=== PATIENT | female | born 1955 | race Caucasian/White ===

== ENCOUNTER 2021-02-18 09:57 | Emergency (ER) | payer MEDICARE ==
[2021-02-18 10:13] VITALS: TEMP 99
[2021-02-18] MEDS ORDERED: KETOROLAC 15 MG/ML 1 ML VIAL IVP STA (10:21)
--- NOTE | 2021-02-18 10:35 | ED ---
Weakness HPI - General Chief complaint: Weakness Stated complaint: Weakness Time Seen by Provider: 02/18/21 10:06 Source: patient, EMS Mode of arrival: EMS Limitations: no limitations - History of Present Illness Initial comments: Patient is a 65-year-old female with history of 50 [place], chronic bronchitis, presenting in the emergency department via EMS with multiple points today. She is mainly complaining of an increase in her fibromyalgia pain as well as increase in her shortness of breath. She states she has become really weak over the past few weeks. She's been unable to get up from her chair and toilet without help. Patient states she was supposed to have a follow-up with her doctors today but felt too weak to get out of the house so she called EMS instead. She denies any fevers or chills, she has been having some mild nausea, intermittent diarrhea. Nothing has been consistent. She denies any abdominal pain. She denies any dysuria. No chest pain, she feels like the shortness of breath is mostly with exertion but it takes a long time to recover when she sits down and rests. She denies any falls or trauma. She denies any dizziness or lightheadedness, no blurry vision. Patient denies any recent new medications. She has no further complaints at this time. Upon arrival to the ER, her vital signs are stable. - Related Data Home Medications Medication Instructions Recorded Confirmed Amitriptyline HCl [Elavil] 50 mg PO BID 02/18/21 02/18/21 Baclofen [Lioresal] 20 mg PO TID 02/18/21 02/18/21 Diclofenac Sodium [Voltaren] 75 mg PO BID 02/18/21 02/18/21 FLUoxetine HCL [PROzac] 20 mg PO DAILY 02/18/21 02/18/21 Furosemide [Lasix] 40 mg PO BID 02/18/21 02/18/21 Montelukast [Singulair] 10 mg PO DAILY 02/18/21 02/18/21 Omeprazole 40 mg PO DAILY 02/18/21 02/18/21 Pregabalin [Lyrica] 150 mg PO TID 02/18/21 02/18/21 hydrOXYzine pamoate [Vistaril] 25 mg PO TID 02/18/21 02/18/21 lisinopriL 30 mg PO DAILY 02/18/21 02/18/21 predniSONE 10 mg PO DAILY 02/18/21 02/18/21 Previous Rx's Medication Instructions Recorded Azithromycin [Zithromax Z-pack (6 0 mg PO DIRECTED #6 tab 02/18/21 tabs)] predniSONE [Deltasone] 20 mg PO DAILY 5 Days #5 tab 02/18/21 Allergies Allergy/AdvReac Type Severity Reaction Status Date / Time Penicillins Allergy Rash/Hives Verified 02/18/21 11:48 sulfamethoxazole Allergy Rash/Hives Verified 02/18/21 11:48 [From Bactrim] trimethoprim [From Bactrim] Allergy Rash/Hives Verified 02/18/21 11:48 Review of Systems ROS Statement: Those systems with pertinent positive or pertinent negative responses have been documented in the HPI. ROS Other: All systems not noted in ROS Statement are negative. Past Medical History Past Medical History: Fibromyalgia, Hypertension Additional Past Medical History / Comment(s): chronic bronchitis, muscle spasms History of Any Multi-Drug Resistant Organisms: None Reported Past Surgical History: Hysterectomy, Orthopedic Surgery Past Psychological History: Anxiety, Depression Smoking Status: Never smoker Past Alcohol Use History: None Reported Past Drug Use History: None Reported General Exam - General Exam Comments Initial Comments: GENERAL: Patient is well-developed and well-nourished. Patient is nontoxic and in no acute distress. HEAD: Atraumatic, normocephalic. EYES: Pupils equal round and reactive to light, extraocular movements intact, sclera anicteric, conjunctiva are normal. Eyelids were unremarkable. ENT: TMs normal, nares patent, oropharynx clear without exudates. Moist mucous memb ranes. NECK: Normal range of motion, supple without lymphadenopathy or JVD. LUNGS: Unlabored respirations. Breath sounds clear to auscultation bilaterally and equal. No wheezes rales or rhonchi. HEART: Regular rate and rhythm without murmurs, rubs or gallops. ABDOMEN: Soft, nontender, normoactive bowel sounds. No guarding, no rebound. No masses appreciated. : Deferred MUSCULOSKELETAL: Normal extremities with adequate strength and normal range of motion, no pitting or edema. No clubbing or cyanosis. NEUROLOGICAL: Patient is alert and oriented x 3. Motor and sensory are also intact. Cranial nerves II through XII grossly intact. Symmetrical smile. Normal speech, normal gait. PSYCH: Normal mood, normal affect. SKIN: Warm, Dry, normal turgor, no rashes or lesions noted. Limitations: no limitations Course Vital Signs 02/18/21 02/18/21 10:07 12:11 Temperature 99 F Pulse Rate 95 86 Respiratory 22 18 Rate Blood Pressure 132/73 139/73 O2 Sat by Pulse 96 100 Oximetry EKG Findings - EKG Comments: EKG Findings:: Normal sinus rhythm, normal ECG, no signs of acute process at this time. Ventricular rate 92, TX interval 170, QT 380. Medical Decision Making - Medical Decision Making Patient is a 65-year-old female with history of fibromyalgia, chronic bronchitis presenting with generalized weakness, increase in her chronic pain as well as increasing shortness of breath. Her vitals are stable, her exam reveals no acute process at this time. EKG shows normal sinus rhythm. Labs are unremarkable today including normal troponin, BNP. Urine shows no evidence of infection, cold it is negative. Chest x-ray shows limitation secondary to low lung volumes, there could be some early developing infiltrate in the right mid lung. I discussed these findings with the patient. Recommended continuing to follow-up with her special to this. Patient's cough and increase in shortness of breath, I will treat her with some steroids antibiotic for the next few days. She is agreeable to this plan of care and she is stable for discharge. Return parameters were discussed with her and she verbalized understanding. Case discussed with Dr. Perera. - Lab Data Result diagrams: 02/18/21 10:48 02/18/21 10:48 Lab Results 02/18/21 02/18/21 02/18/21 Range/Units 10:48 10:48 10:48 WBC 7.4 (3.8-10.6) k/uL RBC 4.14 (3.80-5.40) m/uL Hgb 12.2 (11.4-16.0) gm/dL Hct 38.9 (34.0-46.0) % MCV 94.0 (80.0-100.0) fL MCH 29.4 (25.0-35.0) pg MCHC 31.2 (31.0-37.0) g/dL RDW 13.4 (11.5-15.5) % Plt Count 277 (150-450) k/uL MPV 7.4 Neutrophils % 56 % Lymphocytes % 25 % Monocytes % 7 % Eosinophils % 11 % Basophils % 1 % Neutrophils # 4.2 (1.3-7.7) k/uL Lymphocytes # 1.8 (1.0-4.8) k/uL Monocytes # 0.5 (0-1.0) k/uL Eosinophils # 0.8 H (0-0.7) k/uL Basophils # 0.1 (0-0.2) k/uL PT 10.7 (9.0-12.0) sec INR 1.0 (<1.2) APTT 22.0 (22.0-30.0) sec Sodium 139 (137-145) mmol/L Potassium 4.4 (3.5-5.1) mmol/L Chloride 107 (98-107) mmol/L Carbon Dioxide 24 (22-30) mmol/L Anion Gap 8 mmol/L BUN 20 H (7-17) mg/dL Creatinine 0.56 (0.52-1.04) mg/dL Est GFR (CKD-EPI)AfAm >90 (>60 ml/min/1.73 sqM) Est GFR (CKD-EPI)NonAf >90 (>60 ml/min/1.73 sqM) Glucose 105 H (74-99) mg/dL Plasma Lactic Acid [place] (0.7-2.0) mmol/L Calcium 9.6 (8.4-10.2) mg/dL Magnesium 1.7 (1.6-2.3) mg/dL Total Bilirubin 0.5 (0.2-1.3) mg/dL AST 33 (14-36) U/L ALT 20 (4-34) U/L Alkaline Phosphatase 66 (38-126) U/L Troponin I (0.000-0.034) ng/mL NT-Pro-B Natriuret Pep pg/mL Total Protein 6.9 (6.3-8.2) g/dL Albumin 3.9 (3.5-5.0) g/dL Urine Color Urine Appearance (Clear) Urine pH (5.0-8.0) Ur Specific [place] (1.001-1.035) Urine Protein (Negative) Urine Glucose (UA) (Negative) Urine Ketones (Negative) Urine Blood (Negative) Urine Nitrite (Negative) Urine Bilirubin (Negative) Urine Urobilinogen (<2.0) mg/dL Ur Leukocyte Esterase (Negative) Coronavirus (PCR) (Not Detectd) 02/18/21 02/18/21 02/18/21 Range/Units 10:48 10:48 10:48 WBC (3.8-10.6) k/uL RBC (3.80-5.40) m/uL Hgb (11.4-16.0) gm/dL Hct (34.0-46.0) % MCV (80.0-100.0) fL MCH (25.0-35.0) pg MCHC (31.0-37.0) g/dL RDW (11.5-15.5) % Plt Count (150-450) k/uL MPV Neutrophils % % Lymphocytes % % Monocytes % % Eosinophils % % Basophils % % Neutrophils # (1.3-7.7) k/uL Lymphocytes # (1.0-4.8) k/uL Monocytes # (0-1.0) k/uL Eosinophils # (0-0.7) k/uL Basophils # (0-0.2) k/uL PT (9.0-12.0) sec INR (<1.2) APTT (22.0-30.0) sec Sodium (137-145) mmol/L Potassium (3.5-5.1) mmol/L Chloride (98-107) mmol/L Carbon Dioxide (22-30) mmol/L Anion Gap mmol/L BUN (7-17) mg/dL Creatinine (0.52-1.04) mg/dL Est GFR (CKD-EPI)AfAm (>60 ml/min/1.73 sqM) Est GFR (CKD-EPI)NonAf (>60 ml/min/1.73 sqM) Glucose (74-99) mg/dL Plasma Lactic Acid [place] 1.4 (0.7-2.0) mmol/L Calcium (8.4-10.2) mg/dL Magnesium (1.6-2.3) mg/dL Total Bilirubin (0.2-1.3) mg/dL AST (14-36) U/L ALT (4-34) U/L Alkaline Phosphatase (38-126) U/L Troponin I <0.012 (0.000-0.034) ng/mL NT-Pro-B Natriuret Pep 64 pg/mL Total Protein (6.3-8.2) g/dL Albumin (3.5-5.0) g/dL Urine Color Urine Appearance (Clear) Urine pH (5.0-8.0) Ur Specific [place] (1.001-1.035) Urine Protein (Negative) Urine Glucose (UA) (Negative) Urine Ketones (Negative) Urine Blood (Negative) Urine Nitrite (Negative) Urine Bilirubin (Negative) Urine Urobilinogen (<2.0) mg/dL Ur Leukocyte Esterase (Negative) Coronavirus (PCR) (Not Detectd) 02/18/21 02/18/21 Range/Units 10:48 12:52 WBC (3.8-10.6) k/uL RBC (3.80-5.40) m/uL Hgb (11.4-16.0) gm/dL Hct (34.0-46.0) % MCV (80.0-100.0) fL MCH (25.0-35.0) pg MCHC (31.0-37.0) g/dL RDW (11.5-15.5) % Plt Count (150-450) k/uL MPV Neutrophils % % Lymphocytes % % Monocytes % % Eosinophils % % Basophils % % Neutrophils # (1.3-7.7) k/uL Lymphocytes # (1.0-4.8) k/uL Monocytes # (0-1.0) k/uL Eosinophils # (0-0.7) k/uL Basophils # (0-0.2) k/uL PT (9.0-12.0) sec INR (<1.2) APTT (22.0-30.0) sec Sodium (137-145) mmol/L Potassium (3.5-5.1) mmol/L Chloride (98-107) mmol/L Carbon Dioxide (22-30) mmol/L Anion Gap mmol/L BUN (7-17) mg/dL Creatinine (0.52-1.04) mg/dL Est GFR (CKD-EPI)AfAm (>60 ml/min/1.73 sqM) Est GFR (CKD-EPI)NonAf (>60 ml/min/1.73 sqM) Glucose (74-99) mg/dL Plasma Lactic Acid [place] (0.7-2.0) mmol/L Calcium (8.4-10.2) mg/dL Magnesium (1.6-2.3) mg/dL Total Bilirubin (0.2-1.3) mg/dL AST (14-36) U/L ALT (4-34) U/L Alkaline Phosphatase (38-126) U/L Troponin I (0.000-0.034) ng/mL NT-Pro-B Natriuret Pep pg/mL Total Protein (6.3-8.2) g/dL Albumin (3.5-5.0) g/dL Urine Color Yellow Urine Appearance Clear (Clear) Urine pH 5.5 (5.0-8.0) Ur Specific [place] 1.022 (1.001-1.035) Urine Protein Trace H (Negative) Urine Glucose (UA) Negative (Negative) Urine Ketones Negative (Negative) Urine Blood Negative (Negative) Urine Nitrite Negative (Negative) Urine Bilirubin Negative (Negative) Urine Urobilinogen <2.0 (<2.0) mg/dL Ur Leukocyte Esterase Negative (Negative) Coronavirus (PCR) Not Detected (Not Detectd) Disposition Clinical Impression: Weakness, Cough, Chronic bronchitis Disposition: HOME SELF-CARE Condition: Stable Instructions (If sedation given, give patient instructions): Viral Syndrome (ED) Additional Instructions: Please return to the Emergency Department if symptoms worsen or any other concerns. Take medications as prescribed. Follow-up with your family doctor. Prescriptions: predniSONE [Deltasone] 20 mg PO DAILY 5 Days #5 tab Azithromycin [Zithromax Z-pack (6 tabs)] 0 mg PO DIRECTED #6 tab Is patient prescribed a controlled substance at d/c from ED?: No Referrals: Juan Carlos Garcia MD [Primary Care Provider] - 1-2 days Time of Disposition: 13:39
[2021-02-18 11:14] LABS: Basophils # (A) 0.1 k/uL (0-0.2); Basophils % (A) 1 %; Eosinophils # (A) 0.8 k/uL (0-0.7); Eosinophils % (A) 11 %; HCT 38.9 % (34.0-46.0); HGB 12.2 gm/dL (11.4-16.0); Lymphocytes # (A) 1.8 k/uL (1.0-4.8); Lymphocytes % (A) 25 %; MCH 29.4 pg (25.0-35.0); MCHC 31.2 g/dL (31.0-37.0); Mean Platelet Volume 7.4; Monocytes # (A) 0.5 k/uL (0-1.0); Monocytes % (A) 7 %; Neutrophils # (A) 4.2 k/uL (1.3-7.7); Neutrophils % (A) 56 %; Platelet Count 277 k/uL (150-450); RBC 4.14 m/uL (3.80-5.40); RDW 13.4 % (11.5-15.5); WBC 7.4 k/uL (3.8-10.6)
--- NOTE | 2021-02-18 11:18 | XR ---
EXAMINATION TYPE: XR chest 2V DATE OF EXAM: 02/18/2021 COMPARISON: 02/18/2021 HISTORY: 65-year-old female weakness, chest pain, shortness of breath TECHNIQUE: AP and lateral views FINDINGS: Heart normal size. Aorta and pulmonary vasculature within normal limits. Diffuse hazy densities on la rge patient body habitus limits the evaluation. Suspect some underlying strandy areas of atelectasis. Early developing focal opacity at the periphery of the right midlung is difficult to exclude. Low ivette ng volumes. IMPRESSION: Exam limitations due to low lung volumes and large patient body habitus. There could be some atelecta sis or early developing infiltrate at the periphery of the right mid lung.
[2021-02-18 11:28] LABS: ALT 20 U/L (4-34); AST 33 U/L (14-36); African American GFR (CKD) >90 (>60 ml/min/1.73 sqM); Albumin 3.9 g/dL (3.5-5.0); Alkaline Phosphatase 66 U/L (38-126); Anion Gap 8 mmol/L; Blood Urea Nitrogen 20 mg/dL (7-17); Calcium 9.6 mg/dL (8.4-10.2); Carbon Dioxide 24 mmol/L (22-30); Chloride 107 mmol/L (98-107); Glucose 105 mg/dL (74-99); Magnesium 1.7 mg/dL (1.6-2.3); Non-African American GFR(CKD) >90 (>60 ml/min/1.73 sqM); Potassium 4.4 mmol/L (3.5-5.1); Sodium 139 mmol/L (137-145); Total Bilirubin 0.5 mg/dL (0.2-1.3); Total Protein 6.9 g/dL (6.3-8.2)
[2021-02-18 11:34] LABS: Prothrombin Time 10.7 sec (9.0-12.0)
[2021-02-18 12:14] VITALS: BP 139/73; PULSE 86; RESP 18
[2021-02-18 13:30] LABS: Appearance,Urine Clear (Clear); Bilirubin,Urine Negative (Negative); Blood,Urine Negative (Negative); Color,Urine Yellow; Glucose,Urine (UA) Negative (Negative); Ketones,Urine Negative (Negative); Leukocyte Esterase,Urine Negative (Negative); Nitrite,Urine Negative (Negative); PH, Urine 5.5 (5.0-8.0); Protein,Urine Trace (Negative); Specific Gravity,Urine 1.022 (1.001-1.035); Urobilinogen,Urine <2.0 mg/dL (<2.0)
== END 2021-02-18 13:51 | disposition home or self-care (01) ==
LOC: EC 09:57
DX: J40 Bronchitis, not specified as acute or chronic (principal); R53.1 Weakness; M79.7 Fibromyalgia; I10 Essential (primary) hypertension; F41.9 Anxiety disorder, unspecified; F32.9 Major depressive disorder, single episode, unspecified; Z88.0 Allergy status to penicillin; Z88.1 Allergy status to other antibiotic agents; Z88.2 Allergy status to sulfonamides; Z90.710 Acquired absence of both cervix and uterus; Z20.822 Contact with and (suspected) exposure to COVID-19
CPT/HCPCS: 36415; 71046; 80053; 81003; 83605; 83735; 83880; 84484; 85025; 85610; 85730; 87635; 93005; 96374; 99285

== ENCOUNTER → 2021-02-25 | Outpatient (CLI) | payer MEDICARE ==
[2021-02-26 06:56] LABS: T4, Free (Free Thyroxine) 1.2 ng/dL (0.80-1.80)
[2021-02-26 11:52] LABS: Basophils # (A) 0.1 k/uL (0-0.2); Basophils % (A) 1 %; Eosinophils # (A) 0.4 k/uL (0-0.7); Eosinophils % (A) 3 %; HCT 41.3 % (34.0-46.0); HGB 12.8 gm/dL (11.4-16.0); Hypochromasia Slight; Lymphocytes # (A) 2.5 k/uL (1.0-4.8); Lymphocytes % (A) 21 %; MCH 29.7 pg (25.0-35.0); MCHC 31.1 g/dL (31.0-37.0); MCV 95.6 fL (80.0-100.0); Mean Platelet Volume 9.9; Monocytes # (A) 0.6 k/uL (0-1.0); Monocytes % (A) 5 %; Neutrophils # (A) 8.5 k/uL (1.3-7.7); Neutrophils % (A) 69 %; Platelet Count 317 k/uL (150-450); RBC 4.32 m/uL (3.80-5.40); RDW 13.8 % (11.5-15.5); WBC 12.2 k/uL (3.8-10.6)
[2021-02-26 14:45] LABS: Erythrocyte Sedimentation Rate 25 mm/hr (0-20)
[2021-02-26 23:01] LABS: African American GFR (CKD) 110.9 (60.0-200.0); Albumin 4.9 g/dL (3.80-4.90); Albumin/Globulin Ratio 1.88 (1.60-3.17); Anion Gap 13.8 mmol/L (4.00-12.00); BUN/Creat Ratio 28.33 Ratio (12.00-20.00); Carbon Dioxide 24.2 mmol/L (21.6-31.8); Globulin 2.6 g/dL (1.6-3.3); Non-African American GFR(CKD) 95.7 (60.0-200.0); Potassium 4.2 mmol/L (3.5-5.5); Total Bilirubin 0.4 mg/dL (0.3-1.2); Total Protein 7.5 g/dL (6.2-8.2)
[2021-02-26 23:02] LABS: C Reactive Protein 0.8 mg/dL (0.0-0.8)
== END | disposition home or self-care (01) ==
LOC: LABWHC1 15:54
PROVIDERS: ATTEND Psychiatry & Neurology Neurology
DX: Z51.81 Encounter for therapeutic drug level monitoring (principal); E53.9 Vitamin B deficiency, unspecified; E55.9 Vitamin D deficiency, unspecified; I49.9 Cardiac arrhythmia, unspecified; R00.0 Tachycardia, unspecified; R94.31 Abnormal electrocardiogram [ECG] [EKG]
CPT/HCPCS: 36415; 80053; 82306; 82550; 82607; 83540; 84207; 84439; 84443; 84466; 84481; 85025; 85652; 86038; 86140; 93005

== ENCOUNTER → 2021-03-18 | Outpatient (CLI) | payer MEDICARE ==
--- NOTE | 2021-03-19 08:17 | CT ---
EXAMINATION TYPE: CT chest wo con DATE OF EXAM: 03/18/2021 COMPARISON: Chest x-ray 02/25/2021 HISTORY: Interstitial lung disease CT DLP: 1015.30 mGycm. Automated Exposure Control for Dose Reduction was Utilized. TECHNIQUE: CT scan of the thorax is performed without IV contrast. FINDINGS: LUNGS: The lungs show some air bronchograms, consolidation along the right hemidiaphragm which is adelina vated, findings likely represent scarring or atelectasis, difficult to exclude pneumonia. There is no pleural effusion or pneumothorax seen. The tracheobronchial tree is patent. MEDIASTINUM: Lack of IV contrast is noted to limit evaluation for mediastinal and especially hilar ad enopathy. There are no definitive greater than 1 cm hilar or mediastinal lymph nodes. No cardiomega ly or pericardial effusion is seen. The heart is not enlarged. There are prominent epicardial fat pad s. OTHER: Liver shows low attenuation likely due to hepatic steatosis, liver is enlarged. IMPRESSION: Findings at the right lung base as described. Hepatomegaly, hepatic steatosis. Lack of co ntrast could compromise sensitivity of the exam.
== END | disposition home or self-care (01) ==
LOC: RADCTMAIN 17:34
PROVIDERS: ATTEND Internal Medicine
DX: K76.0 Fatty (change of) liver, not elsewhere classified (principal); R16.0 Hepatomegaly, not elsewhere classified
CPT/HCPCS: 71250

== ENCOUNTER 2022-03-27 11:22 | Emergency (ER) | payer MEDICARE ==
[2022-03-27 11:35] VITALS: BP 122/73; PULSE 76; RESP 16; TEMP 97.8
[2022-03-27] MEDS ORDERED: SODIUM CHLORIDE 0.9% 500 ML 500 ML IV STA (12:16)
[2022-03-27 12:27] LABS: Basophils # (A) 0.1 k/uL (0-0.2); Basophils % (A) 1 %; Eosinophils # (A) 0.2 k/uL (0-0.7); Eosinophils % (A) 2 %; HCT 45.1 % (34.0-46.0); HGB 14.2 gm/dL (11.4-16.0); Hypochromasia Moderate; Lymphocytes # (A) 1.3 k/uL (1.0-4.8); Lymphocytes % (A) 10 %; MCH 29.3 pg (25.0-35.0); MCHC 31.6 g/dL (31.0-37.0); MCV 92.7 fL (80.0-100.0); Mean Platelet Volume 8.5; Monocytes # (A) 0.5 k/uL (0-1.0); Monocytes % (A) 4 %; Neutrophils # (A) 11.3 k/uL (1.3-7.7); Neutrophils % (A) 83 %; Platelet Count 226 k/uL (150-450); RBC 4.86 m/uL (3.80-5.40); RDW 14.2 % (11.5-15.5); WBC 13.7 k/uL (3.8-10.6)
[2022-03-27 12:40] LABS: Partial Thromboplastin Time 22.5 sec (22.0-30.0); Prothrombin Time 10.7 sec (9.0-12.0)
[2022-03-27 12:54] LABS: Albumin 4.2 g/dL (3.5-5.0); Calcium 9.3 mg/dL (8.4-10.2); Total Bilirubin 0.6 mg/dL (0.2-1.3); Total Protein 7.4 g/dL (6.3-8.2)
[2022-03-27 13:34] LABS: Appearance,Urine Clear (Clear); Bacteria,Urine Rare /hpf; Bilirubin,Urine Negative (Negative); Blood,Urine Negative (Negative); Color,Urine Yellow; Glucose,Urine (UA) Negative (Negative); Ketones,Urine Negative (Negative); Leukocyte Esterase,Urine Large (Negative); Nitrite,Urine Positive (Negative); PH, Urine 5.5 (5.0-8.0); Protein,Urine Trace (Negative); RBC,Urine 4 /hpf (0-5); Specific Gravity,Urine 1.013 (1.001-1.035); Urobilinogen,Urine <2.0 mg/dL (<2.0); WBC,Urine 32 /hpf (0-5)
--- NOTE | 2022-03-27 14:00 | XR ---
EXAMINATION TYPE: XR chest 1V DATE OF EXAM: 03/27/2022 1:50 PM COMPARISON: Chest radiographs from 02/18/2021. TECHNIQUE: XR chest 1V Frontal view of the chest. CLINICAL INDICATION:Female, 66 years old with history of fall, pain; FINDINGS: Diffuse haziness related to large body habitus which limits evaluation. Lungs/Pleura: Low lung volumes are present. There is no evidence of pleural effusion, focal consolida tion, or pneumothorax. Pulmonary vascularity: Unremarkable. Heart/mediastinum: Cardiomediastinal silhouette is unremarkable. Musculoskeletal: No acute osseous pathology. IMPRESSION: Low lung volumes with large body habitus limits evaluation. No evidence of acute cardiopulmonary proc ess.
--- NOTE | 2022-03-27 14:02 | XR ---
EXAMINATION TYPE: XR Hip LT and AP Pelvis DATE OF EXAM: 03/27/2022 1:50 PM INDICATION: Patient age:Female; 66 years old; Reason for study: fall, pain; PHH. COMPARISON: None. TECHNIQUE: The left hip was examined in the frontal and lateral projections and a AP pelvis. FINDINGS: Limited examination due to patient's body habitus. No evidence of any acute osseous patholo gy, joint dislocation, or soft tissue swelling. IMPRESSION: No acute osseous pathology.
--- NOTE | 2022-03-27 14:41 | ED ---
Weakness HPI - General Chief complaint: Weakness Stated complaint: increased weakness Time Seen by Provider: 03/27/22 11:28 Source: patient, EMS, RN notes reviewed Mode of arrival: EMS Limitations: physical limitation - History of Present Illness Initial comments: This a 66-year-old female presents emergency department via EMS with family for evaluation of weakness, fall. Patient lives at home with family who is currently bedbound only transfers with multiple people to a commode. Patient has not walked in several years. Patient states that she's had several falls during transferring with people in which she had a call EMS for lift assist. Patient does complain of mild hip discomfort after a fall. Patient denies any head injury no loss conscious. Patient states she has issues with inner incontinence and which she states that she's been having more frequent accidents. - Related Data Home Medications Medication Instructions Recorded Confirmed Amitriptyline HCl [Elavil] 50 - 100 mg PO HS 02/18/21 03/27/22 Baclofen [Lioresal] 20 mg PO TID 02/18/21 03/27/22 Diclofenac Sodium [Voltaren] 75 mg PO BID 02/18/21 03/27/22 Furosemide [Lasix] 40 mg PO BID PRN 02/18/21 03/27/22 Montelukast [Singulair] 10 mg PO DAILY 02/18/21 03/27/22 Omeprazole 40 mg PO DAILY 02/18/21 03/27/22 Pregabalin [Lyrica] 150 mg PO TID 02/18/21 03/27/22 lisinopriL 30 mg PO DAILY 02/18/21 03/27/22 predniSONE 10 mg PO DAILY PRN 02/18/21 03/27/22 Cyclobenzaprine [Flexeril] 10 mg PO TID PRN 03/27/22 03/27/22 FLUoxetine HCL 40 mg PO DAILY 03/27/22 03/27/22 FLUoxetine HCL 40 mg PO DAILY 03/27/22 03/27/22 Naproxen [EC-Naprosyn] 500 mg PO BID PRN 03/27/22 03/27/22 hydrOXYzine HCL [Atarax] 25 mg PO TID PRN 03/27/22 03/27/22 Allergies Allergy/AdvReac Type Severity Reaction Status Date / Time Penicillins Allergy Rash/Hives Verified 03/27/22 12:35 sulfamethoxazole Allergy Rash/Hives Verified 03/27/22 12:35 [From Bactrim] trimethoprim [From Bactrim] Allergy Rash/Hives Verified 03/27/22 12:35 Review of Systems ROS Statement: Those systems with pertinent positive or pertinent negative responses have been documented in the HPI. ROS Other: All systems not noted in ROS Statement are negative. Past Medical History Past Medical History: Fibromyalgia, Hypertension Additional Past Medical History / Comment(s): chronic bronchitis, muscle spasms History of Any Multi-Drug Resistant Organisms: None Reported Past Surgical History: Hysterectomy, Orthopedic Surgery Past Psychological History: Anxiety, Depression Smoking Status: Never smoker Past Alcohol Use History: None Reported Past Drug Use History: None Reported General Exam Limitations: no limitations, physical limitation General appearance: alert, in no apparent distress Head exam: Present: atraumatic, normocephalic, normal inspection Eye exam: Present: normal appearance, PERRL, EOMI. Absent: scleral icterus, conjunctival injection, periorbital swelling Respiratory exam: Present: normal lung sounds bilaterally. Absent: respiratory distress, wheezes, rales, rhonchi, stridor Cardiovascular Exam: Present: regular rate, normal rhythm, normal heart sounds. Absent: systolic murmur, diastolic murmur, rubs, gallop, clicks GI/Abdominal exam: Present: soft, normal bowel sounds. Absent: distended, tenderness, guarding, rebound, rigid Neurological exam: Present: alert, oriented X3 Course Vital Signs 03/27/22 11:26 Temperature 97.8 F Pulse Rate 76 Respiratory 16 Rate Blood Pressure 122/73 O2 Sat by Pulse 93 L Oximetry Medical Decision Making - Medical Decision Making 66-year-old female presented for generalized weakness. Patient has evidence of urinary tract infection. Patient is currently bedbound unable to ambulate and has been this way for several years. He shouldn't has multiple people including home health care nursing to perform her daily activities. Patient unable to perform ADLs by herself. Patient we discharged with Tomasz lift, Le catheter with continuation of home health care nursing. - Lab Data Result diagrams: 03/27/22 12:00 03/27/22 12:00 Lab Results 03/27/22 03/27/22 03/27/22 Range/Units 12:00 12:00 12:00 WBC 13.7 H (3.8-10.6) k/uL RBC 4.86 (3.80-5.40) m/uL Hgb 14.2 (11.4-16.0) gm/dL Hct 45.1 (34.0-46.0) % MCV 92.7 (80.0-100.0) fL MCH 29.3 (25.0-35.0) pg MCHC 31.6 (31.0-37.0) g/dL RDW 14.2 (11.5-15.5) % Plt Count 226 (150-450) k/uL MPV 8.5 Neutrophils % 83 % Lymphocytes % 10 % Monocytes % 4 % Eosinophils % 2 % Basophils % 1 % Neutrophils # 11.3 H (1.3-7.7) k/uL Lymphocytes # 1.3 (1.0-4.8) k/uL Monocytes # 0.5 (0-1.0) k/uL Eosinophils # 0.2 (0-0.7) k/uL Basophils # 0.1 (0-0.2) k/uL Hypochromasia Moderate PT 10.7 (9.0-12.0) sec INR 1.0 (<1.2) APTT 22.5 (22.0-30.0) sec Sodium 143 (137-145) mmol/L Potassium 5.0 (3.5-5.1) mmol/L Chloride 104 (98-107) mmol/L Carbon Dioxide 26 (22-30) mmol/L Anion Gap 13 mmol/L BUN 55 H (7-17) mg/dL Creatinine 1.53 H (0.52-1.04) mg/dL Est GFR (CKD-EPI)AfAm 41 (>60 ml/min/1.73 sqM) Est GFR (CKD-EPI)NonAf 35 (>60 ml/min/1.73 sqM) Glucose 88 (74-99) mg/dL Plasma Lactic Acid Pelon (0.7-2.0) mmol/L Calcium 9.3 (8.4-10.2) mg/dL Magnesium 2.0 (1.6-2.3) mg/dL Total Bilirubin 0.6 (0.2-1.3) mg/dL AST 37 H (14-36) U/L ALT 32 (4-34) U/L Alkaline Phosphatase 96 (38-126) U/L Troponin I (0.000-0.034) ng/mL Total Protein 7.4 (6.3-8.2) g/dL Albumin 4.2 (3.5-5.0) g/dL Urine Color Urine Appearance (Clear) Urine pH (5.0-8.0) Ur Specific [place] (1.001-1.035) Urine Protein (Negative) Urine Glucose (UA) (Negative) Urine Ketones (Negative) Urine Blood (Negative) Urine Nitrite (Negative) Urine Bilirubin (Negative) Urine Urobilinogen (<2.0) mg/dL Ur Leukocyte Esterase (Negative) Urine RBC (0-5) /hpf Urine WBC (0-5) /hpf Urine Bacteria (None) /hpf 03/27/22 03/27/22 03/27/22 Range/Units 12:00 12:00 13:09 WBC (3.8-10.6) k/uL RBC (3.80-5.40) m/uL Hgb (11.4-16.0) gm/dL Hct (34.0-46.0) % MCV (80.0-100.0) fL MCH (25.0-35.0) pg MCHC (31.0-37.0) g/dL RDW (11.5-15.5) % Plt Count (150-450) k/uL MPV Neutrophils % % Lymphocytes % % Monocytes % % Eosinophils % % Basophils % % Neutrophils # (1.3-7.7) k/uL Lymphocytes # (1.0-4.8) k/uL Monocytes # (0-1.0) k/uL Eosinophils # (0-0.7) k/uL Basophils # (0-0.2) k/uL Hypochromasia PT (9.0-12.0) sec INR (<1.2) APTT (22.0-30.0) sec Sodium (137-145) mmol/L Potassium (3.5-5.1) mmol/L Chloride (98-107) mmol/L Carbon Dioxide (22-30) mmol/L Anion Gap mmol/L BUN (7-17) mg/dL Creatinine (0.52-1.04) mg/dL Est GFR (CKD-EPI)AfAm (>60 ml/min/1.73 sqM) Est GFR (CKD-EPI)NonAf (>60 ml/min/1.73 sqM) Glucose (74-99) mg/dL Plasma Lactic Acid Pelon 1.3 (0.7-2.0) mmol/L Calcium (8.4-10.2) mg/dL Magnesium (1.6-2.3) mg/dL Total Bilirubin (0.2-1.3) mg/dL AST (14-36) U/L ALT (4-34) U/L Alkaline Phosphatase (38-126) U/L Troponin I <0.012 (0.000-0.034) ng/mL Total Protein (6.3-8.2) g/dL Albumin (3.5-5.0) g/dL Urine Color Yellow Urine Appearance Clear (Clear) Urine pH 5.5 (5.0-8.0) Ur Specific [place] 1.013 (1.001-1.035) Urine Protein Trace H (Negative) Urine Glucose (UA) Negative (Negative) Urine Ketones Negative (Negative) Urine Blood Negative (Negative) Urine Nitrite Positive H (Negative) Urine Bilirubin Negative (Negative) Urine Urobilinogen <2.0 (<2.0) mg/dL Ur Leukocyte Esterase Large H (Negative) Urine RBC 4 (0-5) /hpf Urine WBC 32 H (0-5) /hpf Urine Bacteria Rare H (None) /hpf Disposition Clinical Impression: UTI (urinary tract infection), Weakness, Unable to ambulate Disposition: HOME SELF-CARE Condition: Stable Instructions (If sedation given, give patient instructions): Urinary Tract Infection in Women (DC) Additional Instructions: Please return to the Emergency Department if symptoms worsen or any other concerns. Is patient prescribed a controlled substance at d/c from ED?: No Referrals: Juan Carlos Garcia MD [Primary Care Provider] - 1-2 days Time of Disposition: 14:40
== END 2022-03-27 16:11 | disposition home or self-care (01) ==
LOC: EC 11:22
DX: N39.0 Urinary tract infection, site not specified (principal); F32.A Depression, unspecified; F41.9 Anxiety disorder, unspecified; Z79.899 Other long term (current) drug therapy; Z79.811 Long term (current) use of aromatase inhibitors; Z88.0 Allergy status to penicillin; Z88.2 Allergy status to sulfonamides
CPT/HCPCS: 36415; 71045; 73502; 80053; 81001; 83605; 83735; 84484; 85025; 85610; 85730; 87086; 93005; 96360; 99285

== ENCOUNTER 2022-04-02 11:09 | Inpatient (IN) | payer MEDICARE ==
[2022-04-02] MEDS ORDERED: IPRATROPIUM-ALBUTEROL 3 ML NEB INHALATION STA (11:16)
[2022-04-02 11:38] LABS: Basophils # (A) 0.1 k/uL (0-0.2); Basophils % (A) 1 %; Eosinophils # (A) 0.8 k/uL (0-0.7); Eosinophils % (A) 4 %; HCT 41.3 % (34.0-46.0); HGB 13.2 gm/dL (11.4-16.0); Hypochromasia Slight; Lymphocytes % (A) 10 %; MCH 29.1 pg (25.0-35.0); MCV 90.9 fL (80.0-100.0); Mean Platelet Volume 9.8; Monocytes # (A) 0.9 k/uL (0-1.0); Monocytes % (A) 4 %; Neutrophils # (A) 15.9 k/uL (1.3-7.7); Neutrophils % (A) 80 %; Platelet Count 190 k/uL (150-450); RBC 4.54 m/uL (3.80-5.40); RDW 14.7 % (11.5-15.5); WBC 19.8 k/uL (3.8-10.6)
--- NOTE | 2022-04-02 11:41 | XR ---
EXAMINATION TYPE: XR chest 1V portable DATE OF EXAM: 04/02/2022 HISTORY: Shortness of breath. COMPARISON: 03/27/22 TECHNIQUE: Single view of the chest is submitted. FINDINGS: Demonstrated are scattered senescent parenchymal change. Patchy density right infrahilar region may reflect developing infiltrate. Continued elevation right h emidiaphragm. The heart is stable. Hilar and mediastinal structures are within normal limits. Degenerative changes are seen of the dorsal spine. IMPRESSION: 1. Patchy density right infrahilar region may reflect developing infiltrate. Continued elevation rig ht hemidiaphragm.
[2022-04-02] MEDS ORDERED: VANCOMYCIN IV PER PHARMACY 1 EACH MISC MISCELLANE PRN (11:43)
[2022-04-02] MEDS ORDERED: SODIUM CHLORIDE 0.9% 1,000 ML IV STA ×2 (11:44→13:26)
[2022-04-02] MEDS ORDERED: SODIUM CHLORIDE 0.9% 500 ML 500 ML IV STA (11:45)
[2022-04-02 11:46] LABS: ALT 48 U/L (4-34); AST 121 U/L (14-36); African American GFR (CKD) 24 (>60 ml/min/1.73 sqM); Albumin 4.1 g/dL (3.5-5.0); Alcohol <10 mg/dL; Alkaline Phosphatase 92 U/L (38-126); Anion Gap 17 mmol/L; Blood Urea Nitrogen 85 mg/dL (7-17); Carbon Dioxide 24 mmol/L (22-30); Chloride 98 mmol/L (98-107); Glucose 99 mg/dL (74-99); Non-African American GFR(CKD) 21 (>60 ml/min/1.73 sqM); Sodium 139 mmol/L (137-145); Total Protein 7.4 g/dL (6.3-8.2)
[2022-04-02] MEDS ORDERED: VANCOMYCIN 2,500 MG in SODIUM CHLORIDE 0.9% 500 ML 500 ML IVPB STA (11:47)
[2022-04-02 11:48] LABS: Prothrombin Time 10.5 sec (9.0-12.0)
[2022-04-02 11:52] LABS: Partial Thromboplastin Time 17.9 sec (22.0-30.0)
[2022-04-02] MEDS ORDERED: CEFEPIME 2 GM in SODIUM CHLORIDE 0.9% 100 ML IVPB SCH (12:00)
[2022-04-02 12:01] LABS: Potassium 6.1 mmol/L (3.5-5.1)
[2022-04-02 12:07] LABS: ABG Base Excess 0.8 mmol/L; ABG HCO3 27 mmol/L (21-25); ABG PCO2 52 mmHg (35-45); ABG PH 7.33 (7.35-7.45); ABG PO2 91 mmHg (83-108); ABG TCO2 28 mmol/L (19-24); Allen Test Performed? Yes
[2022-04-02] MEDS: NOREPINEPHRINE 4 MG in SODIUM CHLORIDE 0.9% 250 ML IV SCH (12:34)
--- NOTE | 2022-04-02 12:34 | ED ---
General Adult HPI - General Chief complaint: Shortness of Breath Stated complaint: BETHANY Time Seen by Provider: 04/02/22 11:23 Source: patient, EMS, RN notes reviewed, old records reviewed Mode of arrival: EMS Limitations: no limitations - History of Present Illness Initial comments: Patient is a 66-year-old female who presents to the emergency Department with altered mental status, respiratory distress, low blood pressure. Patient was diagnosed with a UTI a few days ago and set up with home nursing care, as well as 1 lifts. She decided not to take any of her antibiotics at home because they made her have diarrhea. She became in more respiratory distress this morning. She has had decreased by mouth intake per family. She is unable to provide much history. Denies any pain. Presented with EMS. Unknown past medical history. Possible history of CHF. Possible history of COPD. Has been bedbound for multiple weeks to months. It is obese. Chronic weakness. Presents over concern for respiratory distress and infection. - Related Data Home Medications Medication Instructions Recorded Confirmed Amitriptyline HCl [Elavil] 50 - 100 mg PO HS 02/18/21 04/02/22 Baclofen [Lioresal] 20 mg PO TID 02/18/21 04/02/22 Diclofenac Sodium [Voltaren] 75 mg PO BID 02/18/21 04/02/22 Furosemide [Lasix] 40 mg PO BID PRN 02/18/21 04/02/22 Montelukast [Singulair] 10 mg PO DAILY 02/18/21 04/02/22 Omeprazole 40 mg PO DAILY 02/18/21 04/02/22 Pregabalin [Lyrica] 150 mg PO TID 02/18/21 04/02/22 lisinopriL 30 mg PO DAILY 02/18/21 04/02/22 predniSONE 10 mg PO DAILY PRN 02/18/21 04/02/22 Cyclobenzaprine [Flexeril] 10 mg PO TID PRN 03/27/22 04/02/22 FLUoxetine HCL 40 mg PO DAILY 03/27/22 04/02/22 Naproxen [EC-Naprosyn] 500 mg PO BID PRN 03/27/22 04/02/22 hydrOXYzine HCL [Atarax] 25 mg PO TID PRN 03/27/22 04/02/22 Previous Rx's Medication Instructions Recorded Cephalexin [Keflex] 500 mg PO Q8HR #21 cap 03/27/22 Allergies Allergy/AdvReac Type Severity Reaction Status Date / Time Penicillins Allergy Rash/Hives Verified 04/02/22 15:12 sulfamethoxazole Allergy Rash/Hives Verified 04/02/22 15:12 [From Bactrim] trimethoprim [From Bactrim] Allergy Rash/Hives Verified 04/02/22 15:12 Review of Systems ROS Statement: Those systems with pertinent positive or pertinent negative responses have been documented in the HPI. ROS Other: All systems not noted in ROS Statement are negative. Past Medical History Past Medical History: Fibromyalgia, Hypertension Additional Past Medical History / Comment(s): chronic bronchitis, muscle spasms, UTI History of Any Multi-Drug Resistant Organisms: None Reported Past Surgical History: Hysterectomy, Orthopedic Surgery Past Psychological History: Anxiety, Depression Smoking Status: Never smoker Past Alcohol Use History: None Reported Past Drug Use History: None Reported General Exam - General Exam Comments Initial Comments: General: Increased work of breathing. Patient's is obese. Appears to be weak. Poor historian. HEAD: Normal with no signs of head trauma. EYES: PERRLA, EOMI, conjunctiva normal, no discharge. Pupils 3 mm and equal bilaterally. ENT: Hearing grossly intact, normal oropharynx. Mucous membranes are mildly dry. RESPIRATORY: Pupils auscultated breath sounds bilaterally. Slight wheeze. No obvious crackles. Hypoxic to 88% on room air, improved on BiPAP. C/V: Regular rate and rhythm. S1 and S2 auscultated. Chronic edema. Peripheral pulses 1-2+ in all extremities. ABD: Abd is soft, nontender, nondistended. Patient is obese. Le catheter in place. EXT: No obvious deformities. SKIN: No rashes or lesions observed on exposed skin. NEURO: Intermittently alert. Oriented to name only. GCS fluctuates between 9 and 11. Patient will move all 4 extremities. Is chronically bedbound. Difficult to complete full neurological exam at this time. Limitations: no limitations Course Vital Signs 04/02/22 04/02/22 04/02/22 11:09 11:14 11:17 Temperature 97.5 F L Pulse Rate 86 90 Respiratory 24 Rate Blood Pressure 100/76 O2 Sat by Pulse 88 L Oximetry Fraction of 50 Inspired Oxygen (FIO2) 04/02/22 04/02/22 04/02/22 11:19 11:25 13:04 Temperature Pulse Rate 84 75 Respiratory 16 Rate Blood Pressure 87/50 O2 Sat by Pulse Oximetry Fraction of 50 Inspired Oxygen (FIO2) 04/02/22 04/02/22 04/02/22 14:11 14:21 15:38 Temperature Pulse Rate 74 64 90 Respiratory 13 12 20 Rate Blood Pressure 99/44 142/82 140/81 O2 Sat by Pulse 100 100 97 Oximetry Fraction of Inspired Oxygen (FIO2) 04/02/22 15:47 Temperature Pulse Rate 90 Respiratory 16 Rate Blood Pressure 127/70 O2 Sat by Pulse 97 Oximetry Fraction of Inspired Oxygen (FIO2) Procedures - Central Line Placement Left IJ Consent Obtained: emergent situation Patient Placed on Monitor/Pulse Ox: Yes MD Prep: mask, gown, gloves Central Line Prep: Chlorhexidine scrub Local Anesthesia Used: Lidocaine 1% Amount of Anesthesia Used (mls): 5 Ultrasound Used for Placement: Yes Central Line Lumen Inserted: triple Bloods Obtained for Lab: No Central Line Position: good blood return, all ports aspirated, flushed, capped, sutured in place with nylon Dressing Applied: Tegaderm Post Procedure X-Ray: tip of catheter in good position Patient Tolerated Procedure: well Complications: none - Sepsis Sepsis Focused Exam #1 Time Sepsis Criteria Met: 11:40 Sepsis Focused Exam Date: 04/02/22 Sepsis Focused Exam Time: 14:30 Sepsis Focused Exam Complete: Yes Vital Signs & RN Notes Reviewed: Yes Capillary Refill: < 2 Seconds: Fingers, Toes Peripheral Pulses: Normal: Radial (R), Radial (L) Skin Color: Normal for Patient Respiratory Exam: normal lung sounds Cardiovascular Exam: regular rate, normal rhythm Medical Decision Making - Medical Decision Making Based on the patient's presentation and physical exam, I'm concerned for possible infection at this time. She is in obvious respiratory distress. Was immediately placed on BiPAP. Blood pressures are soft but patient is not hypertensive at this time. She did respond the BiPAP. Broad differential for t he patient. This could be infectious in nature, or cardiopulmonary includes COPD versus heart failure. She was given a breathing treatment. We will continue his breathing treatments. We will obtain broad workup including cultures, cardiopulmonary labs, urine culture. We will replace her Rey sullivanamara. She was in agreement this plan. Patient was evaluated in trauma bay 1. Chest x-ray was obtained initially, there was a poor film. Difficult to say as interpreted by me if there is signs of congestive heart failure. Does appear to have a chronically elevated right diaphragm. Poor inspiratory film. We'll hold IV fluids at this time and monitor blood pressures closely. 2 large-bore IVs were placed. By the time I sat down to place orders, patient's labs did return. At this time the patient's blood pressure did decrease and she became hypotensive. CBC was remarkable for a leukocytosis. Therefore patient met sepsis criteria at this time. This was at 11:40 AM. Blood cultures were already sent. Lactic acid is pending. She was started on broad-spectrum antibiotics vancomycin and cefepime. We will not hydrate the patient with 30 mL per KG IV fluids as she does have a question of history of congestive heart failure with a questionable chest x-ray. We will slowly fluid hydrate the patient. I did speak with the patient's family members at this time, if they present at bedside. They did not start the patient's antibiotics as they initially did cause the patient to have diarrhea. Says she has been noncompliant with her antibiotics at home for the last few days since diagnosed with a urinary tract infection. This is likely the cause of her current symptoms. Blood catheter was replaced. I did discuss with him CODE STATUS, and the patient had previously told family members that she did not want to be placed on life support. Discussed with patient's (Dmitri), son (Joey), and daughter (Meli) who discussed patient's desire to no be on life support, no intubation, no CPR. Patient will be made DNR/DNI. No code. Family okay'd use of central line and vasopressor medications. Patient did initially respond to IV fluids but became hypotensive again. She received a total of 1500 mL IV fluids was started on a maintenance drip. Labs did show that the patient is a low BNP of 29 but with her initial respiratory distress with history of heart failure and initial chest x-ray, we will maintain this maintenance drip at this time. Laboratory studies were also remarkable for an AK I with an elevated BUN of 85 and creatinine of 2.37. Mildly elevated AST and ALT of 121 and 48. Urinalysis is remarkable for an acute urinary tract infection. UDS is positive for tricyclics as well as benzos. Serum alcohol level is undetected. Covid, flu, RSV are negative. EKG showed no signs of acute ischemia. Blood cultures are pending. CT brain revealed no acute intracranial process. I did also obtain a CT chest without contrast due to kidney function which showed compressive atelectasis and chronic elevation of the right hemidiaphragm. ABG was obtained and showed mild hypercapnia 52, with a slight respiratory acidosis. Oxygenation is adequate. Patient was started on low-dose Levophed through peripheral IV as I placed a left IJ central line. Patient tolerated the procedure well. Post procedure chest x-ray showed central line in place. Levophed will be started on the central line. At this time, I discussed the results of patient's family. They understand that she is in septic shock likely secondary to urinary tract infection. Patient requires admission the hospital. She is DNR/DNI. She has a left IJ central line is on Levophed. She is on broad-spectrum vancomycin and cefepime. Blood cultures are pending. We'll continue BiPAP therapy. Patient remains saturating well on BiPAP with stable blood pressures on vasopressors. We'll continue close monitoring. I did speak with Dr. Josue the admitting physician who accepted the patient. I also consulted Dr. Zarate of critical care who accepted the patient to the ICU. She was admitted in serious condition. - Lab Data Result diagrams: 04/02/22 11:22 04/02/22 12:13 Lab Results 04/02/22 04/02/22 04/02/22 Range/Units 11:19 11:19 11:22 WBC 19.8 H (3.8-10.6) k/uL RBC 4.54 (3.80-5.40) m/uL Hgb 13.2 (11.4-16.0) gm/dL Hct 41.3 (34.0-46.0) % MCV 90.9 (80.0-100.0) fL MCH 29.1 (25.0-35.0) pg MCHC 32.0 (31.0-37.0) g/dL RDW 14.7 (11.5-15.5) % Plt Count 190 (150-450) k/uL MPV 9.8 Neutrophils % 80 % Lymphocytes % 10 % Monocytes % 4 % Eosinophils % 4 % Basophils % 1 % Neutrophils # 15.9 H (1.3-7.7) k/uL Lymphocytes # 2.0 (1.0-4.8) k/uL Monocytes # 0.9 (0-1.0) k/uL Eosinophils # 0.8 H (0-0.7) k/uL Basophils # 0.1 (0-0.2) k/uL Hypochromasia Slight PT (9.0-12.0) sec INR (<1.2) APTT (22.0-30.0) sec Sample Site ABG pH (7.35-7.45) ABG pCO2 (35-45) mmHg ABG pO2 (83-108) mmHg ABG HCO3 (21-25) mmol/L ABG Total CO2 (19-24) mmol/L ABG O2 Saturation (94-97) % ABG Base Excess mmol/L Omega Test FiO2 % Sodium (137-145) mmol/L Potassium (3.5-5.1) mmol/L Chloride (98-107) mmol/L Carbon Dioxide (22-30) mmol/L Anion Gap mmol/L BUN (7-17) mg/dL Creatinine (0.52-1.04) mg/dL Est GFR (CKD-EPI)AfAm (>60 ml/min/1.73 sqM) Est GFR (CKD-EPI)NonAf (>60 ml/min/1.73 sqM) Glucose (74-99) mg/dL Plasma Lactic Acid Pelon (0.7-2.0) mmol/L Calcium (8.4-10.2) mg/dL Total Bilirubin (0.2-1.3) mg/dL AST (14-36) U/L ALT (4-34) U/L Alkaline Phosphatase (38-126) U/L Ammonia <9 (<30) umol/L Troponin I (0.000-0.034) ng/mL NT-Pro-B Natriuret Pep 29 pg/mL Total Protein (6.3-8.2) g/dL Albumin (3.5-5.0) g/dL Urine Color Urine Appearance (Clear) Urine pH (5.0-8.0) Ur Specific [place] (1.001-1.035) Urine Protein (Negative) Urine Glucose (UA) (Negative) Urine Ketones (Negative) Urine Blood (Negative) Urine Nitrite (Negative) Urine Bilirubin (Negative) Urine Urobilinogen (<2.0) mg/dL Ur Leukocyte Esterase (Negative) Urine RBC (0-5) /hpf Urine WBC (0-5) /hpf Urine WBC Clumps (None) /hpf Ur Squamous Epith Cells (0-4) /hpf Amorphous Sediment (None) /hpf Urine Bacteria (None) /hpf Urine Mucus (None) /hpf Urine Opiates Screen (NotDetected) Ur Oxycodone Screen (NotDetected) Urine Methadone Screen (NotDetected) Ur Propoxyphene Screen (NotDetected) Ur Barbiturates Screen (NotDetected) U Tricyclic Antidepress (NotDetected) Ur Phencyclidine Scrn (NotDetected) Ur Amphetamines Screen (NotDetected) U Methamphetamines Scrn (NotDetected) U Benzodiazepines Scrn (NotDetected) Urine Cocaine Screen (NotDetected) U Marijuana (THC) Screen (NotDetected) Serum Alcohol mg/dL Influenza Type A (PCR) (Not Detectd) Influenza Type B (PCR) (Not Detectd) RSV (PCR) (Not Detectd) SARS-CoV-2 (PCR) (Not Detectd) 04/02/22 04/02/22 04/02/22 Range/Units 11: 11: 11:22 WBC (3.8-10.6) k/uL RBC (3.80-5.40) m/uL Hgb (11.4-16.0) gm/dL Hct (34.0-46.0) % MCV (80.0-100.0) fL MCH (25.0-35.0) pg MCHC (31.0-37.0) g/dL RDW (11.5-15.5) % Plt Count (150-450) k/uL MPV Neutrophils % % Lymphocytes % % Monocytes % % Eosinophils % % Basophils % % Neutrophils # (1.3-7.7) k/uL Lymphocytes # (1.0-4.8) k/uL Monocytes # (0-1.0) k/uL Eosinophils # (0-0.7) k/uL Basophils # (0-0.2) k/uL Hypochromasia PT 10.5 (9.0-12.0) sec INR 1.0 (<1.2) APTT 17.9 L (22.0-30.0) sec Sample Site ABG pH (7.35-7.45) ABG pCO2 (35-45) mmHg ABG pO2 (83-108) mmHg ABG HCO3 (21-25) mmol/L ABG Total CO2 (19-24) mmol/L ABG O2 Saturation (94-97) % ABG Base Excess mmol/L Omega Test FiO2 % Sodium 139 (137-145) mmol/L Potassium 6.1 H* (3.5-5.1) mmol/L Chloride 98 (98-107) mmol/L Carbon Dioxide 24 (22-30) mmol/L Anion Gap 17 mmol/L BUN 85 H (7-17) mg/dL Creatinine 2.37 H (0.52-1.04) mg/dL Est GFR (CKD-EPI)AfAm 24 (>60 ml/min/1.73 sqM) Est GFR (CKD-EPI)NonAf 21 (>60 ml/min/1.73 sqM) Glucose 99 (74-99) mg/dL Plasma Lactic Acid Pelon (0.7-2.0) mmol/L Calcium 9.0 (8.4-10.2) mg/dL Total Bilirubin 1.0 (0.2-1.3) mg/dL AST 121 H (14-36) U/L ALT 48 H (4-34) U/L Alkaline Phosphatase 92 (38-126) U/L Ammonia (<30) umol/L Troponin I 0.012 (0.000-0.034) ng/mL NT-Pro-B Natriuret Pep pg/mL Total Protein 7.4 (6.3-8.2) g/dL Albumin 4.1 (3.5-5.0) g/dL Urine Color Urine Appearance (Clear) Urine pH (5.0-8.0) Ur Specific [place] (1.001-1.035) Urine Protein (Negative) Urine Glucose (UA) (Negative) Urine Ketones (Negative) Urine Blood (Negative) Urine Nitrite (Negative) Urine Bilirubin (Negative) Urine Urobilinogen (<2.0) mg/dL Ur Leukocyte Esterase (Negative) Urine RBC (0-5) /hpf Urine WBC (0-5) /hpf Urine WBC Clumps (None) /hpf Ur Squamous Epith Cells (0-4) /hpf Amorphous Sediment (None) /hpf Urine Bacteria (None) /hpf Urine Mucus (None) /hpf Urine Opiates Screen (NotDetected) Ur Oxycodone Screen (NotDetected) Urine Methadone Screen (NotDetected) Ur Propoxyphene Screen (NotDetected) Ur Barbiturates Screen (NotDetected) U Tricyclic Antidepress (NotDetected) Ur Phencyclidine Scrn (NotDetected) Ur Amphetamines Screen (NotDetected) U Methamphetamines Scrn (NotDetected) U Benzodiazepines Scrn (NotDetected) Urine Cocaine Screen (NotDetected) U Marijuana (THC) Screen (NotDetected) Serum Alcohol <10 mg/dL Influenza Type A (PCR) (Not Detectd) Influenza Type B (PCR) (Not Detectd) RSV (PCR) (Not Detectd) SARS-CoV-2 (PCR) (Not Detectd) 04/02/22 04/02/22 04/02/22 Range/Units 11:26 12:04 12:13 WBC (3.8-10.6) k/uL RBC (3.80-5.40) m/uL Hgb (11.4-16.0) gm/dL Hct (34.0-46.0) % MCV (80.0-100.0) fL MCH (25.0-35.0) pg MCHC (31.0-37.0) g/dL RDW (11.5-15.5) % Plt Count (150-450) k/uL MPV Neutrophils % % Lymphocytes % % Monocytes % % Eosinophils % % Basophils % % Neutrophils # (1.3-7.7) k/uL Lymphocytes # (1.0-4.8) k/uL Monocytes # (0-1.0) k/uL Eosinophils # (0-0.7) k/uL Basophils # (0-0.2) k/uL Hypochromasia PT (9.0-12.0) sec INR (<1.2) APTT (22.0-30.0) sec Sample Site lrad ABG pH 7.33 L (7.35-7.45) ABG pCO2 52 H (35-45) mmHg ABG pO2 91 (83-108) mmHg ABG HCO3 27 H (21-25) mmol/L ABG Total CO2 28 H (19-24) mmol/L ABG O2 Saturation 97.0 (94-97) % ABG Base Excess 0.8 mmol/L Omega Test Yes FiO2 50 % Sodium (137-145) mmol/L Potassium 4.6 (3.5-5.1) mmol/L Chloride (98-107) mmol/L Carbon Dioxide (22-30) mmol/L Anion Gap mmol/L BUN (7-17) mg/dL Creatinine (0.52-1.04) mg/dL Est GFR (CKD-EPI)AfAm (>60 ml/min/1.73 sqM) Est GFR (CKD-EPI)NonAf (>60 ml/min/1.73 sqM) Glucose (74-99) mg/dL Plasma Lactic Acid Pelon (0.7-2.0) mmol/L Calcium (8.4-10.2) mg/dL Total Bilirubin (0.2-1.3) mg/dL AST (14-36) U/L ALT (4-34) U/L Alkaline Phosphatase (38-126) U/L Ammonia (<30) umol/L Troponin I (0.000-0.034) ng/mL NT-Pro-B Natriuret Pep pg/mL Total Protein (6.3-8.2) g/dL Albumin (3.5-5.0) g/dL Urine Color Urine Appearance (Clear) Urine pH (5.0-8.0) Ur Specific [place] (1.001-1.035) Urine Protein (Negative) Urine Glucose (UA) (Negative) Urine Ketones (Negative) Urine Blood (Negative) Urine Nitrite (Negative) Urine Bilirubin (Negative) Urine Urobilinogen (<2.0) mg/dL Ur Leukocyte Esterase (Negative) Urine RBC (0-5) /hpf Urine WBC (0-5) /hpf Urine WBC Clumps (None) /hpf Ur Squamous Epith Cells (0-4) /hpf Amorphous Sediment (None) /hpf Urine Bacteria (None) /hpf Urine Mucus (None) /hpf Urine Opiates Screen (NotDetected) Ur Oxycodone Screen (NotDetected) Urine Methadone Screen (NotDetected) Ur Propoxyphene Screen (NotDetected) Ur Barbiturates Screen (NotDetected) U Tricyclic Antidepress (NotDetected) Ur Phencyclidine Scrn (NotDetected) Ur Amphetamines Screen (NotDetected) U Methamphetamines Scrn (NotDetected) U Benzodiazepines Scrn (NotDetected) Urine Cocaine Screen (NotDetected) U Marijuana (THC) Screen (NotDetected) Serum Alcohol mg/dL Influenza Type A (PCR) Not Detected (Not Detectd) Influenza Type B (PCR) Not Detected (Not Detectd) RSV (PCR) Not Detected (Not Detectd) SARS-CoV-2 (PCR) Not Detected (Not Detectd) 04/02/22 04/02/22 04/02/22 Range/Units 12:25 12:25 14:09 WBC (3.8-10.6) k/uL RBC (3.80-5.40) m/uL Hgb (11.4-16.0) gm/dL Hct (34.0-46.0) % MCV (80.0-100.0) fL MCH (25.0-35.0) pg MCHC (31.0-37.0) g/dL RDW (11.5-15.5) % Plt Count (150-450) k/uL MPV Neutrophils % % Lymphocytes % % Monocytes % % Eosinophils % % Basophils % % Neutrophils # (1.3-7.7) k/uL Lymphocytes # (1.0-4.8) k/uL Monocytes # (0-1.0) k/uL Eosinophils # (0-0.7) k/uL Basophils # (0-0.2) k/uL Hypochromasia PT (9.0-12.0) sec INR (<1.2) APTT (22.0-30.0) sec Sample Site ABG pH (7.35-7.45) ABG pCO2 (35-45) mmHg ABG pO2 (83-108) mmHg ABG HCO3 (21-25) mmol/L ABG Total CO2 (19-24) mmol/L ABG O2 Saturation (94-97) % ABG Base Excess mmol/L Omega Test FiO2 % Sodium (137-145) mmol/L Potassium (3.5-5.1) mmol/L Chloride (98-107) mmol/L Carbon Dioxide (22-30) mmol/L Anion Gap mmol/L BUN (7-17) mg/dL Creatinine (0.52-1.04) mg/dL Est GFR (CKD-EPI)AfAm (>60 ml/min/1.73 sqM) Est GFR (CKD-EPI)NonAf (>60 ml/min/1.73 sqM) Glucose (74-99) mg/dL Plasma Lactic Acid Pelon 0.9 (0.7-2.0) mmol/L Calcium (8.4-10.2) mg/dL Total Bilirubin (0.2-1.3) mg/dL AST (14-36) U/L ALT (4-34) U/L Alkaline Phosphatase (38-126) U/L Ammonia (<30) umol/L Troponin I (0.000-0.034) ng/mL NT-Pro-B Natriuret Pep pg/mL Total Protein (6.3-8.2) g/dL Albumin (3.5-5.0) g/dL Urine Color Dark Brown Urine Appearance Turbid H (Clear) Urine pH 5.5 (5.0-8.0) Ur Specific [place] 1.019 (1.001-1.035) Urine Protein 2+ H (Negative) Urine Glucose (UA) Negative (Negative) Urine Ketones Negative (Negative) Urine Blood Small H (Negative) Urine Nitrite Negative (Negative) Urine Bilirubin Negative (Negative) Urine Urobilinogen <2.0 (<2.0) mg/dL Ur Leukocyte Esterase Large H (Negative) Urine RBC 172 H (0-5) /hpf Urine WBC >182 H (0-5) /hpf Urine WBC Clumps Many H (None) /hpf Ur Squamous Epith Cells 11 H (0-4) /hpf Amorphous Sediment Rare H (None) /hpf Urine Bacteria Many H (None) /hpf Urine Mucus Few H (None) /hpf Urine Opiates Screen Not Detected (NotDetected) Ur Oxycodone Screen Not Detected (NotDetected) Urine Methadone Screen Not Detected (NotDetected) Ur Propoxyphene Screen Not Detected (NotDetected) Ur Barbiturates Screen Not Detected (NotDetected) U Tricyclic Antidepress Detected H (NotDetected) Ur Phencyclidine Scrn Not Detected (NotDetected) Ur Amphetamines Screen Not Detected (NotDetected) U Methamphetamines Scrn Not Detected (NotDetected) U Benzodiazepines Scrn Detected H (NotDetected) Urine Cocaine Screen Not Detected (NotDetected) U Marijuana (THC) Screen Not Detected (NotDetected) Serum Alcohol mg/dL Influenza Type A (PCR) (Not Detectd) Influenza Type B (PCR) (Not Detectd) RSV (PCR) (Not Detectd) SARS-CoV-2 (PCR) (Not Detectd) - EKG Data -: EKG Interpreted by Me EKG Comments: 12-lead Electrocardiogram Interpretation Note EKG was reviewed and interpreted by myself. 12-lead ECG performed at 1117 is interpreted by me as revealing normal sinus rhythm at a rate of 78 beats per minute. [place] is normal. ME interval is 172 ms, QRS duration is 102 ms, QTc is 408 ms.. There were no ST or T wave abnormalities to suggest myocardial ischemia or injury. R wave progression across the precordium was satisfactory. By my interpretation this EKG is non-diagnostic for acute ischemia. Relatively unchanged when compared with prior EKGs from January 2021. Critical Care Time Critical Care Time: Yes Total Critical Care Time: 35 Critical Care Time: Upon my evaluation, this patient had a high probability of imminent or life- threatening deterioration due to septic shock, UTI, AK I, which required my direct attention, intervention, and personal management. I have personally provided 35 minutes of critical care time exclusive of time spent on separately billable procedures. Time includes review of laboratory data, radiology results, discussion with consultants, and monitoring for potential decompensation. Interventions were performed as documented in my note. Disposition Clinical Impression: Septic shock, UTI (urinary tract infection), APOLONIA (acute kidney injury), Altered mental status, Debility, Hypoxia Disposition: ADMITTED IP TO THIS HOSP Condition: Serious Time of Disposition: 14:15
[2022-04-02 12:41] LABS: Amorphous Sediment,Urine Rare /hpf; Appearance,Urine Turbid (Clear); Bacteria,Urine Many /hpf; Bilirubin,Urine Negative (Negative); Blood,Urine Small (Negative); Color,Urine Dark Brown; Glucose,Urine (UA) Negative (Negative); Ketones,Urine Negative (Negative); Leukocyte Esterase,Urine Large (Negative); Mucus,Urine Few /hpf; Nitrite,Urine Negative (Negative); PH, Urine 5.5 (5.0-8.0); Protein,Urine 2+ (Negative); RBC,Urine 172 /hpf (0-5); Squamous Epithelial Cell,Urine 11 /hpf (0-4); Urobilinogen,Urine <2.0 mg/dL (<2.0); WBC,Urine >182 /hpf (0-5)
[2022-04-02 12:44] LABS: Specific Gravity,Urine 1.019 (1.001-1.035)
[2022-04-02 12:48] LABS: Amphetamine Screen,Urine Not Detected (NotDetected); Barbiturate Screen,Urine Not Detected (NotDetected); Benzodiazepines Screen,Urine Detected (NotDetected); Cocaine Screen,Urine Not Detected (NotDetected); Methadone Screen, Urine Not Detected (NotDetected); Opiate Screen,Urine Not Detected (NotDetected); Oxycodone Screen, Urine Not Detected (NotDetected); Phencyclidine Screen,Urine Not Detected (NotDetected); Tricyclic Antidepressant,Urine Detected (NotDetected); Urn Cannabinoid Scrn Not Detected (NotDetected)
--- NOTE | 2022-04-02 13:16 | CT ---
EXAMINATION TYPE: CT brain wo con DATE OF EXAM: 04/02/2022 COMPARISON: None HISTORY: Altered mental status CT DLP: 1202.[address] of the brain was performed. The ventricles, basal cisterns and sulci overlying the cerebral convexities demonstrate mild enlargem ent. There is no evidence for intracranial hemorrhage or sulcal effacement. There is decreased attenuation about the periventricular white matter and deep white matter of both c erebral hemispheres, compatible with chronic small vessel ischemia. Differential diagnosis does inclu de demyelination. No mass effects are seen.No midline shift. Osseous calvarium is intact. If symptoms persist consider MRI. IMPRESSION: 1. Age related atrophic and chronic small vessel ischemic change without acute intracranial process s een at this time.
--- NOTE | 2022-04-02 13:19 | CT ---
EXAMINATION TYPE: CT chest wo con DATE OF EXAM: 04/02/2022 COMPARISON: 03/18/2021 HISTORY: Dyspnea CT DLP: 1531.[address] of the chest was performed with lung and mediastinal window settings submitted. The la ck of contrast limits evaluation of the vascular, mediastinal and parenchymal structures including th e upper abdomen. LUNGS: The lungs are clear and free of infiltrate. Mild basilar compressive atelectasis. Continued el evation right hemidiaphragm. No pulmonary nodule or mass is detected. No pleural effusion. No CT ev idence of interstitial lung disease. MEDIASTINUM/STEPHANIE: Thoracic aorta is of normal caliber with limited evaluation given lack of contrast . The heart is not enlarged. No evidence for mediastinal mass. No lymph nodes greater than 1cm. UPPER ABDOMEN: Persistent hepatomegaly and underlying hepatic steatosis. OTHER: No significant other abnormality. IMPRESSION: 1. Mild basilar compressive atelectasis and/or parenchymal scarring. Chronic elevation right hemidia phragm.
--- NOTE | 2022-04-02 14:18 | XR ---
EXAMINATION TYPE: XR chest 1V portable DATE OF EXAM: 04/02/2022 HISTORY: Shortness of breath. COMPARISON: 04/02/22 TECHNIQUE: Single view of the chest is submitted. FINDINGS: Demonstrated are scattered senescent parenchymal change. Patchy infiltrate right suprahilar region may reflect developing infiltrate. Correlate clinically. The heart is stable. Hilar and mediastinal structures are within normal limits. Degenerative changes are seen of the dorsal spine. IMPRESSION: 1. Patchy infiltrate right suprahilar region may reflect developing infiltrate. Correlate clinically .
[2022-04-02] MEDS ORDERED: NALOXONE 0.4 MG/ML 1 ML VIAL IV PRN (14:51)
[2022-04-02] MEDS: CEFEPIME 1 GM in SODIUM CHLORIDE 0.9% 50 ML IVPB SCH (15:43)
[2022-04-02] MEDS: methylPREDNISolone SOD SUCCI 40 MG/ML 1 ML VIAL IV SCH ×2 (15:43→21:38)
[2022-04-02] MEDS: IPRATROPIUM-ALBUTEROL 3 ML NEB INHALATION SCH ×3 (15:48→23:31)
--- NOTE | 2022-04-02 15:54 | US ---
EXAMINATION TYPE: US renals and bladder DATE OF EXAM: 04/02/2022 COMPARISON: NONE CLINICAL HISTORY: UTI, septic shock. UTI, septic shock EXAM MEASUREMENTS: Right Kidney: 12.7 x 6.7 x 4.9 cm Left Kidney: 12.5 x 6.6 x 5.8 cm Right Kidney: Appears slightly enlarged. Hypoechoic connective area seen upper pole, possible dilated collecting system: 3.2 x 3.2 x 0.5 cm. Hypoechoic area seen laterally: 2.1 x 2.2 x 2.0 cm Left Kidney: Appears slightly enlarged. Very limited visibility. Bladder: Not seen Bilateral Jets seen: No IMPRESSION: 1. Mildly prominent right-sided renal collecting system without rae hydronephrosis. 2. Probable column of Austyn right mid kidney. This could be confirmed with CT.
--- NOTE | 2022-04-02 15:55 | P.CNPUL ---
History of Present Illness Consult date: 04/02/22 Requesting physician: Konrad Josue Reason for consult: hypoxemia, other (Critical care management) Chief complaint: Altered mental status History of present illness: This is a 66-year-old female with a known history of morbid obesity, bedridden, asthma, viral myalgia, hypertension, anxiety/depression, lifelong nonsmoker. On 03/27/2022 she was here in the emergency department with complaints of symptoms of urinary tract infection. She was found to have E. coli at that time and was treated with antibiotics. Currently the patient did not take her antibiotics due to issues with diarrhea. She was brought back into the emergency room earlier today with altered mental status respiratory distress and low blood pressure. She had been unable to take anything by mouth according to her family members are present at the bedside. White count 19.8. Hemoglobin 13.2. Sodium 139. Potassium 4.6. Chloride 98. Bicarb 24. BUN 85. Creatinine 2.37. AST 121. ALT 48. ProBNP 29. Urinalysis revealed dark brown turbid urine with large leukocyte esterase, greater than 182 WBCs. Many WBC clumps. Many bacteria. Urine drug screen was positive for tricyclic antidepressants and benzodiazepines. Computed tomography scan of the brain revealed age-related atrophic and chronic small vessel ischemic changes without acute intracranial process. Computed tomography scan of the chest revealed lungs are clear and free of infiltrate. Some mild basilar compressive atelectasis. Chronic elevati on of the right hemidiaphragm. No pulmonary nodules or masses. CoVID screen was negative. RSV screen negative. Influenza screen negative. Serum alcohol less than 10. Arterial blood gases on 50% FiO2 revealed a PaO2 of 91, pCO2 52 and a pH of 7.33. She was placed on BiPAP 12/6 and 50% FiO2. She is seen today in consultation in the emergency department. She initially was unarousable however she did start to respond to painful stimuli. She is opening her eyes. She is obeying simple commands. He's been initiated on cefepime and vancomycin. She's received 2 L of fluid resuscitation. Normal saline at 100 ML's per hour. She is requiring norepinephrine at 0.1 mcg/kg/m. Review of Systems ROS unobtainable: due to mental status Past Medical History Past Medical History: Fibromyalgia, Hypertension Additional Past Medical History / Comment(s): chronic bronchitis, muscle spasms, UTI History of Any Multi-Drug Resistant Organisms: None Reported Past Surgical History: Hysterectomy, Orthopedic Surgery Past Psychological History: Anxiety, Depression Smoking Status: Never smoker Past Alcohol Use History: None Reported Past Drug Use History: None Reported Medications and Allergies Home Medications Medication Instructions Recorded Confirmed Type Amitriptyline HCl [Elavil] 50 - 100 mg PO HS 02/18/21 04/02/22 History Baclofen [Lioresal] 20 mg PO TID 02/18/21 04/02/22 History Diclofenac Sodium [Voltaren] 75 mg PO BID 02/18/21 04/02/22 History Furosemide [Lasix] 40 mg PO BID PRN 02/18/21 04/02/22 History Montelukast [Singulair] 10 mg PO DAILY 02/18/21 04/02/22 History Omeprazole 40 mg PO DAILY 02/18/21 04/02/22 History Pregabalin [Lyrica] 150 mg PO TID 02/18/21 04/02/22 History lisinopriL 30 mg PO DAILY 02/18/21 04/02/22 History predniSONE 10 mg PO DAILY PRN 02/18/21 04/02/22 History Cephalexin [Keflex] 500 mg PO Q8HR #21 cap 03/27/22 04/02/22 Rx Cyclobenzaprine [Flexeril] 10 mg PO TID PRN 03/27/22 04/02/22 History FLUoxetine HCL 40 mg PO DAILY 03/27/22 04/02/22 History Naproxen [EC-Naprosyn] 500 mg PO BID PRN 03/27/22 04/02/22 History hydrOXYzine HCL [Atarax] 25 mg PO TID PRN 03/27/22 04/02/22 History Allergies Allergy/AdvReac Type Severity Reaction Status Date / Time Penicillins Allergy Rash/Hives Verified 04/02/22 15:12 sulfamethoxazole Allergy Rash/Hives Verified 04/02/22 15:12 [From Bactrim] trimethoprim [From Bactrim] Allergy Rash/Hives Verified 04/02/22 15:12 Physical Exam Vitals: Vital Signs Temp Pulse Resp BP Pulse Ox FiO2 04/02/22 14:21 64 12 142/82 100 04/02/22 14:11 74 13 99/44 100 04/02/22 13:04 75 16 87/50 04/02/22 11:25 84 04/02/22 11:19 50 04/02/22 11:17 90 04/02/22 11:14 50 04/02/22 11:09 97.5 F L 86 24 100/76 88 L Intake and Output 04/02/22 04/02/22 04/02/22 06:59 14:59 22:59 Intake Total 67.745 Balance 67.745 Intake: Intake, IV Titration 67.745 Amount Norepinephrine 4 mg In 67.745 Sodium Chloride 0.9% 250 ml @ 0.03 MCG/KG/MIN 20. 738 mls/hr IV .[id number] [facility] Rx#:[id number] Other: Weight 181.437 kg GENERAL EXAM: Arousable, morbidly obese 66-year-old female, on BiPAP / and 50% FiO2, fairly comfortable in no apparent distress. HEAD: Normocephalic. EYES: Normal reaction of pupils, equal size. NOSE: Clear with pink turbinates. THROAT: No erythema or exudates. NECK: No masses, no JVD. CHEST: No chest wall deformity. LUNGS: Equal air entry with no crackles, wheeze, rhonchi or dullness. CVS: S1 and S2 normal with no audible murmur, regular rhythm. ABDOMEN: Morbidly obese. Unable to appreciate hepatosplenomegaly, normal bowel sounds, no guarding or rigidity. SPINE: No scoliosis or deformity SKIN: No rashes CENTRAL NERVOUS SYSTEM: No focal deficits, tone is normal in all 4 extremities. EXTREMITIES: There is no peripheral edema. No clubbing, no cyanosis. Peripheral pulses are intact. Results - Laboratory Findings CBC and BMP: 04/02/22 11:22 04/02/22 12:13 ABG ABG pH 7.33 (7.35-7.45) L 04/02/22 12:04 ABG pCO2 52 mmHg (35-45) H 04/02/22 12:04 ABG pO2 91 mmHg (83-108) 04/02/22 12:04 ABG O2 Saturation 97.0 % (94-97) 04/02/22 12:04 PT/INR, D-dimer PT 10.5 sec (9.0-12.0) 04/02/22 11: INR 1.0 (<1.2) 04/02/22 11:22 Abnormal lab findings: Abnormal Labs 04/02/22 04/02/22 04/02/22 11: 11: 11:22 WBC 19.8 H Neutrophils # 15.9 H Eosinophils # 0.8 H APTT 17.9 L ABG pH ABG pCO2 ABG HCO3 ABG Total CO2 Potassium 6.1 H* BUN 85 H Creatinine 2.37 H AST 121 H ALT 48 H Urine Appearance Urine Protein Urine Blood Ur Leukocyte Esterase Urine RBC Urine WBC Urine WBC Clumps Ur Squamous Epith Cells Amorphous Sediment Urine Bacteria Urine Mucus U Tricyclic Antidepress U Benzodiazepines Scrn 04/02/22 04/02/22 04/02/22 12:04 12:25 12:25 WBC Neutrophils # Eosinophils # APTT ABG pH 7.33 L ABG pCO2 52 H ABG HCO3 27 H ABG Total CO2 28 H Potassium BUN Creatinine AST ALT Urine Appearance Turbid H Urine Protein 2+ H Urine Blood Small H Ur Leukocyte Esterase Large H Urine RBC 172 H Urine WBC >182 H Urine WBC Clumps Many H Ur Squamous Epith Cells 11 H Amorphous Sediment Rare H Urine Bacteria Many H Urine Mucus Few H U Tricyclic Antidepress Detected H U Benzodiazepines Scrn Detected H - Diagnostic Findings Chest x-ray: image reviewed Assessment and Plan Assessment: Altered mental status secondary to sepsis secondary to urinary tract infection Acute hypotension with septic shock secondary to urinary tract infection Acute hypoxemic respiratory failure secondary to above, currently on BiPAP 05/06 and 50% FiO2 Urinary tract infection secondary to E coli Acute renal failure secondary to above Leukocytosis secondary to above Morbid obesity with a BMI of 54.2 kg per metered squared Hypertension, history of Fibromyalgia History of anxiety/depression Gastroesophageal reflux disease Poor overall functional performance based on the above-mentioned multiple comorbidities, bedridden Plan: The patient was seen and evaluated Chest x-ray, CAT scan, medications and labs reviewed Continue vancomycin and cefepime for now Titrate the FiO2 as tolerated Transfer the patient to the intensive care unit for closer monitoring Continue DuoNeb inhalations and IV solu medrol The patient is a DO NOT RESUSCITATE/DO NOT INTUBATE CODE STATUS We will continue to follow and make further recommendations based on her clinical status I have personally seen and examined the patient, performed the documentation and the assessment and plan as written. Number of minutes spent on the visit: 20. Plan: This is a joint evaluation that was done with the SUPPORT CLERK. I saw the patient in the ED and I also spoke with family members. The patient has acute on chronic hypoxic and hyperacapneic respiratory failure and the patient has sepsis secondary to a UTI. Will keep the patient on Bipap and will continue the fluid resuscitation and the antibiotics for now and use pressors if needed. The patient is a DNR/DNI code status and the patient is going to be transferred to the ICU for further monitoring. There is an obvious mental status change and this is likely secondary to metabolic encephalopathy related to metabolic changes and sepsis. The patient is nonambulatory and very debilitated at baseline and the patient carries a poor prognosis in general. A tripple lumen cath was already inserted in the ED. Will continue to follow
[2022-04-02 18:30] LABS: Glucose,Whole Blood 124 mg/dL (70-110)
--- NOTE | 2022-04-02 19:59 | P.HPIM ---
History of Present Illness This is a pleasant 66 years old female with past medical history off Fibromyalgia, Hypertension, chronic bronchitis, muscle spasms, UTI,Anxiety, Depression Patient desires because of fall on her left hip area with left hip pain. Patient is poor historian . Case was discussed with and emergency room physician Dr. Flower. Patient was recently diagnosed with UTI and she was placed on antibiotics, Keflex is one of her home medication. However patient was refusing to take medi cation for her UTI because of concern for diarrhea. Today she presents because of altered mental status and patient is poor historian. Patient at baseline and is bedbound, she has vague history of CHF and COPD but that comes with septic picture, she was dyspneic at home and she was placed on BiPAP first in the emergency room . Family were at bedside and discussed with Dr. Flower the wishes for the patient to be DO NOT INTUBATE but they're okay to start pressors was started on small dose of pressors and blood pressure improved up to 142/82. She is currently saturating 100% on BiPAP. Patient is afebrile. She has evidence of leukocytosis with WBC 19.8. Rest of CBC is unremarkable. INR is normal. PH is low at 7.3. Potassium 4.6, creatinine up at 2.3 liver enzymes mildly elevated, troponin is negative. Urinalysis is suspicious for infection. Urine toxicology is positive for tricyclic antidepressants and benzodiazepines. Serum alcohol less than 10. Influenza, RSV and cov undetected.id urine culture from 03/[address] of the chest without contrast showing mild bibasilar compressive atelectasis and/or parenchymal scarring. Chronic elevation of the right hemidiaphragm. CT of the brain: No acute process. EKG: Normal sinus rhythm at [address]-T changes. Chest x-ray: Patchy infiltrate right suprahilar region may reflect developing infiltrate Patient was started on cefepime and IV vancomycin ER. Patient has multiple drug ALLERGIES she missed a dose of antibiotic Also she received normal saline. Review of Systems ROS unobtainable: due to mental status Past Medical History Past Medical History: Fibromyalgia, Hypertension Additional Past Medical History / Comment(s): chronic bronchitis, muscle spasms, UTI History of Any Multi-Drug Resistant Organisms: None Reported Past Surgical History: Hysterectomy, Orthopedic Surgery Past Psychological History: Anxiety, Depression Smoking Status: Never smoker Past Alcohol Use History: None Reported Past Drug Use History: None Reported Medications and Allergies Home Medications Medication Instructions Recorded Confirmed Type Amitriptyline HCl [Elavil] 50 - 100 mg PO HS 02/18/21 04/02/22 History Baclofen [Lioresal] 20 mg PO TID 02/18/21 04/02/22 History Diclofenac Sodium [Voltaren] 75 mg PO BID 02/18/21 04/02/22 History Furosemide [Lasix] 40 mg PO BID PRN 02/18/21 04/02/22 History Montelukast [Singulair] 10 mg PO DAILY 02/18/21 04/02/22 History Omeprazole 40 mg PO DAILY 02/18/21 04/02/22 History Pregabalin [Lyrica] 150 mg PO TID 02/18/21 04/02/22 History lisinopriL 30 mg PO DAILY 02/18/21 04/02/22 History predniSONE 10 mg PO DAILY PRN 02/18/21 04/02/22 History Cephalexin [Keflex] 500 mg PO Q8HR #21 cap 03/27/22 04/02/22 Rx Cyclobenzaprine [Flexeril] 10 mg PO TID PRN 03/27/22 04/02/22 History FLUoxetine HCL 40 mg PO DAILY 03/27/22 04/02/22 History Naproxen [EC-Naprosyn] 500 mg PO BID PRN 03/27/22 04/02/22 History hydrOXYzine HCL [Atarax] 25 mg PO TID PRN 03/27/22 04/02/22 History Allergies Allergy/AdvReac Type Severity Reaction Status Date / Time Penicillins Allergy Rash/Hives Verified 04/02/22 15:12 sulfamethoxazole Allergy Rash/Hives Verified 04/02/22 15:12 [From Bactrim] trimethoprim [From Bactrim] Allergy Rash/Hives Verified 04/02/22 15:12 Physical Exam Vitals: Vital Signs Temp Pulse Resp BP Pulse Ox FiO2 04/02/22 14:11 74 13 99/44 100 04/02/22 13:04 75 16 87/50 04/02/22 11:25 84 04/02/22 11:19 50 04/02/22 11:17 90 04/02/22 11:14 50 04/02/22 11:09 97.5 F L 86 24 100/76 88 L Intake and Output 04/01/22 04/02/22 04/02/22 22:59 06:59 14:59 Intake Total 67.745 Balance 67.745 Intake: Intake, IV Titration 67.745 Amount Norepinephrine 4 mg In 67.745 Sodium Chloride 0.9% 250 ml @ 0.03 MCG/KG/MIN 20. 738 mls/hr IV .[id number] [facility] Rx#:[id number] Other: Weight 181.437 kg --GENERAL: The patient is currently on BiPAP looks confused and cannot provide information, obese HEENT: Pupils are round and equally reacting to light. EOMI. No scleral icterus. No conjunctival pallor. Normocephalic, atraumatic. No pharyngeal erythema. No thyromegaly. CARDIOVASCULAR: S1 and S2 present. No murmurs, rubs, or gallops. PULMONARY: Chest is clear to auscultation, no wheezing or crackles. ABDOMEN: Soft, nontender, nondistended, normoactive bowel sounds. No palpable organomegaly. MUSCULOSKELETAL: No joint swelling or deformity. EXTREMITIES: No cyanosis, clubbing, or pedal edema. NEUROLOGICAL: Gross neurological examination did not reveal any focal deficits. SKIN: No rashes. no petechiae. Results CBC & Chem 7: 04/02/22 11:04/02/22 12:13 Labs: Abnormal Lab Results - Last 24 Hours (Table) 04/02/22 04/02/22 04/02/22 Range/Units 11: 11: 11: WBC 19.8 H (3.8-10.6) k/uL Neutrophils # 15.9 H (1.3-7.7) k/uL Eosinophils # 0.8 H (0-0.7) k/uL APTT 17.9 L (22.0-30.0) sec ABG pH (7.35-7.45) ABG pCO2 (35-45) mmHg ABG HCO3 (21-25) mmol/L ABG Total CO2 (19-24) mmol/L Potassium 6.1 H* (3.5-5.1) mmol/L BUN 85 H (7-17) mg/dL Creatinine 2.37 H (0.52-1.04) mg/dL AST 121 H (14-36) U/L ALT 48 H (4-34) U/L Urine Appearance (Clear) Urine Protein (Negative) Urine Blood (Negative) Ur Leukocyte Esterase (Negative) Urine RBC (0-5) /hpf Urine WBC (0-5) /hpf Urine WBC Clumps (None) /hpf Ur Squamous Epith Cells (0-4) /hpf Amorphous Sediment (None) /hpf Urine Bacteria (None) /hpf Urine Mucus (None) /hpf U Tricyclic Antidepress (NotDetected) U Benzodiazepines Scrn (NotDetected) 04/02/22 04/02/22 04/02/22 Range/Units 12:04 12:25 12:25 WBC (3.8-10.6) k/uL Neutrophils # (1.3-7.7) k/uL Eosinophils # (0-0.7) k/uL APTT (22.0-30.0) sec ABG pH 7.33 L (7.35-7.45) ABG pCO2 52 H (35-45) mmHg ABG HCO3 27 H (21-25) mmol/L ABG Total CO2 28 H (19-24) mmol/L Potassium (3.5-5.1) mmol/L BUN (7-17) mg/dL Creatinine (0.52-1.04) mg/dL AST (14-36) U/L ALT (4-34) U/L Urine Appearance Turbid H (Clear) Urine Protein 2+ H (Negative) Urine Blood Small H (Negative) Ur Leukocyte Esterase Large H (Negative) Urine RBC 172 H (0-5) /hpf Urine WBC >182 H (0-5) /hpf Urine WBC Clumps Many H (None) /hpf Ur Squamous Epith Cells 11 H (0-4) /hpf Amorphous Sediment Rare H (None) /hpf Urine Bacteria Many H (None) /hpf Urine Mucus Few H (None) /hpf U Tricyclic Antidepress Detected H (NotDetected) U Benzodiazepines Scrn Detected H (NotDetected) Assessment and Plan Assessment: Septic shock secondary to acute urinary tract infection Metabolic/toxic encephalopathy Acute coronary tract infection, culture from previous sample growing E. 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 Check renal ultrasound Labs and medication were reviewed.. Continue same treatment. Continue with symptomatic treatment. Resume home medication. Monitor labs and vitals. DVT and GI prophylaxis. Further recommendations as per clinical course of the patient DVT prophylaxis: Subcutaneous heparin GI Prophylaxis: Pepcid Prognosis is guarded
[2022-04-02] MEDS: HEPARIN SODIUM,PORCINE/PF 5,000 UNIT/0.5 ML SYRINGE SQ SCH (21:37)
[2022-04-02] MEDS: FAMOTIDINE 20 MG/2 ML VIAL IV SCH (21:38)
[2022-04-03] MEDS: NOREPINEPHRINE 4 MG in SODIUM CHLORIDE 0.9% 250 ML IV SCH ×4 (00:38→16:48)
[2022-04-03] MEDS: CEFEPIME 1 GM in SODIUM CHLORIDE 0.9% 50 ML IVPB SCH (01:53)
[2022-04-03] MEDS: IPRATROPIUM-ALBUTEROL 3 ML NEB INHALATION SCH ×5 (03:23→20:42)
[2022-04-03 07:09] LABS: Basophils % (A) 0 %; Eosinophils % (A) 0 %; HCT 40.7 % (34.0-46.0); HGB 12.7 gm/dL (11.4-16.0); Hypochromasia Moderate; Lymphocytes # (A) 0.6 k/uL (1.0-4.8); Lymphocytes % (A) 3 %; MCH 29.1 pg (25.0-35.0); MCHC 31.3 g/dL (31.0-37.0); MCV 92.9 fL (80.0-100.0); Mean Platelet Volume 9.4; Monocytes # (A) 0.7 k/uL (0-1.0); Monocytes % (A) 4 %; Neutrophils # (A) 15.5 k/uL (1.3-7.7); Neutrophils % (A) 92 %; Platelet Count 223 k/uL (150-450); RBC 4.38 m/uL (3.80-5.40); RDW 14.2 % (11.5-15.5); WBC 16.8 k/uL (3.8-10.6)
[2022-04-03 07:48] LABS: Albumin 3.8 g/dL (3.5-5.0); Total Bilirubin 0.5 mg/dL (0.2-1.3); Total Protein 6.9 g/dL (6.3-8.2)
[2022-04-03] MEDS: HEPARIN SODIUM,PORCINE/PF 5,000 UNIT/0.5 ML SYRINGE SQ SCH ×2 (09:25→21:22)
[2022-04-03] MEDS: FAMOTIDINE 20 MG/2 ML VIAL IV SCH ×2 (09:25→21:22)
[2022-04-03] MEDS: methylPREDNISolone SOD SUCCI 40 MG/ML 1 ML VIAL IV SCH ×2 (09:26→21:22)
--- NOTE | 2022-04-03 11:12 | P.PN ---
Subjective Progress Note Date: 04/03/22 Principal diagnosis: Sepsis. This is a 66-year-old female with a known history of morbid obesity, bedridden, asthma, viral myalgia, hypertension, anxiety/depression, lifelong nonsmoker. On 03/27/2022 she was here in the emergency department with complaints of symptoms of urinary tract infection. She was found to have E. coli at that time and was treated with antibiotics. Currently the patient did not take her antibiotics due to issues with diarrhea. She was brought back into the emergency room earlier today with altered mental status respiratory distress and low blood pressure. She had been unable to take anything by mouth according to her family members are present at the bedside. White count 19.8. Hemoglobin 13.2. Sodium 139. Potassium 4.6. Chloride 98. Bicarb 24. BUN 85. Creatinine 2.37. AST 121. ALT 48. ProBNP 29. Urinalysis revealed dark brown turbid urine with large leukocyte esterase, greater than 182 WBCs. Many WBC clumps. Many bacteria. Urine drug screen was positive for tricyclic antidepressants and benzodiazepines. Computed tomography scan of the brain revealed age-related atrophic and chronic small vessel ischemic changes without acute intracranial process. Computed tomography scan of the chest revealed lungs are clear and fr ee of infiltrate. Some mild basilar compressive atelectasis. Chronic elevation of the right hemidiaphragm. No pulmonary nodules or masses. CoVID screen was negative. RSV screen negative. Influenza screen negative. Serum alcohol less than 10. Arterial blood gases on 50% FiO2 revealed a PaO2 of 91, pCO2 52 and a pH of 7.33. She was placed on BiPAP 12/6 and 50% FiO2. She is seen today in consultation in the emergency department. She initially was unarousable however she did start to respond to painful stimuli. She is opening her eyes. She is obeying simple commands. He's been initiated on cefepime and vancomycin. She's received 2 L of fluid resuscitation. Normal saline at 100 ML's per hour. She is requiring norepinephrine at 0.1 mcg/kg/m. Progress note dated 04/03/2022. 66-year-old female seen today in room 260 2. seen by the critical care team yesterday. The patient was admitted on April 02, with a diagnosis of urinary tract infection, urosepsis, and septic encephalopathy. Currently, the patient is on BiPAP, settings of 12/6 and 50%. When not on BiPAP, she is receiving nasal O2 at 6 L. She remains on norepinephrine at 8 mcg/m. She's getting saline at 100 mL an hour. She was recently in the hospital with a urinary tract infection, and back on March 27, had Escherichia coli in the urine. Her blood cultures are showing gram-positive cocci. She remains on cefepime and vancomycin. She is a DO NOT RESUSCITATE patient. She is very lethargic and somnolent. White count 16.8, hemoglobin 12, hematocrit 40.7, and platelet count 223,000. Sodium 143, potassium 6, chlorides 105, CO2 25, anion gap 13, BUN 68, and creatinine 1.58. AST is 93 ALT is 48. Objective - Vital Signs Vital signs: Vital Signs Temp 98.3 F 04/03/22 08:00 Pulse 102 H 04/03/22 10:00 Resp 15 04/03/22 10:00 BP 91/54 04/03/22 10:00 Pulse Ox 94 L 04/03/22 10:00 FiO2 50 04/03/22 07:17 Intake & Output 04/02/22 04/03/22 04/03/22 18:59 06:59 18:59 Intake Total 381.148 9579 412.443 Output Total 1700 1805 100 Balance -1446.000 -351 312.443 Weight 181.437 kg 207.5 kg Intake: Intake, IV Titration 563.929 6754 412.443 Amount Norepinephrine 4 mg In 254.000 254 12.443 Sodium Chloride 0.9% 250 ml @ 0.03 MCG/KG/MIN 20. 738 mls/hr IV .[id number] [facility] Rx#:[id number] Sodium Chloride 0.9% 1, 1200 400 000 ml @ 100 mls/hr IV . Q10H [facility] Rx#:[id number] Output: Urine 1700 1805 100 Other: Voiding Method Indwelling Catheter Indwelling Catheter Indwelling Catheter - Exam No acute distress, lethargic, currently on 6 L of oxygen. HEENT examination is grossly unremarkable. Neck supple. Full range of motion. No adenopathy thyromegaly or neck vein distention. Cardiovascular examination reveals regular rhythm rate. S1-S2 normal. No S3 or S4. No discernible murmur noted. Heart sounds are distant. Heart rate 102 bpm. Lungs reveal scattered mild to moderate rhonchi. Breath sounds are equal bilaterally. No wheezes or crackles. 6 L saturation is between 93 and 95%. Abdomen obese, with bowel sounds. No masses or tenderness. Extremities are intact. No cyanosis clubbing or significant edema. Skin is without rash or lesion. Neurologic examination is difficult to assess. She is very somnolent and lethargic. - Labs CBC & Chem 7: 04/03/22 06:40 04/03/22 06:40 Labs: Abnormal Lab Results - Last 24 Hours (Table) 04/02/22 04/02/22 04/02/22 Range/Units 11: 11: 11: WBC 19.8 H (3.8-10.6) k/uL Neutrophils # 15.9 H (1.3-7.7) k/uL Lymphocytes # (1.0-4.8) k/uL Eosinophils # 0.8 H (0-0.7) k/uL APTT 17.9 L (22.0-30.0) sec ABG pH (7.35-7.45) ABG pCO2 (35-45) mmHg ABG HCO3 (21-25) mmol/L ABG Total CO2 (19-24) mmol/L Potassium 6.1 H* (3.5-5.1) mmol/L BUN 85 H (7-17) mg/dL Creatinine 2.37 H (0.52-1.04) mg/dL Glucose (74-99) mg/dL POC Glucose (mg/dL) (70-110) mg/dL AST 121 H (14-36) U/L ALT 48 H (4-34) U/L Urine Appearance (Clear) Urine Protein (Negative) Urine Blood (Negative) Ur Leukocyte Esterase (Negative) Urine RBC (0-5) /hpf Urine WBC (0-5) /hpf Urine WBC Clumps (None) /hpf Ur Squamous Epith Cells (0-4) /hpf Amorphous Sediment (None) /hpf Urine Bacteria (None) /hpf Urine Mucus (None) /hpf U Tricyclic Antidepress (NotDetected) U Benzodiazepines Scrn (NotDetected) 04/02/22 04/02/22 04/02/22 Range/Units 12:04 12:25 12:25 WBC (3.8-10.6) k/uL Neutrophils # (1.3-7.7) k/uL Lymphocytes # (1.0-4.8) k/uL Eosinophils # (0-0.7) k/uL APTT (22.0-30.0) sec ABG pH 7.33 L (7.35-7.45) ABG pCO2 52 H (35-45) mmHg ABG HCO3 27 H (21-25) mmol/L ABG Total CO2 28 H (19-24) mmol/L Potassium (3.5-5.1) mmol/L BUN (7-17) mg/dL Creatinine (0.52-1.04) mg/dL Glucose (74-99) mg/dL POC Glucose (mg/dL) (70-110) mg/dL AST (14-36) U/L ALT (4-34) U/L Urine Appearance Turbid H (Clear) Urine Protein 2+ H (Negative) Urine Blood Small H (Negative) Ur Leukocyte Esterase Large H (Negative) Urine RBC 172 H (0-5) /hpf Urine WBC >182 H (0-5) /hpf Urine WBC Clumps Many H (None) /hpf Ur Squamous Epith Cells 11 H (0-4) /hpf Amorphous Sediment Rare H (None) /hpf Urine Bacteria Many H (None) /hpf Urine Mucus Few H (None) /hpf U Tricyclic Antidepress Detected H (NotDetected) U Benzodiazepines Scrn Detected H (NotDetected) 04/02/22 04/03/22 04/03/22 Range/Units 18:28 06:40 06:40 WBC 16.8 H (3.8-10.6) k/uL Neutrophils # 15.5 H (1.3-7.7) k/uL Lymphocytes # 0.6 L (1.0-4.8) k/uL Eosinophils # (0-0.7) k/uL APTT (22.0-30.0) sec ABG pH (7.35-7.45) ABG pCO2 (35-45) mmHg ABG HCO3 (21-25) mmol/L ABG Total CO2 (19-24) mmol/L Potassium 6.0 H (3.5-5.1) mmol/L BUN 68 H (7-17) mg/dL Creatinine 1.58 H (0.52-1.04) mg/dL Glucose 124 H (74-99) mg/dL POC Glucose (mg/dL) 124 H (70-110) mg/dL AST 93 H (14-36) U/L ALT 48 H (4-34) U/L Urine Appearance (Clear) Urine Protein (Negative) Urine Blood (Negative) Ur Leukocyte Esterase (Negative) Urine RBC (0-5) /hpf Urine WBC (0-5) /hpf Urine WBC Clumps (None) /hpf Ur Squamous Epith Cells (0-4) /hpf Amorphous Sediment (None) /hpf Urine Bacteria (None) /hpf Urine Mucus (None) /hpf U Tricyclic Antidepress (NotDetected) U Benzodiazepines Scrn (NotDetected) Microbiology - Last 24 Hours (Table) 04/02/22 11:15 Blood Culture Gram Stain - Preliminary Blood 04/02/22 11:15 Blood Culture - Final Blood 04/02/22 12:25 Urine Culture - Preliminary Urine,Voided Assessment and Plan Assessment: Acute mental status changes, secondary to urinary tract infection and septic encephalopathy. Hypotension, secondary to sepsis and septic shock, from urinary tract infection. Acute hypoxemic respiratory failure. Recent episode of E. coli urinary tract infection. Acute renal failure. Morbid obesity. History of essential hypertension. History of fibromyalgia. History of anxiety/depression. History of gastroesophageal reflux disease. Plan: Plan dated 04/03/2022. The patient is currently on cefepime and vancomycin. Her primary blood cultures are showing gram-positive cocci. There yet to be identified. Back on March 27, the urine was positive for E. coli. Currently, the patient's on 6 L of oxygen. Also, at nighttime, she is on BiPAP, with settings of 12/6 and 50%. Unfortunately, she remains on norepinephrine at 8 mcg/m. She is getting saline at 100 mL an hour. Labs, x-rays, and medications are reviewed. Overall prognosis is poor. We'll continue to follow. Time with Patient: Greater than 30
[2022-04-03] MEDS: SODIUM CHLORIDE 0.9% 1,000 ML IV SCH (12:45)
[2022-04-03] MEDS ORDERED: VANCOMYCIN 2,500 MG in SODIUM CHLORIDE 0.9% 500 ML 500 ML IVPB SCH (14:00)
[2022-04-03] MEDS: CEFEPIME 2 GM in SODIUM CHLORIDE 0.9% 100 ML IVPB SCH (14:52)
[2022-04-04] MEDS: IPRATROPIUM-ALBUTEROL 3 ML NEB INHALATION SCH ×6 (00:17→20:23)
[2022-04-04] MEDS: SODIUM CHLORIDE 0.9% 1,000 ML IV SCH ×3 (01:25→18:26)
[2022-04-04] MEDS: CEFEPIME 2 GM in SODIUM CHLORIDE 0.9% 100 ML IVPB SCH ×2 (01:25→14:05)
--- NOTE | 2022-04-04 07:11 | XR ---
EXAMINATION TYPE: XR chest 1V portable DATE OF EXAM: 04/04/2022 5:44 AM COMPARISON: Chest radiograph from one day prior. TECHNIQUE: XR chest 1V portable Portable AP radiograph of the chest. CLINICAL INDICATION:Female, 66 years old with history of shortness of breath/on BiPAP; FINDINGS: Lungs/Pleura: There is no evidence of pleural effusion, focal consolidation, or pneumothorax. Pulmonary vascularity: Unremarkable. Heart/mediastinum: Cardiomediastinal silhouette is enlarged and stable. Musculoskeletal: No acute osseous pathology. Lines/Tubes: Left internal jugular central venous catheter with distal tip at the cavoatrial junction.d IMPRESSION: * Low lung lines with is cardiomegaly. * Appropriate placement of the left internal jugular central venous catheter.
[2022-04-04 07:53] LABS: Basophils % (A) 0 %; Eosinophils % (A) 0 %; HCT 40.3 % (34.0-46.0); HGB 12.6 gm/dL (11.4-16.0); Hypochromasia Slight; Lymphocytes # (A) 0.9 k/uL (1.0-4.8); Lymphocytes % (A) 6 %; MCHC 31.3 g/dL (31.0-37.0); MCV 92.6 fL (80.0-100.0); Mean Platelet Volume 9.5; Monocytes # (A) 0.6 k/uL (0-1.0); Monocytes % (A) 5 %; Neutrophils # (A) 11.8 k/uL (1.3-7.7); Neutrophils % (A) 88 %; Platelet Count 176 k/uL (150-450); RBC 4.36 m/uL (3.80-5.40); RDW 14.5 % (11.5-15.5); WBC 13.5 k/uL (3.8-10.6)
[2022-04-04 08:01] LABS: Calcium 9.3 mg/dL (8.4-10.2); Potassium 5.3 mmol/L (3.5-5.1)
[2022-04-04] MEDS ORDERED: VANCOMYCIN 2,500 MG in SODIUM CHLORIDE 0.9% 500 ML 500 ML IVPB SCH (09:00)
[2022-04-04] MEDS ORDERED: HALOPERIDOL LACTATE 5 MG/ML 1 ML VIAL IVP PRN (09:04)
[2022-04-04] MEDS: FAMOTIDINE 20 MG/2 ML VIAL IV SCH (10:54)
[2022-04-04] MEDS: HEPARIN SODIUM,PORCINE/PF 5,000 UNIT/0.5 ML SYRINGE SQ SCH ×2 (10:54→20:09)
[2022-04-04] MEDS: methylPREDNISolone SOD SUCCI 40 MG/ML 1 ML VIAL IV SCH ×2 (10:55→20:09)
--- NOTE | 2022-04-04 11:05 | P.PN ---
Subjective Progress Note Date: 04/04/22 Principal diagnosis: Sepsis. This is a 66-year-old female with a known history of morbid obesity, bedridden, asthma, viral myalgia, hypertension, anxiety/depression, lifelong nonsmoker. On 03/27/2022 she was here in the emergency department with complaints of symptoms of urinary tract infection. She was found to have E. coli at that time and was treated with antibiotics. Currently the patient did not take her antibiotics due to issues with diarrhea. She was brought back into the emergency room earlier today with altered mental status respiratory distress and low blood pressure. She had been unable to take anything by mouth according to her family members are present at the bedside. White count 19.8. Hemoglobin 13.2. Sodium 139. Potassium 4.6. Chloride 98. Bicarb 24. BUN 85. Creatinine 2.37. AST 121. ALT 48. ProBNP 29. Urinalysis revealed dark brown turbid urine with large leukocyte esterase, greater than 182 WBCs. Many WBC clumps. Many bacteria. Urine drug screen was positive for tricyclic antidepressants and benzodiazepines. Computed tomography scan of the brain revealed age-related atrophic and chronic small vessel ischemic changes without acute intracranial process. Computed tomography scan of the chest revealed lungs are clear and fr ee of infiltrate. Some mild basilar compressive atelectasis. Chronic elevation of the right hemidiaphragm. No pulmonary nodules or masses. CoVID screen was negative. RSV screen negative. Influenza screen negative. Serum alcohol less than 10. Arterial blood gases on 50% FiO2 revealed a PaO2 of 91, pCO2 52 and a pH of 7.33. She was placed on BiPAP 12/6 and 50% FiO2. She is seen today in consultation in the emergency department. She initially was unarousable however she did start to respond to painful stimuli. She is opening her eyes. She is obeying simple commands. He's been initiated on cefepime and vancomycin. She's received 2 L of fluid resuscitation. Normal saline at 100 ML's per hour. She is requiring norepinephrine at 0.1 mcg/kg/m. Progress note dated 04/03/2022. 66-year-old female seen today in room 260 2. seen by the critical care team yesterday. The patient was admitted on April 02, with a diagnosis of urinary tract infection, urosepsis, and septic encephalopathy. Currently, the patient is on BiPAP, settings of 12/6 and 50%. When not on BiPAP, she is receiving nasal O2 at 6 L. She remains on norepinephrine at 8 mcg/m. She's getting saline at 100 mL an hour. She was recently in the hospital with a urinary tract infection, and back on March 27, had Escherichia coli in the urine. Her blood cultures are showing gram-positive cocci. She remains on cefepime and vancomycin. She is a DO NOT RESUSCITATE patient. She is very lethargic and somnolent. White count 16.8, hemoglobin 12, hematocrit 40.7, and platelet count 223,000. Sodium 143, potassium 6, chlorides 105, CO2 25, anion gap 13, BUN 68, and creatinine 1.58. AST is 93 ALT is 48. Progress note dated 04/04/2022. 66-year-old female again seen in room 262. She was admitted on April 02, with a diagnosis of urinary tract infection, urosepsis, and septic encephalopathy. Currently, she is on 6 L nasal cannula. She goes back and forth between nasal cannula, and BiPAP, settings of 12/6, and 50%. She's getting saline at 100 mL an hour. She is on vancomycin and cefepime. Vancomycin can be discontinued. The urine showed evidence of gram-negative bacilli. Current labs include a white count of 13.5, with a normal hemoglobin, hematocrit, and platelet count. Sodium 143, potassium 5.3, chlorides 109, CO2 25, BUN 43, and creatinine 0.81. Urine sampling is showing evidence of gram-negative bacilli, yet to be identified. Objective - Vital Signs Vital signs: Vital Signs Temp 97.7 F 04/04/22 08:00 Pulse 109 H 04/04/22 10:00 Resp 24 04/04/22 10:00 BP 116/65 04/04/22 10:00 Pulse Ox 91 L 04/04/22 10:00 FiO2 50 04/04/22 08:29 Intake & Output 04/03/22 04/04/22 04/04/22 18:59 06:59 18:59 Intake Total 2175.589 1397.471 400 Output Total 1415 2185 715 Balance 760.589 -787.529 -315 Intake: IV 1200 400 Cefepime 2 gm In Sodium 100 Chloride 0.9% 100 ml @ 25 mls/hr IVPB Q12H [facility] Rx# :[id number] Sodium Chloride 0.9% 1, 1100 400 000 ml @ 100 mls/hr IV . Q10H [facility] Rx#:[id number] Intake, IV Titration 2075.589 197.471 Amount Cefepime 2 gm In Sodium 100 Chloride 0.9% 100 ml @ 25 mls/hr IVPB Q12H [facility] Rx# :[id number] Norepinephrine 4 mg In 275.589 97.471 Sodium Chloride 0.9% 250 ml @ 0.03 MCG/KG/MIN 20. 738 mls/hr IV .[id number] [facility] Rx#:[id number] Sodium Chloride 0.9% 1, 600 100 000 ml @ 100 mls/hr IV . Q10H [facility] Rx#:[id number] Sodium Chloride 0.9% 1, 600 000 ml @ 100 mls/hr IV . Q10H [facility] Rx#:[id number] Vancomycin 2,500 mg In 500 Sodium Chloride 0.9% 500 ml 500 ml @ 167 mls/hr IVPB Q36H [facility] Rx#: [id number] Oral 100 Output: Urine 1415 2185 715 Other: Voiding Method Indwelling Catheter Indwelling Catheter # Bowel Movements 1 - Exam No acute distress, lethargic, currently on 6 L of oxygen. HEENT examination is grossly unremarkable. Neck supple. Full range of motion. No adenopathy thyromegaly or neck vein distention. Cardiovascular examination reveals regular rhythm rate. S1-S2 normal. No S3 or S4. No discernible murmur noted. Heart sounds are distant. Heart rate 100 bpm. Lungs reveal scattered mild to moderate rhonchi. Breath sounds are equal bilaterally. No wheezes or crackles. 6 L saturation is 91 %. Abdomen obese, with bowel sounds. No masses or tenderness. Extremities are intact. No cyanosis clubbing or significant edema. Skin is without rash or lesion. Neurologic examination is difficult to assess. She is very somnolent and lethargic. - Labs CBC & Chem 7: 04/04/22 07:11 04/04/22 07:11 Labs: Abnormal Lab Results - Last 24 Hours (Table) 04/03/22 04/04/22 04/04/22 Range/Units 18:57 07:11 07:11 WBC 13.5 H (3.8-10.6) k/uL Neutrophils # 11.8 H (1.3-7.7) k/uL Lymphocytes # 0.9 L (1.0-4.8) k/uL Potassium 5.6 H 5.3 H (3.5-5.1) mmol/L Chloride 109 H (98-107) mmol/L BUN 43 H (7-17) mg/dL Glucose 108 H (74-99) mg/dL Microbiology - Last 24 Hours (Table) 04/02/22 12:25 Urine Culture - Preliminary Urine,Voided Gram Neg Bacilli 04/02/22 11:00 Blood Culture Gram Stain - Preliminary Blood Blood Culture - Preliminary 04/02/22 11:15 Blood Culture Gram Stain - Preliminary Blood Blood Culture - Preliminary Staphylococcus epidermidis 04/02/22 11:00 Blood Culture - Final Blood Assessment and Plan Assessment: Acute mental status changes, secondary to urinary tract infection and septic encephalopathy. Hypotension, secondary to sepsis and septic shock, from urinary tract infection. Acute hypoxemic respiratory failure. Recent episode of E. coli urinary tract infection. Acute renal failure. Morbid obesity. History of essential hypertension. History of fibromyalgia. History of anxiety/depression. History of gastroesophageal reflux disease. Plan: Plan dated 04/03/2022. The patient is currently on cefepime and vancomycin. Her primary blood cultures are showing gram-positive cocci. There yet to be identified. Back on March 27, the urine was positive for E. coli. Currently, the patient's on 6 L of oxygen. Also, at nighttime, she is on BiPAP, with settings of 12/6 and 50%. Unfortunately, she remains on norepinephrine at 8 mcg/m. She is getting saline at 100 mL an hour. Labs, x-rays, and medications are reviewed. Overall prognosis is poor. We'll continue to follow. Plan dated 04/04/2022. Await identification of the urine showing evidence of gram-negative bacilli. Vancomycin can be discontinued. The patient remains on cefepime. Labs, x-rays, and medications are reviewed. Currently, she is on 6 L of oxygen. She goes between nasal cannula, and BiPAP, with settings of 12/6 and 50%. In addition, because of agitation infusion and delirium, I add Haldol 4 - 8 mg IV/IM every 6 hours when necessary. Additional recommendations and suggestions are forthcoming. Prognosis is guarded. Time with Patient: Less than 30
[2022-04-04] MEDS: PANTOPRAZOLE 40 MG TABLET PO SCH (11:07)
[2022-04-04] MEDS: HALOPERIDOL LACTATE 5 MG/ML 1 ML VIAL IVP PRN (18:43)
[2022-04-04] MEDS: DOCUSATE 100 MG CAP PO SCH (20:08)
[2022-04-04] MEDS: QUEtiapine 25 MG TAB PO SCH (20:10)
--- NOTE | 2022-04-04 23:44 | P.PN ---
Subjective Progress Note Date: 04/03/22 This is a pleasant 66 years old female with past medical history off Fibromyalgia, Hypertension, chronic bronchitis, muscle spasms, UTI,Anxiety, Depression Patient desires because of fall on her left hip area with left hip pain. Patient is poor historian . Case was discussed with and emergency room physician Dr. Flower. Patient was recently diagnosed with UTI and she was placed on antibiotics, Keflex is one of her home medication. However patient was refusing to take medication for her UTI because of concern for diarrhea. Today she presents be cause of altered mental status and patient is poor historian. Patient at baseline and is bedbound, she has vague history of CHF and COPD but that comes with septic picture, she was dyspneic at home and she was placed on BiPAP first in the emergency room . Family were at bedside and discussed with Dr. Flower the wishes for the patient to be DO NOT INTUBATE but they're okay to start pressors was started on small dose of pressors and blood pressure improved up to 142/82. She is currently saturating 100% on BiPAP. Patient is afebrile. She has evidence of leukocytosis with WBC 19.8. Rest of CBC is unremarkable. INR is normal. PH is low at 7.3. Potassium 4.6, creatinine up at 2.3 liver enzymes mildly elevated, troponin is negative. Urinalysis is suspicious for infection. Urine toxicology is positive for tricyclic antidepressants and benzodiazepines. Serum alcohol less than 10. Influenza, RSV and cov undetected.id urine culture from 03/[address] of the chest without contrast showing mild bibasilar compressive atelectasis and/or parenchymal scarring. Chronic elevation of the right hemidiaphragm. CT of the brain: No acute process. EKG: Normal sinus rhythm at [address]-T changes. Chest x-ray: Patchy infiltrate right suprahilar region may reflect developing infiltrate Patient was started on cefepime and IV vancomycin ER. Patient has multiple drug ALLERGIES she missed a dose of antibiotic 04/03/2022 Patient is in the MICU. Patient is awake alert but lethargic and weak. Afebrile. Was admitted to hospital due to septic shock secondary to urinary tract infection and encephalopathy. Patient was requiring BiPAP with 50% FiO2. Currently on oxygen 6 L via nasal cannula. Patient is also on pressor support with Levophed. Current on antibiotics in the form of cefepime and vancomycin. Urine culture and blood cultures are pending. Blood cultures showed gram-positive cocci. Previous history of urinary tract infection with E. coli. No nausea vomiting or diarrhea. No cough or sputum production. Laboratory pressure WBC 16.8 hemoglobin 12.7 platelets 223 Sodium 143 potassium 6.0 chloride 105 BUN 68 and creatinine 1.58 Current medications reviewed. Objective - Vital Signs Vital signs: Vital Signs Temp 99.9 F H 04/03/22 20:00 Pulse 109 H 04/03/22 21:00 Resp 15 04/03/22 21:00 BP 97/59 04/03/22 21:00 Pulse Ox 94 L 04/03/22 21:00 FiO2 50 04/03/22 20:41 Intake & Output 04/03/22 04/03/22 04/04/22 06:59 18:59 06:59 Intake Total 1454 2175.589 367.86 Output Total 1805 1415 625 Balance -351 760.589 -257.14 Weight 207.5 kg Intake: IV 200 Sodium Chloride 0.9% 1, 200 000 ml @ 100 mls/hr IV . Q10H [facility] Rx#:[id number] Intake, IV Titration 1454 2075.589 167.86 Amount Cefepime 2 gm In Sodium 100 Chloride 0.9% 100 ml @ 25 mls/hr IVPB Q12H [facility] Rx# :[id number] Norepinephrine 4 mg In 254 275.589 67.86 Sodium Chloride 0.9% 250 ml @ 0.03 MCG/KG/MIN 20. 738 mls/hr IV .[id number] [facility] Rx#:[id number] Sodium Chloride 0.9% 1, 600 100 000 ml @ 100 mls/hr IV . Q10H [facility] Rx#:[id number] Sodium Chloride 0.9% 1, 1200 600 000 ml @ 100 mls/hr IV . Q10H [facility] Rx#:[id number] Vancomycin 2,500 mg In 500 Sodium Chloride 0.9% 500 ml 500 ml @ 167 mls/hr IVPB Q36H [facility] Rx#: [id number] Oral 100 Output: Urine 1805 1415 625 Other: Voiding Method Indwelling Catheter Indwelling Catheter Indwelling Catheter # Bowel Movements 1 - Exam --GENERAL: The patient is currently on BiPAP looks confused and cannot provide information, obese HEENT: Pupils are round and equally reacting to light. EOMI. No scleral icterus. No conjunctival pallor. Normocephalic, atraumatic. No pharyngeal erythema. No thyromegaly. CARDIOVASCULAR: S1 and S2 present. No murmurs, rubs, or gallops. PULMONARY: Chest is clear to auscultation, no wheezing or crackles. ABDOMEN: Soft, nontender, nondistended, normoactive bowel sounds. No palpable organomegaly. MUSCULOSKELETAL: No joint swelling or deformity. EXTREMITIES: No cyanosis, clubbing, or pedal edema. NEUROLOGICAL: Gross neurological examination did not reveal any focal deficits. SKIN: No rashes. no petechiae. - Labs CBC & Chem 7: 04/04/22 07:11 04/04/22 07:11 Labs: Abnormal Lab Results - Last 24 Hours (Table) 04/03/22 04/03/22 04/03/22 Range/Units 06:40 06:40 18:57 WBC 16.8 H (3.8-10.6) k/uL Neutrophils # 15.5 H (1.3-7.7) k/uL Lymphocytes # 0.6 L (1.0-4.8) k/uL Potassium 6.0 H 5.6 H (3.5-5.1) mmol/L BUN 68 H (7-17) mg/dL Creatinine 1.58 H (0.52-1.04) mg/dL Glucose 124 H (74-99) mg/dL AST 93 H (14-36) U/L ALT 48 H (4-34) U/L Microbiology - Last 24 Hours (Table) 04/02/22 12:25 Urine Culture - Preliminary Urine,Voided Gram Neg Bacilli 04/02/22 11:00 Blood Culture Gram Stain - Preliminary Blood Blood Culture - Preliminary 04/02/22 11:15 Blood Culture Gram Stain - Preliminary Blood Blood Culture - Preliminary Staphylococcus epidermidis 04/02/22 11:00 Blood Culture - Final Blood 04/02/22 11:15 Blood Culture - Final Blood Assessment and Plan Assessment: Septic shock secondary to acute urinary tract infection requiring pressor support. Metabolic/toxic encephalopathy Acute urinary tract infection, culture from previous sample growing E. coli Nonadherence to treatment as an outpatient for her UTI Acute kidney injury likely prerenal. Metabolic acidosis Mild COPD exacerbation Morbid obesity with BMI of 62.0 DVT prophylaxis with heparin subcu Plan: Continue with antibiotic currently on cefepime and IV vancomycin Urine culture showed gram-negative bacilli and blood culture showed gram-pos itive cocci awaiting final culture report. Continue with pressor support with Levophed. Critical care team on board. Patient was on BiPAP and currently titrated down to oxygen 6 L via nasal cannula. Monitor mental status continue with IV steroids and duo nebs. DVT and GI prophylaxis. Further recommendations as per clinical course of the patient DVT prophylaxis: Subcutaneous heparin GI Prophylaxis: Pepcid Prognosis is guarded Time with Patient: Greater than 30
--- NOTE | 2022-04-04 23:48 | P.PN ---
Subjective Progress Note Date: 04/04/22 This is a pleasant 66 years old female with past medical history off Fibromyalgia, Hypertension, chronic bronchitis, muscle spasms, UTI,Anxiety, Depression Patient desires because of fall on her left hip area with left hip pain. Patient is poor historian . Case was discussed with and emergency room physician Dr. Flower. Patient was recently diagnosed with UTI and she was placed on antibiotics, Keflex is one of her home medication. However patient was refusing to take medication for her UTI because of concern for diarrhea. Today she presents be cause of altered mental status and patient is poor historian. Patient at baseline and is bedbound, she has vague history of CHF and COPD but that comes with septic picture, she was dyspneic at home and she was placed on BiPAP first in the emergency room . Family were at bedside and discussed with Dr. Flower the wishes for the patient to be DO NOT INTUBATE but they're okay to start pressors was started on small dose of pressors and blood pressure improved up to 142/82. She is currently saturating 100% on BiPAP. Patient is afebrile. She has evidence of leukocytosis with WBC 19.8. Rest of CBC is unremarkable. INR is normal. PH is low at 7.3. Potassium 4.6, creatinine up at 2.3 liver enzymes mildly elevated, troponin is negative. Urinalysis is suspicious for infection. Urine toxicology is positive for tricyclic antidepressants and benzodiazepines. Serum alcohol less than 10. Influenza, RSV and cov undetected.id urine culture from 03/[address] of the chest without contrast showing mild bibasilar compressive atelectasis and/or parenchymal scarring. Chronic elevation of the right hemidiaphragm. CT of the brain: No acute process. EKG: Normal sinus rhythm at [address]-T changes. Chest x-ray: Patchy infiltrate right suprahilar region may reflect developing infiltrate Patient was started on cefepime and IV vancomycin ER. Patient has multiple drug ALLERGIES she missed a dose of antibiotic 04/03/2022 Patient is in the MICU. Patient is awake alert but lethargic and weak. Afebrile. Was admitted to hospital due to septic shock secondary to urinary tract infection and encephalopathy. Patient was requiring BiPAP with 50% FiO2. Currently on oxygen 6 L via nasal cannula. Patient is also on pressor support with Levophed. Current on antibiotics in the form of cefepime and vancomycin. Urine culture and blood cultures are pending. Blood cultures showed gram-positive cocci. Previous history of urinary tract infection with E. coli. No nausea vomiting or diarrhea. No cough or sputum production. Laboratory pressure WBC 16.8 hemoglobin 12.7 platelets 223 Sodium 143 potassium 6.0 chloride 105 BUN 68 and creatinine 1.58 04/04/2022 Patient is in the MICU. Lying in bed. Awake alert and oriented x3. Patient is lethargic and weak. Currently on oxygen via nasal cannula. Off pressor support. Blood cultures growing staph epidermis. Vancomycin has been discontinued and patient is being continued on cefepime. Urine culture showed gram-negative bacilli. Finalized report is pending. Patient has been afebrile. No nausea vomiting or abdominal pain or diarrhea. No cough or sputum production. Laboratory data showed WBC 13.5 hemoglobin 12.6 and platelets 176 Sodium 143 potassium 5.3 chloride 109 BUN 43 creatinine 0.81 Current medications reviewed. Objective - Vital Signs Vital signs: Vital Signs Temp 97.9 F 04/04/22 20:00 Pulse 109 H 04/04/22 20:35 Resp 28 H 04/04/22 20:00 BP 101/60 04/04/22 20:00 Pulse Ox 96 04/04/22 20:00 FiO2 50 04/04/22 08:29 Intake & Output 04/04/22 04/04/22 04/05/22 06:59 18:59 06:59 Intake Total 9691.027 4698 100 Output Total 2185 1595 80 Balance -787.529 500 20 Intake: IV 1200 1300 100 Cefepime 2 gm In Sodium 100 100 Chloride 0.9% 100 ml @ 25 mls/hr IVPB Q12H [facility] Rx# :[id number] Sodium Chloride 0.9% 1, 1100 1200 100 000 ml @ 100 mls/hr IV . Q10H [facility] Rx#:[id number] Intake, IV Titration 197.471 Amount Norepinephrine 4 mg In 97.471 Sodium Chloride 0.9% 250 ml @ 0.03 MCG/KG/MIN 20. 738 mls/hr IV .[id number] [facility] Rx#:[id number] Sodium Chloride 0.9% 1, 100 000 ml @ 100 mls/hr IV . Q10H [facility] Rx#:[id number] Oral 795 Output: Urine 2185 1595 80 Other: Voiding Method Indwelling Catheter Indwelling Catheter - Exam --GENERAL: The patient is currently on BiPAP looks confused and cannot provide information, obese HEENT: Pupils are round and equally reacting to light. EOMI. No scleral icterus. No conjunctival pallor. Normocephalic, atraumatic. No pharyngeal erythema. No thyromegaly. CARDIOVASCULAR: S1 and S2 present. No murmurs, rubs, or gallops. PULMONARY: Chest is clear to auscultation, no wheezing or crackles. ABDOMEN: Soft, nontender, nondistended, normoactive bowel sounds. No palpable organomegaly. MUSCULOSKELETAL: No joint swelling or deformity. EXTREMITIES: No cyanosis, clubbing, or pedal edema. NEUROLOGICAL: Gross neurological examination did not reveal any focal deficits. SKIN: No rashes. no petechiae. - Labs CBC & Chem 7: 04/04/22 07:11 04/04/22 07:11 Labs: Abnormal Lab Results - Last 24 Hours (Table) 04/04/22 04/04/22 Range/Units 07:11 07:11 WBC 13.5 H (3.8-10.6) k/uL Neutrophils # 11.8 H (1.3-7.7) k/uL Lymphocytes # 0.9 L (1.0-4.8) k/uL Potassium 5.3 H (3.5-5.1) mmol/L Chloride 109 H (98-107) mmol/L BUN 43 H (7-17) mg/dL Glucose 108 H (74-99) mg/dL Microbiology - Last 24 Hours (Table) 04/02/22 12:25 Urine Culture - Final Urine,Voided Escherichia coli 04/02/22 11:00 Blood Culture Gram Stain - Preliminary Blood Blood Culture - Preliminary Assessment and Plan Assessment: Septic shock secondary to acute urinary tract infection requiring pressor suppo rt. off pressors now. Metabolic/toxic encephalopathy. improved. Acute urinary tract infection, culture from previous sample growing E. coli Nonadherence to treatment as an outpatient for her UTI Acute kidney injury likely prerenal. Metabolic acidosis Mild COPD exacerbation Morbid obesity with BMI of 62.0 DVT prophylaxis with heparin subcu Plan: Continue with antibiotic currently on cefepime and IV vancomycin Urine culture showed gram-negative bacilli and blood culture showed staph epi. awaiting final culture report. off Levophed. Critical care team on board. Patient was on BiPAP and currently titrated down to oxygen 6 L via nasal cannula. Monitor mental status continue with IV steroids and duo nebs. DVT and GI prophylaxis. Further recommendations as per clinical course of the patient DVT prophylaxis: Subcutaneous heparin GI Prophylaxis: Pepcid Prognosis is guarded Time with Patient: Greater than 30
[2022-04-05] MEDS ORDERED: VANCOMYCIN 2,500 MG in SODIUM CHLORIDE 0.9% 500 ML 500 ML IVPB SCH ×2
[2022-04-05] MEDS: IPRATROPIUM-ALBUTEROL 3 ML NEB INHALATION SCH ×7 (00:02→23:51)
[2022-04-05] MEDS: HEPARIN SODIUM,PORCINE/PF 5,000 UNIT/0.5 ML SYRINGE SQ SCH ×4 (00:24→23:05)
--- NOTE | 2022-04-05 11:41 | PN ---
PROGRESS NOTE This is a Pulmonary/Critical Care Progress Note SUBJECTIVE: A 66-year-old female, seen again in room 262. She was admitted with a diagnosis of urosepsis/septic shock. We did discover Escherichia coli in the urine. She is on cefepime. The patient is a DNR. She is seen in room 262. She did not require BiPAP last night. She is getting saline at 100 mL an hour. She is on 5 L of oxygen. OBJECTIVE: VITAL SIGNS: Current vital signs include a saturation 98%, blood pressure 114/80, heart rate 90, temperature 98.4 degrees, and respiratory rate 22. GENERAL: Appears in no acute distress. Much more alert and awake today. HEENT: Grossly unremarkable. NECK: Supple. Full range of motion. No adenopathy. Neck veins are flat. CARDIOVASCULAR: Reveals regular rhythm and rate. S1, S2 normal. Heart rate 90 beats per minute. LUNGS: Reveal scattered rhonchi. Breath sounds equal. ABDOMEN: Obese. Bowel sounds are heard. EXTREMITIES: Intact. Trace edema. No cyanosis or clubbing. SKIN: Without rash. NEUROLOGIC: Brief, but nonfocal. Labs, x-rays, and medications are not available. The patient did have Escherichia coli in the urine. She is on cefepime. ASSESSMENT: 1. Escherichia coli urinary tract infection/urosepsis with septic shock, improved. 2. Respiratory failure, currently on high-flow nasal O2. 3. Obesity. PLAN: The patient appears to be doing better. We will continue to follow. Prognosis is guarded. No additional recommendations are made. She is a DNR. MMODL / IJN: [id number] /
[2022-04-05] MEDS: NOREPINEPHRINE 4 MG in SODIUM CHLORIDE 0.9% 250 ML IV SCH ×2 (11:58→14:15)
[2022-04-05] MEDS: methylPREDNISolone SOD SUCCI 40 MG/ML 1 ML VIAL IV SCH ×2 (11:59→20:27)
[2022-04-05] MEDS: SODIUM CHLORIDE 0.9% 1,000 ML IV SCH ×3 (11:59→23:10)
[2022-04-05] MEDS: PANTOPRAZOLE 40 MG TABLET PO SCH (11:59)
[2022-04-05] MEDS: CEFEPIME 2 GM in SODIUM CHLORIDE 0.9% 100 ML IVPB SCH ×2 (11:59→16:14)
[2022-04-05] MEDS ORDERED: ACETAMINOPHEN TAB 500 MG TAB PO PRN (17:12)
[2022-04-05 17:35] LABS: ALT 42 U/L (4-34); AST 58 U/L (14-36); African American GFR (CKD) >90 (>60 ml/min/1.73 sqM); Albumin 3.6 g/dL (3.5-5.0); Alkaline Phosphatase 86 U/L (38-126); Anion Gap 13 mmol/L; Blood Urea Nitrogen 36 mg/dL (7-17); Calcium 9.5 mg/dL (8.4-10.2); Carbon Dioxide 21 mmol/L (22-30); Chloride 106 mmol/L (98-107); Glucose 98 mg/dL (74-99); Non-African American GFR(CKD) >90 (>60 ml/min/1.73 sqM); Sodium 140 mmol/L (137-145); Total Bilirubin 0.5 mg/dL (0.2-1.3); Total Protein 6.6 g/dL (6.3-8.2)
[2022-04-05 17:36] LABS: Basophils # (A) 0.1 k/uL (0-0.2); Basophils % (A) 0 %; Eosinophils # (A) 0.1 k/uL (0-0.7); Eosinophils % (A) 1 %; HCT 37.3 % (34.0-46.0); Hypochromasia Moderate; Lymphocytes # (A) 1.2 k/uL (1.0-4.8); Lymphocytes % (A) 9 %; MCHC 32.1 g/dL (31.0-37.0); MCV 93.2 fL (80.0-100.0); Mean Platelet Volume 8.9; Monocytes # (A) 0.8 k/uL (0-1.0); Monocytes % (A) 6 %; Neutrophils # (A) 11.3 k/uL (1.3-7.7); Neutrophils % (A) 83 %; Platelet Count 172 k/uL (150-450); RDW 14.2 % (11.5-15.5); WBC 13.5 k/uL (3.8-10.6)
[2022-04-05] MEDS: DOCUSATE 100 MG CAP PO SCH (20:27)
[2022-04-05] MEDS: QUEtiapine 25 MG TAB PO SCH (20:28)
[2022-04-06] MEDS: CEFEPIME 2 GM in SODIUM CHLORIDE 0.9% 100 ML IVPB SCH ×2 (01:15→14:44)
[2022-04-06] MEDS: SODIUM CHLORIDE 0.9% 1,000 ML IV SCH ×2 (01:15→21:28)
[2022-04-06] MEDS: NOREPINEPHRINE 4 MG in SODIUM CHLORIDE 0.9% 250 ML IV SCH (02:00)
[2022-04-06] MEDS: IPRATROPIUM-ALBUTEROL 3 ML NEB INHALATION SCH ×6 (03:22→23:17)
[2022-04-06] MEDS: PANTOPRAZOLE 40 MG TABLET PO SCH (06:46)
[2022-04-06 07:18] LABS: Basophils # (A) 0.1 k/uL (0-0.2); Basophils % (A) 1 %; Eosinophils % (A) 0 %; HCT 37.5 % (34.0-46.0); HGB 11.8 gm/dL (11.4-16.0); Hypochromasia Moderate; Lymphocytes # (A) 1.7 k/uL (1.0-4.8); Lymphocytes % (A) 14 %; MCH 29.2 pg (25.0-35.0); MCHC 31.5 g/dL (31.0-37.0); MCV 92.7 fL (80.0-100.0); Mean Platelet Volume 9.5; Monocytes # (A) 0.8 k/uL (0-1.0); Monocytes % (A) 7 %; Neutrophils # (A) 9.2 k/uL (1.3-7.7); Neutrophils % (A) 76 %; Platelet Count 167 k/uL (150-450); RBC 4.05 m/uL (3.80-5.40); RDW 14.3 % (11.5-15.5); WBC 12.1 k/uL (3.8-10.6)
[2022-04-06 07:31] LABS: African American GFR (CKD) >90 (>60 ml/min/1.73 sqM); Anion Gap 10 mmol/L; Blood Urea Nitrogen 27 mg/dL (7-17); Calcium 9.5 mg/dL (8.4-10.2); Carbon Dioxide 24 mmol/L (22-30); Chloride 107 mmol/L (98-107); Glucose 80 mg/dL (74-99); Non-African American GFR(CKD) >90 (>60 ml/min/1.73 sqM); Potassium 4.4 mmol/L (3.5-5.1); Sodium 141 mmol/L (137-145)
[2022-04-06] MEDS: HEPARIN SODIUM,PORCINE/PF 5,000 UNIT/0.5 ML SYRINGE SQ SCH ×2 (09:11→17:22)
[2022-04-06] MEDS: predniSONE 10 MG TAB PO SCH (09:11)
--- NOTE | 2022-04-06 10:20 | P.PN ---
Subjective Progress Note Date: 04/06/22 Principal diagnosis: Sepsis. This is a 66-year-old female with a known history of morbid obesity, bedridden, asthma, viral myalgia, hypertension, anxiety/depression, lifelong nonsmoker. On 03/27/2022 she was here in the emergency department with complaints of symptoms of urinary tract infection. She was found to have E. coli at that time and was treated with antibiotics. Currently the patient did not take her antibiotics due to issues with diarrhea. She was brought back into the emergency room earlier today with altered mental status respiratory distress and low blood pressure. She had been unable to take anything by mouth according to her family members are present at the bedside. White count 19.8. Hemoglobin 13.2. Sodium 139. Potassium 4.6. Chloride 98. Bicarb 24. BUN 85. Creatinine 2.37. AST 121. ALT 48. ProBNP 29. Urinalysis revealed dark brown turbid urine with large leukocyte esterase, greater than 182 WBCs. Many WBC clumps. Many bacteria. Urine drug screen was positive for tricyclic antidepressants and benzodiazepines. Computed tomography scan of the brain revealed age-related atrophic and chronic small vessel ischemic changes without acute intracranial process. Computed tomography scan of the chest revealed lungs are clear and fr ee of infiltrate. Some mild basilar compressive atelectasis. Chronic elevation of the right hemidiaphragm. No pulmonary nodules or masses. CoVID screen was negative. RSV screen negative. Influenza screen negative. Serum alcohol less than 10. Arterial blood gases on 50% FiO2 revealed a PaO2 of 91, pCO2 52 and a pH of 7.33. She was placed on BiPAP 12/6 and 50% FiO2. She is seen today in consultation in the emergency department. She initially was unarousable however she did start to respond to painful stimuli. She is opening her eyes. She is obeying simple commands. He's been initiated on cefepime and vancomycin. She's received 2 L of fluid resuscitation. Normal saline at 100 ML's per hour. She is requiring norepinephrine at 0.1 mcg/kg/m. Progress note dated 04/03/2022. 66-year-old female seen today in room 260 2. seen by the critical care team yesterday. The patient was admitted on April 02, with a diagnosis of urinary tract infection, urosepsis, and septic encephalopathy. Currently, the patient is on BiPAP, settings of 12/6 and 50%. When not on BiPAP, she is receiving nasal O2 at 6 L. She remains on norepinephrine at 8 mcg/m. She's getting saline at 100 mL an hour. She was recently in the hospital with a urinary tract infection, and back on March 27, had Escherichia coli in the urine. Her blood cultures are showing gram-positive cocci. She remains on cefepime and vancomycin. She is a DO NOT RESUSCITATE patient. She is very lethargic and somnolent. White count 16.8, hemoglobin 12, hematocrit 40.7, and platelet count 223,000. Sodium 143, potassium 6, chlorides 105, CO2 25, anion gap 13, BUN 68, and creatinine 1.58. AST is 93 ALT is 48. Progress note dated 04/04/2022. 66-year-old female again seen in room 262. She was admitted on April 02, with a diagnosis of urinary tract infection, urosepsis, and septic encephalopathy. Currently, she is on 6 L nasal cannula. She goes back and forth between nasal cannula, and BiPAP, settings of 12/6, and 50%. She's getting saline at 100 mL an hour. She is on vancomycin and cefepime. Vancomycin can be discontinued. The urine showed evidence of gram-negative bacilli. Current labs include a white count of 13.5, with a normal hemoglobin, hematocrit, and platelet count. Sodium 143, potassium 5.3, chlorides 109, CO2 25, BUN 43, and creatinine 0.81. Urine sampling is showing evidence of gram-negative bacilli, yet to be identified. Progress note dated 04/06/2022. 66-year-old female seen again in room 262. The patient is currently doing reasonably well. She is on 5 L nasal cannula. She did not use BiPAP last night. She's getting saline at 100 mL an hour. She is getting cefepime for Escherichia coli infection. Clinically, she appears much more stable. White count 12.1, hemoglobin 11.8, hematocrit 37.5, and platelet count normal. Sodium 141, potassium 4.4, chlorides 107, CO2 24, BUN 27, and creatinine 0.67. Objective - Vital Signs Vital signs: Vital Signs Temp 98.5 F 04/06/22 08:00 Pulse 106 H 04/06/22 09:00 Resp 23 04/06/22 09:00 BP 131/76 04/06/22 09:00 Pulse Ox 93 L 04/06/22 09:00 FiO2 50 04/04/22 08:29 Intake & Output 04/05/22 04/06/22 04/06/22 19:59 06:59 18:59 Intake Total 300 Output Total 420 Balance -120 Weight Intake: IV 300 Sodium Chloride 0.9% 1, 300 000 ml @ 100 mls/hr IV . Q10H [facility] Rx#:[id number] Output: Urine 420 Other: Voiding Method # Bowel Movements - Exam No acute distress, lethargic, currently on 5 L of oxygen. HEENT examination is grossly unremarkable. Neck supple. Full range of motion. No adenopathy thyromegaly or neck vein distention. Cardiovascular examination reveals regular rhythm rate. S1-S2 normal. No S3 or S4. No discernible murmur noted. Heart sounds are distant. Heart rate 96 bpm. Lungs reveal scattered mild to moderate rhonchi. Breath sounds are equal bilaterally. No wheezes or crackles. 5 L saturation is 93%. Abdomen obese, with bowel sounds. No masses or tenderness. Extremities are intact. No cyanosis clubbing or significant edema. Skin is without rash or lesion. Neurologic examination is difficult to assess. She is very somnolent and lethargic. - Labs CBC & Chem 7: 04/06/22 06:38 04/06/22 06:38 Labs: Abnormal Lab Results - Last 24 Hours (Table) 04/05/22 04/05/22 04/06/22 Range/Units 06:18 06:18 06:38 WBC 13.5 H (3.8-10.6) k/uL Neutrophils # 11.3 H (1.3-7.7) k/uL Carbon Dioxide 21 L (22-30) mmol/L BUN 36 H 27 H (7-17) mg/dL AST 58 H (14-36) U/L ALT 42 H (4-34) U/L 04/06/22 Range/Units 06:38 WBC 12.1 H (3.8-10.6) k/uL Neutrophils # 9.2 H (1.3-7.7) k/uL Carbon Dioxide (22-30) mmol/L BUN (7-17) mg/dL AST (14-36) U/L ALT (4-34) U/L Microbiology - Last 24 Hours (Table) 04/02/22 11:15 Blood Culture Gram Stain - Preliminary Blood Blood Culture - Preliminary Staphylococcus epidermidis 04/02/22 11:00 Blood Culture Gram Stain - Preliminary Blood Blood Culture - Preliminary Coagulase Negative Staph Assessment and Plan Assessment: Acute mental status changes, secondary to Escherichia coli urinary tract infection and septic encephalopathy. Hypotension, secondary to sepsis and septic shock, from urinary tract infection. Acute hypoxemic respiratory failure. Recent episode of E. coli urinary tract infection. Acute renal failure. Morbid obesity. History of essential hypertension. History of fibromyalgia. History of anxiety/depression. History of gastroesophageal reflux disease. Plan: Plan dated 04/03/2022. The patient is currently on cefepime and vancomycin. Her primary blood cultures are showing gram-positive cocci. There yet to be identified. Back on March 27, the urine was positive for E. coli. Currently, the patient's on 6 L of oxygen. Also, at nighttime, she is on BiPAP, with settings of 12/6 and 50%. Unfortunately, she remains on norepinephrine at 8 mcg/m. She is getting saline at 100 mL an hour. Labs, x-rays, and medications are reviewed. Overall prognosis is poor. We'll continue to follow. Plan dated 04/04/2022. Await identification of the urine showing evidence of gram-negative bacilli. Vancomycin can be discontinued. The patient remains on cefepime. Labs, x-rays, and medications are reviewed. Currently, she is on 6 L of oxygen. She goes between nasal cannula, and BiPAP, with settings of 12/6 and 50%. In addition, because of agitation infusion and delirium, I add Haldol 4 - 8 mg IV/IM every 6 hours when necessary. Additional recommendations and suggestions are fo rthcoming. Prognosis is guarded. Plan dated 04/06/2022. Urine was positive for Escherichia coli. The patient remains on cefepime. She's getting saline at 100 mL an hour. We will DC the BiPAP. She did not use it last night. Labs, x-rays, and medications are reviewed. She remains on 5 L of oxygen. Saturations are 93%. Prognosis is guarded. We will continue to follow the patient and make recommendations along the way. Time with Patient: Less than 30
[2022-04-06] MEDS: HALOPERIDOL LACTATE 5 MG/ML 1 ML VIAL IVP PRN (12:58)
[2022-04-06] MEDS: DOCUSATE 100 MG CAP PO SCH (21:28)
[2022-04-06] MEDS: QUEtiapine 25 MG TAB PO SCH (21:29)
--- NOTE | 2022-04-07 01:18 | P.PN ---
Subjective Progress Note Date: 04/05/22 This is a pleasant 66 years old female with past medical history off Fibromyalgia, Hypertension, chronic bronchitis, muscle spasms, UTI,Anxiety, Depression Patient desires because of fall on her left hip area with left hip pain. Patient is poor historian . Case was discussed with and emergency room physician Dr. Flower. Patient was recently diagnosed with UTI and she was placed on antibiotics, Keflex is one of her home medication. However patient was refusing to take medication for her UTI because of concern for diarrhea. Today she presents be cause of altered mental status and patient is poor historian. Patient at baseline and is bedbound, she has vague history of CHF and COPD but that comes with septic picture, she was dyspneic at home and she was placed on BiPAP first in the emergency room . Family were at bedside and discussed with Dr. Flower the wishes for the patient to be DO NOT INTUBATE but they're okay to start pressors was started on small dose of pressors and blood pressure improved up to 142/82. She is currently saturating 100% on BiPAP. Patient is afebrile. She has evidence of leukocytosis with WBC 19.8. Rest of CBC is unremarkable. INR is normal. PH is low at 7.3. Potassium 4.6, creatinine up at 2.3 liver enzymes mildly elevated, troponin is negative. Urinalysis is suspicious for infection. Urine toxicology is positive for tricyclic antidepressants and benzodiazepines. Serum alcohol less than 10. Influenza, RSV and cov undetected.id urine culture from 03/[address] of the chest without contrast showing mild bibasilar compressive atelectasis and/or parenchymal scarring. Chronic elevation of the right hemidiaphragm. CT of the brain: No acute process. EKG: Normal sinus rhythm at [address]-T changes. Chest x-ray: Patchy infiltrate right suprahilar region may reflect developing infiltrate Patient was started on cefepime and IV vancomycin ER. Patient has multiple drug ALLERGIES she missed a dose of antibiotic 04/03/2022 Patient is in the MICU. Patient is awake alert but lethargic and weak. Afebrile. Was admitted to hospital due to septic shock secondary to urinary tract infection and encephalopathy. Patient was requiring BiPAP with 50% FiO2. Currently on oxygen 6 L via nasal cannula. Patient is also on pressor support with Levophed. Current on antibiotics in the form of cefepime and vancomycin. Urine culture and blood cultures are pending. Blood cultures showed gram-positive cocci. Previous history of urinary tract infection with E. coli. No nausea vomiting or diarrhea. No cough or sputum production. Laboratory pressure WBC 16.8 hemoglobin 12.7 platelets 223 Sodium 143 potassium 6.0 chloride 105 BUN 68 and creatinine 1.58 04/04/2022 Patient is in the MICU. Lying in bed. Awake alert and oriented x3. Patient is lethargic and weak. Currently on oxygen via nasal cannula. Off pressor support. Blood cultures growing staph epidermis. Vancomycin has been discontinued and patient is being continued on cefepime. Urine culture showed gram-negative bacilli. Finalized report is pending. Patient has been afebrile. No nausea vomiting or abdominal pain or diarrhea. No cough or sputum production. Laboratory data showed WBC 13.5 hemoglobin 12.6 and platelets 176 Sodium 143 potassium 5.3 chloride 109 BUN 43 creatinine 0.81 04/05/2022 Patient is currently lying in bed. Awake alert and oriented x3. No complaints of chest pain or shortness of breath. No nausea vomiting abdominal pain or diarrhea. Patient is off pressor support. Continue antibiotics and follow cefepime and duo nebs. Patient is also on IV hydration with normal saline at hand-assisted brother. Laboratory data showed WBC 13.4 hemoglobin 12.0 and platelets 172 Sodium 140 potassium 5.0 chloride 106 bicarb is 21 BUN 36 and creatinine 0.62. Liver enzymes are trending down. Urine culture showed E. coli and blood cultures showed staph epidermis. Pulmonary and ID is on board. Current medications reviewed. Objective - Vital Signs Vital signs: Vital Signs Temp 98.2 F 04/04/22 23:11 Pulse 107 H 04/05/22 19:00 Resp 38 H 04/05/22 19:00 BP 144/87 04/05/22 19:00 Pulse Ox 92 L 04/05/22 19:00 FiO2 50 04/04/22 08:29 Intake & Output 04/05/22 04/05/22 04/06/22 06:59 18:59 05:59 Intake Total 1300 600 100 Output Total 860 750 100 Balance 440 -150 0 Intake: IV 800 600 100 Sodium Chloride 0.9% 1, 800 600 100 000 ml @ 100 mls/hr IV . Q10H [facility] Rx#:[id number] Oral 500 Output: Urine 860 750 100 Other: Voiding Method Indwelling Catheter Indwelling Catheter - Exam --GENERAL: The patient is currently on BiPAP looks confused and cannot provide information, obese HEENT: Pupils are round and equally reacting to light. EOMI. No scleral icterus. No conjunctival pallor. Normocephalic, atraumatic. No pharyngeal erythema. No thyromegaly. CARDIOVASCULAR: S1 and S2 present. No murmurs, rubs, or gallops. PULMONARY: Chest is clear to auscultation, no wheezing or crackles. ABDOMEN: Soft, nontender, nondistended, normoactive bowel sounds. No palpable organomegaly. MUSCULOSKELETAL: No joint swelling or deformity. EXTREMITIES: No cyanosis, clubbing, or pedal edema. NEUROLOGICAL: Gross neurological examination did not reveal any focal deficits. SKIN: No rashes. no petechiae. - Labs CBC & Chem 7: 04/06/22 06:38 04/06/22 06:38 Labs: Abnormal Lab Results - Last 24 Hours (Table) 04/05/22 04/05/22 Range/Units 06:18 06:18 WBC 13.5 H (3.8-10.6) k/uL Neutrophils # 11.3 H (1.3-7.7) k/uL Carbon Dioxide 21 L (22-30) mmol/L BUN 36 H (7-17) mg/dL AST 58 H (14-36) U/L ALT 42 H (4-34) U/L Microbiology - Last 24 Hours (Table) 04/02/22 11:15 Blood Culture Gram Stain - Preliminary Blood Blood Culture - Preliminary Staphylococcus epidermidis 04/02/22 11:00 Blood Culture Gram Stain - Preliminary Blood Blood Culture - Preliminary Coagulase Negative Staph Assessment and Plan Assessment: Septic shock secondary to acute urinary tract infection requiring pressor suppor t. off pressors now. Metabolic/toxic encephalopathy. improved. Acute urinary tract infection, culture from previous sample growing E. coli Nonadherence to treatment as an outpatient for her UTI Acute kidney injury likely prerenal. Metabolic acidosis Mild COPD exacerbation Morbid obesity with BMI of 62.0 DVT prophylaxis with heparin subcu Plan: Continue with antibiotic currently on cefepime and IV vancomycin dced Urine culture showed gram-negative bacilli and blood culture showed staph epi. awaiting final culture report. off Levophed. Critical care team on board. Patient was on BiPAP and currently titrated down to oxygen 6 L via nasal cannula. Monitor mental status continue with IV steroids and duo nebs. DVT and GI prophylaxis. Further recommendations as per clinical course of the patient DVT prophylaxis: Subcutaneous heparin GI Prophylaxis: Pepcid Prognosis is guarded Time with Patient: Greater than 30
[2022-04-07] MEDS: HEPARIN SODIUM,PORCINE/PF 5,000 UNIT/0.5 ML SYRINGE SQ SCH ×2 (02:31→11:51)
[2022-04-07] MEDS: CEFEPIME 2 GM in SODIUM CHLORIDE 0.9% 100 ML IVPB SCH ×2 (02:31→16:53)
[2022-04-07] MEDS: SODIUM CHLORIDE 0.9% 1,000 ML IV SCH ×2 (02:32→20:54)
[2022-04-07] MEDS: IPRATROPIUM-ALBUTEROL 3 ML NEB INHALATION SCH ×5 (05:48→21:06)
[2022-04-07] MEDS: PANTOPRAZOLE 40 MG TABLET PO SCH (06:56)
[2022-04-07] MEDS ORDERED: FUROSEMIDE 10 MG/ML 4 ML VIAL IV STA (08:35)
[2022-04-07 09:05] LABS: Glucose,Whole Blood 88 mg/dL (70-110)
--- NOTE | 2022-04-07 10:39 | P.GSCN ---
History of Present Illness Consult date: 04/07/22 History of present illness: CHIEF COMPLAINT: UTI with sepsis Reason for consult GI bleed HISTORY OF PRESENT ILLNESS: This is a 66-year-old female who presented to the [facility] with evidence of UTI with sepsis. She is on antibiotics. Patient is bedbound and has history of morbid obesity. This morning patient had an "ATEAM" called for GI bleed. Patient had a bowel movement with bright red stool and very large blood clot. Patient denies any prior history of GI bleed. She denies any regular NSAID use. She does have a history of peptic ulcer disease and has been on omeprazole. Patient reports her last EGD was greater than 5 years ago. Patient also reports last colonoscopy was over 5 years ago with no abnormality. Denies a history of diverticulitis. She did have a Cologaurd test 2 months ago and does not know those results. Patient does report pain in the upper right upper quadrant epigastric area. She denies any nausea or vomiting. Hemoglobin on admission was 13.2 and hemoglobin from yesterday 11.8. CBC for today is pending. Patient denies any history of blood thinners. She's currently on DVT prophylaxis subcu heparin. Patient has been mildly tachycardic. She is on high flow oxygen 97%. Patient did receive a 2 L fluid bolus this morning. PAST MEDICAL HISTORY: See list. PAST SURGICAL HISTORY: See list. MEDICATIONS: See list. ALLERGIES: See list. SOCIAL HISTORY: No illicit drug use. Nicotine dependence REVIEW OF SYSTEMS: CONSTITUTIONAL: Denies fever or chills. HEENT: Denies blurred vision, vision changes, or eye pain. Denies hemoptysis ENDOCRINE: Denies heat or cold intolerance. CARDIOVASCULAR: Denies chest pain or pressure. RESPIRATORY: No shortness of breath. GASTROINTESTINAL: Please refer to HPI otherwise unremarkable NEURO: Denies history of seizures. PSYCH: No depression or suicidal ideation HEMATOLOGIC: Denies bleeding disorders. LYMPHATIC: The patient denies any lumps and bumps around the neck. GENITOURINARY: Denies any blood in urine or increased urinary frequency. MUSCULOSKELETAL: Denies myalgias. Denies joint swelling. Denies decreased range of motion beyond patients baseline. SKIN: Denies pruitis. Denies rash. PHYSICAL EXAM: VITAL SIGNS: Reviewed GENERAL: Well-developed in no acute distress. HEENT: No sclera icterus. Extraocular movements grossly intact. Moist buccal mucosa. Head is atraumatic, normocephalic. Hears conversational speech. No nasal drainage. NECK: Supple without lymphadenopathy. CHEST: Non-labored respirations and equal bilateral excursions. CARDIOVASCULAR: Palpable 2+ radial pulses. ABDOMEN: Soft. Obese. Nondistended. Tenderness to palpation epigastric quadrant MUSCULOSKELETAL: No clubbing or cyanosis. NEUROLOGIC: No focal or lateralizing signs. Cranial nerves II through XII grossly intact. PSYCH: Appropriate affect. Alert and oriented to person, place and time. SKIN: Well perfused. Good skin turgor. LABORATORY DATA: WBC 19 down to 12.1 hemoglobin routine 13.2 -11.8 plt 167 CBC today pending Sodium 141 potassium is 4.4 BUN 27 creatinine 0.67 Urine culture E. coli blood culture Staphylococcus epididymitis IMAGING: ASSESSMENT: 1. Acute GI bleed with bright red blood per rectum and blood clots 2. History of peptic ulcer disease 3. UTI with sepsis 4. Morbid obesity 5. Acute hypoxic respiratory failure 6. History of fibromyalgia 7. GERD 8. History of hypertension 9. Leukocytosis 10. Acute renal failure PLAN: -Patient scheduled for EGD with Dr. Zayas -Make patient nothing by mouth -Continue PPI -Continue IV fluids -Discontinue subcu heparin Thank you for this consultation Physician Chemical Lab Supervisor note has been reviewed by physician. Signing provider agrees with the documented findings, assessment, and plan of care. Past Medical History Past Medical History: Fibromyalgia, Hypertension Additional Past Medical History / Comment(s): chronic bronchitis, muscle spasms, UTI History of Any Multi-Drug Resistant Organisms: None Reported Past Surgical History: Hysterectomy, Orthopedic Surgery Past Psychological History: Anxiety, Depression Smoking Status: Never smoker Past Alcohol Use History: None Reported Past Drug Use History: None Reported Medications and Allergies Home Medications Medication Instructions Recorded Confirmed Type Amitriptyline HCl [Elavil] 50 - 100 mg PO HS 02/18/21 04/02/22 History Baclofen [Lioresal] 20 mg PO TID 02/18/21 04/02/22 History Diclofenac Sodium [Voltaren] 75 mg PO BID 02/18/21 04/02/22 History Furosemide [Lasix] 40 mg PO BID PRN 02/18/21 04/02/22 History Montelukast [Singulair] 10 mg PO DAILY 02/18/21 04/02/22 History Omeprazole 40 mg PO DAILY 02/18/21 04/02/22 History Pregabalin [Lyrica] 150 mg PO TID 02/18/21 04/02/22 History lisinopriL 30 mg PO DAILY 02/18/21 04/02/22 History predniSONE 10 mg PO DAILY PRN 02/18/21 04/02/22 History Cephalexin [Keflex] 500 mg PO Q8HR #21 cap 03/27/22 04/02/22 Rx Cyclobenzaprine [Flexeril] 10 mg PO TID PRN 03/27/22 04/02/22 History FLUoxetine HCL 40 mg PO DAILY 03/27/22 04/02/22 History Naproxen [EC-Naprosyn] 500 mg PO BID PRN 03/27/22 04/02/22 History hydrOXYzine HCL [Atarax] 25 mg PO TID PRN 03/27/22 04/02/22 History Allergies Allergy/AdvReac Type Severity Reaction Status Date / Time Penicillins Allergy Rash/Hives Verified 04/02/22 15:12 sulfamethoxazole Allergy Rash/Hives Verified 04/02/22 15:12 [From Bactrim] trimethoprim [From Bactrim] Allergy Rash/Hives Verified 04/02/22 15:12 Surgical - Exam Vital Signs Temp Pulse Resp BP Pulse Ox 97.5 F L 86 24 100/76 88 L 04/02/22 11:09 04/02/22 11:09 04/02/22 11:09 04/02/22 11:09 04/02/22 11:09 Results - Labs 04/06/22 06:38 04/06/22 06:38 Microbiology - Last 24 Hours (Table) 04/02/22 11:00 Blood Culture Gram Stain - Final Blood Blood Culture - Final Staph hominis sub sp. hominis
[2022-04-07] MEDS: predniSONE 10 MG TAB PO SCH (11:08)
[2022-04-07 11:20] LABS: HCT 35.6 % (34.0-46.0); HGB 11.3 gm/dL (11.4-16.0); Hypochromasia Marked; MCH 29.8 pg (25.0-35.0); MCHC 31.6 g/dL (31.0-37.0); MCV 94.1 fL (80.0-100.0); Mean Platelet Volume 9.1; Platelet Count 161 k/uL (150-450); RBC 3.78 m/uL (3.80-5.40); WBC 11.9 k/uL (3.8-10.6)
--- NOTE | 2022-04-07 13:38 | P.PN ---
Subjective Progress Note Date: 04/07/22 Principal diagnosis: E. coli sepsis and E. coli urinary tract infection This is a 66-year-old female with a known history of morbid obesity, bedridden, asthma, viral myalgia, hypertension, anxiety/depression, lifelong nonsmoker. On 03/27/2022 she was here in the emergency department with complaints of symptoms of urinary tract infection. She was found to have E. coli at that time and was treated with antibiotics. Currently the patient did not take her antibiotics due to issues with diarrhea. She was brought back into the emergency room earlier today with altered mental status respiratory distress and low blood pressure. She had been unable to take anything by mouth according to her family members are present at the bedside. White count 19.8. Hemoglobin 13.2. Sodium 139. Potassium 4.6. Chloride 98. Bicarb 24. BUN 85. Creatinine 2.37. AST 121. ALT 48. ProBNP 29. Urinalysis revealed dark brown turbid urine with large leukocyte esterase, greater than 182 WBCs. Many WBC clumps. Many bacteria. Urine drug screen was positive for tricyclic antidepressants and benzodiazepines. Computed tomography scan of the brain revealed age-related atrophic and chronic small vessel ischemic changes without acute intracranial process. Computed tomography scan of the chest revealed lungs are clear and free of infiltrate. Some mild basilar compressive atelectasis. Chronic elevation of the right hemidiaphragm. No pulmonary nodules or masses. CoVID screen was negative. RSV screen negative. Influenza screen negative. Serum alcohol less than 10. Arterial blood gases on 50% FiO2 revealed a PaO2 of 91, pCO2 52 and a pH of 7.33. She was placed on BiPAP 12/6 and 50% FiO2. She is seen today in consultation in the emergency department. She initially was unarousable however she did start to respond to painful stimuli. She is opening her eyes. She is obeying simple commands. He's been initiated on cefepime and vancomycin. She's received 2 L of fluid resuscitation. Normal saline at 100 ML's per hour. She is requiring norepinephrine at 0.1 mcg/kg/m. Progress note dated 04/06/2022.66-year-old female seen again in room 262. The patient is currently doing reasonably well. She is on 5 L nasal cannula. She did not use BiPAP last night. She's getting saline at 100 mL an hour. She is getting cefepime for Escherichia coli infection. Clinically, she appears much more stable. White count 12.1, hemoglobin 11.8, hematocrit 37.5, and platelet count normal. Sodium 141, potassium 4.4, chlorides 107, CO2 24, BUN 27, and creatinine 0.67. Patient was reevaluated today on 04/07/2022, patient was doing well as of yesterday on the regular medical floor, however this morning the patient had a sudden episode of large bloody bowel movement with large blood clot. Patient had no previous history of GI bleeding she is not on any nonsteroidal anti- inflammatory drugs. She does have history of peptic ulcer disease, has been on omeprazole. Last EGD was 5 years ago. Colonoscopy was just over 5 years ago. Patient had no previous history of diverticulitis. Considering the massive bleeding patient was transferred to the ICU. Blood pressure remained stable did not require any pressors or any fluids. Hemoglobin dropped from 11.8-11.3 this morning. Rest of the labs were unremarkable. During my evaluation to the patient in ICU, she had no active bleeding at that time. Did not require any blood products, general surgery was consulted, no GI coverage is available. Patient is scheduled to have EGD in the meantime she remains on PPI and she is off subcu heparin. Objective - Vital Signs Vital signs: Vital Signs Temp 99.1 F 04/07/22 12:00 Pulse 106 H 04/07/22 12:00 Resp 26 H 04/07/22 12:00 BP 116/74 04/07/22 12:00 Pulse Ox 96 04/07/22 12:00 FiO2 50 04/04/22 08:29 Intake & Output 04/06/22 04/07/22 04/07/22 18:59 06:59 18:59 Intake Total 1200 1300 330 Output Total 1020 935 150 Balance 180 365 180 Weight 200.72 kg Intake: IV 1200 1300 330 Cefepime 2 gm In Sodium 100 Chloride 0.9% 100 ml @ 25 mls/hr IVPB Q12H [facility] Rx# :[id number] Invasive Line 3 30 Sodium Chloride 0.9% 1, 1200 1200 300 000 ml @ 100 mls/hr IV . Q10H [facility] Rx#:[id number] Output: Urine 1020 935 150 Other: Voiding Method Indwelling Catheter - Exam GENERAL: Revealed a 66-year-old female, morbidly obese, in no distress. HEENT: PERRLA, EOMI, anicteric, chronic masses, no JVD, no stridor. Head atraumatic, normocephalic. NECK: Supple without lymphadenopathy. CHEST: Clear throughout no crackles or rhonchi or wheezes CARDIOVASCULAR: Distant S1 and S2, no S3 gallop, no murmur. ABDOMEN: Obese, soft, nontender, no megaly, no rebound, no guarding. MUSCULOSKELETAL: No deformities and no limitation in range of motion NEUROLOGIC: Alert and oriented 3 focal deficit PSYCH: Normal mood, affect and normal mental status examination SKIN: No rashes. - Labs CBC & Chem 7: 04/07/22 10:41 04/06/22 06:38 Labs: Abnormal Lab Results - Last 24 Hours (Table) 04/07/22 Range/Units 10:41 WBC 11.9 H (3.8-10.6) k/uL RBC 3.78 L (3.80-5.40) m/uL Hgb 11.3 L (11.4-16.0) gm/dL Microbiology - Last 24 Hours (Table) 04/02/22 11:00 Blood Culture Gram Stain - Final Blood Blood Culture - Final Staph hominis sub sp. hominis Assessment and Plan Assessment: Impression: Acute GI bleeding with bright red blood per rectum and blood clots. E. coli urinary tract infection with E. coli sepsis History of peptic ulcer disease. Morbid obesity. Benign essential hypertension Acute kidney injury History of GERD Generalized anxiety disorder and depression Recommendation: Continue antibiotics for her E. coli urinary tract infection Continue fluids Continue to monitor serial hemoglobins and transfuse for hemoglobin below 7 Continue PPIs Hold any anticoagulation treatment including subcu heparin Keep nothing by mouth, Consult surgery for possible EGD and colonoscopy We'll continue to monitor in the ICU. Prognosis is guarded. Time with Patient: Less than 30
[2022-04-07 14:17] LABS: HCT 34.2 % (34.0-46.0); HGB 10.8 gm/dL (11.4-16.0); Hypochromasia Moderate; MCH 29.6 pg (25.0-35.0); MCHC 31.7 g/dL (31.0-37.0); MCV 93.6 fL (80.0-100.0); Mean Platelet Volume 9.3; Platelet Count 165 k/uL (150-450); RBC 3.66 m/uL (3.80-5.40); RDW 14.4 % (11.5-15.5); WBC 14.9 k/uL (3.8-10.6)
[2022-04-07] MEDS: PANTOPRAZOLE 40 MG/10 ML VIAL IVP SCH (20:17)
[2022-04-07] MEDS: DOCUSATE 100 MG CAP PO SCH (20:17)
[2022-04-07] MEDS: QUEtiapine 25 MG TAB PO SCH (20:18)
--- NOTE | 2022-04-07 21:17 | P.PN ---
Subjective Progress Note Date: 04/07/22 This is a pleasant 66 years old female with past medical history off Fibromyalgia, Hypertension, chronic bronchitis, muscle spasms, UTI,Anxiety, Depression Patient desires because of fall on her left hip area with left hip pain. Patient is poor historian . Case was discussed with and emergency room physician Dr. Flower. Patient was recently diagnosed with UTI and she was placed on antibiotics, Keflex is one of her home medication. However patient was refusing to take medication for her UTI because of concern for diarrhea. Today she presents be cause of altered mental status and patient is poor historian. Patient at baseline and is bedbound, she has vague history of CHF and COPD but that comes with septic picture, she was dyspneic at home and she was placed on BiPAP first in the emergency room . Family were at bedside and discussed with Dr. Flower the wishes for the patient to be DO NOT INTUBATE but they're okay to start pressors was started on small dose of pressors and blood pressure improved up to 142/82. She is currently saturating 100% on BiPAP. Patient is afebrile. She has evidence of leukocytosis with WBC 19.8. Rest of CBC is unremarkable. INR is normal. PH is low at 7.3. Potassium 4.6, creatinine up at 2.3 liver enzymes mildly elevated, troponin is negative. Urinalysis is suspicious for infection. Urine toxicology is positive for tricyclic antidepressants and benzodiazepines. Serum alcohol less than 10. Influenza, RSV and cov undetected.id urine culture from 03/[address] of the chest without contrast showing mild bibasilar compressive atelectasis and/or parenchymal scarring. Chronic elevation of the right hemidiaphragm. CT of the brain: No acute process. EKG: Normal sinus rhythm at [address]-T changes. Chest x-ray: Patchy infiltrate right suprahilar region may reflect developing infiltrate Patient was started on cefepime and IV vancomycin ER. Patient has multiple drug ALLERGIES she missed a dose of antibiotic 04/03/2022 Patient is in the MICU. Patient is awake alert but lethargic and weak. Afebrile. Was admitted to hospital due to septic shock secondary to urinary tract infection and encephalopathy. Patient was requiring BiPAP with 50% FiO2. Currently on oxygen 6 L via nasal cannula. Patient is also on pressor support with Levophed. Current on antibiotics in the form of cefepime and vancomycin. Urine culture and blood cultures are pending. Blood cultures showed gram-positive cocci. Previous history of urinary tract infection with E. coli. No nausea vomiting or diarrhea. No cough or sputum production. Laboratory pressure WBC 16.8 hemoglobin 12.7 platelets 223 Sodium 143 potassium 6.0 chloride 105 BUN 68 and creatinine 1.58 04/04/2022 Patient is in the MICU. Lying in bed. Awake alert and oriented x3. Patient is lethargic and weak. Currently on oxygen via nasal cannula. Off pressor support. Blood cultures growing staph epidermis. Vancomycin has been discontinued and patient is being continued on cefepime. Urine culture showed gram-negative bacilli. Finalized report is pending. Patient has been afebrile. No nausea vomiting or abdominal pain or diarrhea. No cough or sputum production. Laboratory data showed WBC 13.5 hemoglobin 12.6 and platelets 176 Sodium 143 potassium 5.3 chloride 109 BUN 43 creatinine 0.81 04/05/2022 Patient is currently lying in bed. Awake alert and oriented x3. No complaints of chest pain or shortness of breath. No nausea vomiting abdominal pain or diarrhea. Patient is off pressor support. Continue antibiotics and follow cefepime and duo nebs. Patient is also on IV hydration with normal saline at hand-assisted brother. Laboratory data showed WBC 13.4 hemoglobin 12.0 and platelets 172 Sodium 140 potassium 5.0 chloride 106 bicarb is 21 BUN 36 and creatinine 0.62. Liver enzymes are trending down. Urine culture showed E. coli and blood cultures showed staph epidermis. Pulmonary and ID is on board. 04/07/2022 Patient was transferred back to ICU this morning. She was improving and was hemodynamically stable yesterday. Today morning she did have a large maroon-colored bowel movement and large blood clot. Patient was suspected to have acute GI bleed with history of peptic ulcer disease and has been on omeprazole. Denies any active bleeding currently. Denies any complaints of abdominal pain. Patient was transferred to MICU. Currently blood pressure is stable. Slightly tachycardic with heart rate 101. Repeat hemoglobin level is 11.3 and 10.8. General surgery was consulted and patient is scheduled for EGD and will be Continued on Protonix IV twice daily. Other laboratory showed WBC 11.9 platelets 161. Current medications reviewed. Objective - Vital Signs Vital signs: Vital Signs Temp 97.9 F 04/07/22 20:00 Pulse 101 H 04/07/22 21:06 Resp 26 H 04/07/22 21:00 BP 131/74 04/07/22 21:00 Pulse Ox 93 L 04/07/22 21:00 FiO2 50 04/04/22 08:29 Intake & Output 04/07/22 04/07/22 04/08/22 06:59 18:59 06:59 Intake Total 1300 1270 300 Output Total 935 510 175 Balance 365 760 125 Weight 200.72 kg Intake: IV 1300 1030 300 Cefepime 2 gm In Sodium 100 100 Chloride 0.9% 100 ml @ 25 mls/hr IVPB Q12H [facility] Rx# :[id number] Invasive Line 3 30 Sodium Chloride 0.9% 1, 1200 900 300 000 ml @ 100 mls/hr IV . Q10H [facility] Rx#:[id number] Oral 240 Output: Urine 935 510 175 Other: Voiding Method Indwelling Catheter Indwelling Catheter Indwelling Catheter - Exam --GENERAL: The patient is currently on BiPAP looks confused and cannot provide information, obese HEENT: Pupils are round and equally reacting to light. EOMI. No scleral icterus. No conjunctival pallor. Normocephalic, atraumatic. No pharyngeal erythema. No thyromegaly. CARDIOVASCULAR: S1 and S2 present. No murmurs, rubs, or gallops. PULMONARY: Chest is clear to auscultation, no wheezing or crackles. ABDOMEN: Soft, nontender, nondistended, normoactive bowel sounds. No palpable organomegaly. MUSCULOSKELETAL: No joint swelling or deformity. EXTREMITIES: No cyanosis, clubbing, or pedal edema. NEUROLOGICAL: Gross neurological examination did not reveal any focal deficits. SKIN: No rashes. no petechiae. - Labs CBC & Chem 7: 04/07/22 14:05 04/06/22 06:38 Labs: Abnormal Lab Results - Last 24 Hours (Table) 04/07/22 04/07/22 Range/Units 10:41 14:05 WBC 11.9 H 14.9 H (3.8-10.6) k/uL RBC 3.78 L 3.66 L (3.80-5.40) m/uL Hgb 11.3 L 10.8 L (11.4-16.0) gm/dL Microbiology - Last 24 Hours (Table) 04/02/22 11:00 Blood Culture Gram Stain - Final Blood Blood Culture - Final Staph hominis sub sp. hominis Assessment and Plan Assessment: Large maroon-colored bowel movement likely to GI bleed possible upper GI. Septic shock secondary to acute urinary tract infection requiring pressor support. off pressors now. Metabolic/toxic encephalopathy. improved. Acute urinary tract infection, culture from previous sample growing E. coli Nonadherence to treatment as an outpatient for her UTI Acute kidney injury likely prerenal. Metabolic acidosis Mild COPD exacerbation Morbid obesity with BMI of 62.0 DVT prophylaxis with heparin subcu Plan: Changed Protonix to IV twice daily. Monitor H&H.General surgery is planning for EGD. Continue with antibiotic currently on cefepime and IV vancomycin dced Urine culture showed E coli and blood culture showed staph epi. off Levophed. Critical care team on board. Patient was on BiPAP and currently titrated down to oxygen 6 L via nasal cannula. Monitor mental status continue with IV steroids and duo nebs. DVT and GI prophylaxis. Further recommendations as per clinical course of the patient DVT prophylaxis: Subcutaneous heparin GI Prophylaxis: Pepcid Prognosis is guarded Time with Patient: Greater than 30
--- NOTE | 2022-04-07 23:33 | P.PN ---
Subjective Progress Note Date: 04/06/22 This is a pleasant 66 years old female with past medical history off Fibromyalgia, Hypertension, chronic bronchitis, muscle spasms, UTI,Anxiety, Depression Patient desires because of fall on her left hip area with left hip pain. Patient is poor historian . Case was discussed with and emergency room physician Dr. Flower. Patient was recently diagnosed with UTI and she was placed on antibiotics, Keflex is one of her home medication. However patient was refusing to take medication for her UTI because of concern for diarrhea. Today she presents be cause of altered mental status and patient is poor historian. Patient at baseline and is bedbound, she has vague history of CHF and COPD but that comes with septic picture, she was dyspneic at home and she was placed on BiPAP first in the emergency room . Family were at bedside and discussed with Dr. Flower the wishes for the patient to be DO NOT INTUBATE but they're okay to start pressors was started on small dose of pressors and blood pressure improved up to 142/82. She is currently saturating 100% on BiPAP. Patient is afebrile. She has evidence of leukocytosis with WBC 19.8. Rest of CBC is unremarkable. INR is normal. PH is low at 7.3. Potassium 4.6, creatinine up at 2.3 liver enzymes mildly elevated, troponin is negative. Urinalysis is suspicious for infection. Urine toxicology is positive for tricyclic antidepressants and benzodiazepines. Serum alcohol less than 10. Influenza, RSV and cov undetected.id urine culture from 03/[address] of the chest without contrast showing mild bibasilar compressive atelectasis and/or parenchymal scarring. Chronic elevation of the right hemidiaphragm. CT of the brain: No acute process. EKG: Normal sinus rhythm at [address]-T changes. Chest x-ray: Patchy infiltrate right suprahilar region may reflect developing infiltrate Patient was started on cefepime and IV vancomycin ER. Patient has multiple drug ALLERGIES she missed a dose of antibiotic 04/03/2022 Patient is in the MICU. Patient is awake alert but lethargic and weak. Afebrile. Was admitted to hospital due to septic shock secondary to urinary tract infection and encephalopathy. Patient was requiring BiPAP with 50% FiO2. Currently on oxygen 6 L via nasal cannula. Patient is also on pressor support with Levophed. Current on antibiotics in the form of cefepime and vancomycin. Urine culture and blood cultures are pending. Blood cultures showed gram-positive cocci. Previous history of urinary tract infection with E. coli. No nausea vomiting or diarrhea. No cough or sputum production. Laboratory pressure WBC 16.8 hemoglobin 12.7 platelets 223 Sodium 143 potassium 6.0 chloride 105 BUN 68 and creatinine 1.58 04/04/2022 Patient is in the MICU. Lying in bed. Awake alert and oriented x3. Patient is lethargic and weak. Currently on oxygen via nasal cannula. Off pressor support. Blood cultures growing staph epidermis. Vancomycin has been discontinued and patient is being continued on cefepime. Urine culture showed gram-negative bacilli. Finalized report is pending. Patient has been afebrile. No nausea vomiting or abdominal pain or diarrhea. No cough or sputum production. Laboratory data showed WBC 13.5 hemoglobin 12.6 and platelets 176 Sodium 143 potassium 5.3 chloride 109 BUN 43 creatinine 0.81 04/05/2022 Patient is currently lying in bed. Awake alert and oriented x3. No complaints of chest pain or shortness of breath. No nausea vomiting abdominal pain or diarrhea. Patient is off pressor support. Continue antibiotics and follow cefepime and duo nebs. Patient is also on IV hydration with normal saline at hand-assisted brother. Laboratory data showed WBC 13.4 hemoglobin 12.0 and platelets 172 Sodium 140 potassium 5.0 chloride 106 bicarb is 21 BUN 36 and creatinine 0.62. Liver enzymes are trending down. Urine culture showed E. coli and blood cultures showed staph epidermis. Pulmonary and ID is on board. 04/06/2022 Patient is currently MICU. Awake alert oriented x3. Requiring 5 L oxygen via nasal cannula. Breathing status is improving. Patient is also receiving antibiotics at home Ceftin for E. coli urinary tract infection. No fever no chills. No nausea vomiting abdominal pain or diarrhea. Tolerating minimal oral intake. Patient is being transferred to medical floor today. Laboratory pressure WBC 12.1 hemoglobin 11.8 and platelets 167 Sodium 141 potassium 4.4 chloride 107 bicarbonate 24 BUN 27 creatinine 0.67 Current medications reviewed. Objective - Vital Signs Vital signs: Vital Signs Temp 99.5 F 04/06/22 14:00 Pulse 109 H 04/06/22 15:42 Resp 27 H 04/06/22 14:00 BP 132/86 04/06/22 14:00 Pulse Ox 94 L 04/06/22 15:32 FiO2 50 04/04/22 08:29 Intake & Output 04/05/22 04/06/22 04/06/22 19:59 06:59 18:59 Intake Total 1200 Output Total 1020 Balance 180 Weight Intake: IV 1200 Sodium Chloride 0.9% 1, 1200 000 ml @ 100 mls/hr IV . Q10H [facility] Rx#:[id number] Output: Urine 1020 Other: Voiding Method # Bowel Movements - Exam --GENERAL: The patient is currently on BiPAP looks confused and cannot provide information, obese HEENT: Pupils are round and equally reacting to light. EOMI. No scleral icterus. No conjunctival pallor. Normocephalic, atraumatic. No pharyngeal erythema. No thyromegaly. CARDIOVASCULAR: S1 and S2 present. No murmurs, rubs, or gallops. PULMONARY: Chest is clear to auscultation, no wheezing or crackles. ABDOMEN: Soft, nontender, nondistended, normoactive bowel sounds. No palpable organomegaly. MUSCULOSKELETAL: No joint swelling or deformity. EXTREMITIES: No cyanosis, clubbing, or pedal edema. NEUROLOGICAL: Gross neurological examination did not reveal any focal deficits. SKIN: No rashes. no petechiae. - Labs CBC & Chem 7: 04/07/22 14:05 04/06/22 06:38 Labs: Abnormal Lab Results - Last 24 Hours (Table) 04/06/22 04/06/22 Range/Units 06:38 06:38 WBC 12.1 H (3.8-10.6) k/uL Neutrophils # 9.2 H (1.3-7.7) k/uL BUN 27 H (7-17) mg/dL Assessment and Plan Assessment: Septic shock secondary to acute urinary tract infection requiring pressor support. off pressors now. Metabolic/toxic encephalopathy. improved. Acute urinary tract infection, culture from previous sample growing E. coli Nonadherence to treatment as an outpatient for her UTI Acute kidney injury likely prerenal. Metabolic acidosis Mild COPD exacerbation Morbid obesity with BMI of 62.0 DVT prophylaxis with heparin subcu Plan: Continue with antibiotic currently on cefepime and IV vancomycin dced Urine culture showed gram-negative bacilli and blood culture showed staph epi. awaiting final culture report. off Levophed. Critical care team on board. Patient was on BiPAP and currently titrated down to oxygen 6 L via nasal cannula. Monitor mental status continue with prednisone and duo nebs. DVT and GI prophylaxis. Further recommendations as per clinical course of the patient DVT prophylaxis: Subcutaneous heparin GI Prophylaxis: Pepcid Prognosis is guarded Time with Patient: Greater than 30
[2022-04-08] MEDS: IPRATROPIUM-ALBUTEROL 3 ML NEB INHALATION SCH ×7 (00:04→23:36)
[2022-04-08] MEDS: CEFEPIME 2 GM in SODIUM CHLORIDE 0.9% 100 ML IVPB SCH ×2 (02:58→15:47)
[2022-04-08 06:41] LABS: Basophils # (A) 0.1 k/uL (0-0.2); Basophils % (A) 1 %; Eosinophils # (A) 0.5 k/uL (0-0.7); Eosinophils % (A) 4 %; HGB 10.1 gm/dL (11.4-16.0); Hypochromasia Slight; Lymphocytes # (A) 1.6 k/uL (1.0-4.8); Lymphocytes % (A) 14 %; MCH 30.3 pg (25.0-35.0); MCHC 32.6 g/dL (31.0-37.0); MCV 92.7 fL (80.0-100.0); Mean Platelet Volume 9.5; Monocytes # (A) 0.7 k/uL (0-1.0); Monocytes % (A) 6 %; Neutrophils # (A) 8.6 k/uL (1.3-7.7); Neutrophils % (A) 73 %; Platelet Count 158 k/uL (150-450); RBC 3.34 m/uL (3.80-5.40); WBC 11.7 k/uL (3.8-10.6)
[2022-04-08 07:10] LABS: African American GFR (CKD) >90 (>60 ml/min/1.73 sqM); Anion Gap 4 mmol/L; Blood Urea Nitrogen 18 mg/dL (7-17); Calcium 8.7 mg/dL (8.4-10.2); Carbon Dioxide 25 mmol/L (22-30); Chloride 108 mmol/L (98-107); Glucose 104 mg/dL (74-99); Non-African American GFR(CKD) >90 (>60 ml/min/1.73 sqM); Potassium 3.8 mmol/L (3.5-5.1); Sodium 137 mmol/L (137-145)
[2022-04-08 07:42] LABS: Glucose,Whole Blood 107 mg/dL (70-110)
[2022-04-08] MEDS: predniSONE 10 MG TAB PO SCH (09:25)
[2022-04-08] MEDS: PANTOPRAZOLE 40 MG/10 ML VIAL IVP SCH ×2 (09:25→21:11)
[2022-04-08] MEDS ORDERED: PEG 3350 (420 GM/BTL) + LYTES 4,000 ML BOTTLE PO ONE (09:36)
--- NOTE | 2022-04-08 12:14 | P.PN ---
Subjective Progress Note Date: 04/08/22 Principal diagnosis: E. coli sepsis and E. coli urinary tract infection This is a 66-year-old female with a known history of morbid obesity, bedridden, asthma, viral myalgia, hypertension, anxiety/depression, lifelong nonsmoker. On 03/27/2022 she was here in the emergency department with complaints of symptoms of urinary tract infection. She was found to have E. coli at that time and was treated with antibiotics. Currently the patient did not take her antibiotics due to issues with diarrhea. She was brought back into the emergency room earlier today with altered mental status respiratory distress and low blood pressure. She had been unable to take anything by mouth according to her family members are present at the bedside. White count 19.8. Hemoglobin 13.2. Sodium 139. Potassium 4.6. Chloride 98. Bicarb 24. BUN 85. Creatinine 2.37. AST 121. ALT 48. ProBNP 29. Urinalysis revealed dark brown turbid urine with large leukocyte esterase, greater than 182 WBCs. Many WBC clumps. Many bacteria. Urine drug screen was positive for tricyclic antidepressants and benzodiazepines. Computed tomography scan of the brain revealed age-related atrophic and chronic small vessel ischemic changes without acute intracranial process. Computed tomography scan of the chest revealed lungs are clear and free of infiltrate. Some mild basilar compressive atelectasis. Chronic elevation of the right hemidiaphragm. No pulmonary nodules or masses. CoVID screen was negative. RSV screen negative. Influenza screen negative. Serum alcohol less than 10. Arterial blood gases on 50% FiO2 revealed a PaO2 of 91, pCO2 52 and a pH of 7.33. She was placed on BiPAP 12/6 and 50% FiO2. She is seen today in consultation in the emergency department. She initially was unarousable however she did start to respond to painful stimuli. She is opening her eyes. She is obeying simple commands. He's been initiated on cefepime and vancomycin. She's received 2 L of fluid resuscitation. Normal saline at 100 ML's per hour. She is requiring norepinephrine at 0.1 mcg/kg/m. Progress note dated 04/06/2022.66-year-old female seen again in room 262. The patient is currently doing reasonably well. She is on 5 L nasal cannula. She did not use BiPAP last night. She's getting saline at 100 mL an hour. She is getting cefepime for Escherichia coli infection. Clinically, she appears much more stable. White count 12.1, hemoglobin 11.8, hematocrit 37.5, and platelet count normal. Sodium 141, potassium 4.4, chlorides 107, CO2 24, BUN 27, and creatinine 0.67. Patient was reevaluated today on 04/07/2022, patient was doing well as of yesterday on the regular medical floor, however this morning the patient had a sudden episode of large bloody bowel movement with large blood clot. Patient had no previous history of GI bleeding she is not on any nonsteroidal anti- inflammatory drugs. She does have history of peptic ulcer disease, has been on omeprazole. Last EGD was 5 years ago. Colonoscopy was just over 5 years ago. Patient had no previous history of diverticulitis. Considering the massive bleeding patient was transferred to the ICU. Blood pressure remained stable did not require any pressors or any fluids. Hemoglobin dropped from 11.8-11.3 this morning. Rest of the labs were unremarkable. During my evaluation to the patient in ICU, she had no active bleeding at that time. Did not require any blood products, general surgery was consulted, no GI coverage is available. Patient is scheduled to have EGD in the meantime she remains on PPI and she is off subcu heparin. Reevaluated today on 04/08/2022, patient was transferred yesterday to the ICU mostly because of acute onset of lower GI bleeding. Patient had no further bleeding, did not require any blood transfusion. Patient is scheduled to undergo EGD and colonoscopy today. Overall the patient is doing much better today, she has no cough no wheezing no shortness of breath no chest pain, no nausea no vomiting no abdominal pain. Her WBC normal. Electrolytes are normal and renal profile is normal. Patient is hemodynamically stable, and she is slightly tachycardic with a heart rate of 105. O2 saturations 92% on 4 L nasal cannula. Objective - Vital Signs Vital signs: Vital Signs Temp 98.6 F 04/08/22 08:00 Pulse 105 H 04/08/22 11:00 Resp 23 04/08/22 11:00 BP 129/74 04/08/22 11:00 Pulse Ox 92 L 04/08/22 11:00 FiO2 50 04/04/22 08:29 Intake & Output 04/07/22 04/08/22 04/08/22 18:59 06:59 18:59 Intake Total 1270 1300 880 Output Total 510 645 220 Balance 760 655 660 Intake: IV 1030 1300 400 Cefepime 2 gm In Sodium 100 100 Chloride 0.9% 100 ml @ 25 mls/hr IVPB Q12H [facility] Rx# :[id number] Invasive Line 3 30 Sodium Chloride 0.9% 1, 900 1200 400 000 ml @ 100 mls/hr IV . Q10H [facility] Rx#:[id number] Oral 240 480 Output: Urine 510 645 220 Other: Voiding Method Indwelling Catheter Indwelling Catheter Indwelling Catheter - Exam GENERAL: Revealed a 66-year-old female, morbidly obese, in no distress. HEENT: PERRLA, EOMI, anicteric, chronic masses, no JVD, no stridor. Head atraumatic, normocephalic. NECK: Supple without lymphadenopathy. CHEST: Clear throughout no crackles or rhonchi or wheezes CARDIOVASCULAR: Distant S1 and S2, no S3 gallop, no murmur. ABDOMEN: Obese, soft, nontender, no megaly, no rebound, no guarding. MUSCULOSKELETAL: No deformities and no limitation in range of motion NEUROLOGIC: Alert and oriented 3 focal deficit PSYCH: Normal mood, affect and normal mental status examination SKIN: No rashes. - Labs CBC & Chem 7: 04/08/22 06:30 04/08/22 06:30 Labs: Abnormal Lab Results - Last 24 Hours (Table) 04/07/22 04/08/22 04/08/22 Range/Units 14:05 06:30 06:30 WBC 14.9 H 11.7 H (3.8-10.6) k/uL RBC 3.66 L 3.34 L (3.80-5.40) m/uL Hgb 10.8 L 10.1 L (11.4-16.0) gm/dL Hct 31.0 L (34.0-46.0) % Neutrophils # 8.6 H (1.3-7.7) k/uL Chloride 108 H (98-107) mmol/L BUN 18 H (7-17) mg/dL Glucose 104 H (74-99) mg/dL Microbiology - Last 24 Hours (Table) 04/02/22 11:00 Blood Culture Gram Stain - Final Blood Blood Culture - Final Staph hominis sub sp. hominis Assessment and Plan Assessment: Impression: Acute GI bleeding with bright red blood per rectum and blood clots. E. coli urinary tract infection with E. coli sepsis History of peptic ulcer disease. Morbid obesity. Benign essential hypertension Acute kidney injury History of GERD Generalized anxiety disorder and depression Recommendation: Agree with EGD and colonoscopy scheduled to be done today by general surgery. Continue antibiotics for her E. coli urinary tract infection Continue fluids Continue to monitor serial hemoglobins and transfuse for hemoglobin below 7 Continue PPIs We'll continue to monitor in the ICU. Prognosis is guarded. Time with Patient: Less than 30
[2022-04-08] MEDS ORDERED: LACTULOSE 20 GM/30 ML CUP PO ONE (15:30)
[2022-04-08] MEDS ORDERED: MAGNESIUM HYDROXIDE 2,400 MG/10 ML CUP PO ONE (15:31)
--- NOTE | 2022-04-08 16:00 | P.PN ---
Subjective Progress Note Date: 04/08/22 CHIEF COMPLAINT: GI bleed HISTORY OF PRESENT ILLNESS: Patient to the hospital UTI and sepsis. Surgical ser vice following regards patient's GI bleed. She has had no further bleeding. Hemoglobin staying stable at 10.1. Patient has started her bowel prep. She is only drink small amounts. She will likely require more than 1 day to do bowel prep. She denies any abdominal pain. Denies any nausea or vomiting. Afebrile. Heart rate 101. WBC is down from 14.9-11.7 Hgb 10.1. She did have a drop of hemoglobin from 11.3-10.8 yesterday creatinine 0.56 potassium 3.8 PHYSICAL EXAM: VITAL SIGNS: Reviewed GENERAL: Well-developed in no acute distress. HEENT: No sclera icterus. Extraocular movements grossly intact. Moist buccal mucosa. Head is atraumatic, normocephalic. Hears conversational speech. No nasal drainage. NECK: Supple without lymphadenopathy. CHEST: Non-labored respirations and equal bilateral excursions. CARDIOVASCULAR: Palpable 2+ radial pulses. ABDOMEN: Soft. obese. Nondistended. Nontender. MUSCULOSKELETAL: No clubbing or cyanosis. NEUROLOGIC: No focal or lateralizing signs. Cranial nerves II through XII grossly intact. PSYCH: Appropriate affect. Alert and oriented to person, place and time. SKIN: Well perfused. Good skin turgor. ASSESSMENT: 1. Acute GI bleed with bright red blood per rectum and blood clots 2. History of peptic ulcer disease 3. UTI with sepsis 4. Morbid obesity 5. Acute hypoxic respiratory failure 6. History of fibromyalgia 7. GERD 8. History of hypertension 9. Leukocytosis 10. Acute renal failure PLAN: -Patient scheduled for EGD and colonoscopy on , 04/10/2022 -Continue clear liquid diet -Continue bowel prep. Will give patient 2 days to complete bowel prep -Lactulose and milk of magnesia given to help stimulate bowel movement -Continue to monitor for any signs or symptoms of bleeding -Continue PPI -Continue IV fluids Physician Patient Carrier note has been reviewed by physician. Signing provider agrees with the documented findings, assessment, and plan of care. Objective - Vital Signs Vital signs: Vital Signs Temp 98.2 F 04/08/22 12:00 Pulse 101 H 04/08/22 15:14 Resp 23 04/08/22 15:00 BP 131/65 11/08/22 15:00 Pulse Ox 94 L 04/08/22 15:00 FiO2 50 04/04/22 08:29 Intake & Output 04/07/22 04/08/22 04/08/22 18:59 06:59 18:59 Intake Total 1270 1300 1860 Output Total 510 645 545 Balance 591 087 4311 Intake: IV 1030 1300 900 Cefepime 2 gm In Sodium 100 100 Chloride 0.9% 100 ml @ 25 mls/hr IVPB Q12H [facility] Rx# :[id number] Invasive Line 3 30 Sodium Chloride 0.9% 1, 900 1200 900 000 ml @ 100 mls/hr IV . Q10H [facility] Rx#:[id number] Oral 240 960 Output: Urine 510 645 545 Other: Voiding Method Indwelling Catheter Indwelling Catheter Indwelling Catheter - Labs CBC & Chem 7: 04/08/22 06:30 04/08/22 06:30 Labs: Abnormal Lab Results - Last 24 Hours (Table) 04/08/22 04/08/22 Range/Units 06:30 06:30 WBC 11.7 H (3.8-10.6) k/uL RBC 3.34 L (3.80-5.40) m/uL Hgb 10.1 L (11.4-16.0) gm/dL Hct 31.0 L (34.0-46.0) % Neutrophils # 8.6 H (1.3-7.7) k/uL Chloride 108 H (98-107) mmol/L BUN 18 H (7-17) mg/dL Glucose 104 H (74-99) mg/dL
[2022-04-08] MEDS: SODIUM CHLORIDE 0.9% 1,000 ML IV SCH ×3 (16:02→23:25)
[2022-04-08 18:36] LABS: HCT 33.5 % (34.0-46.0); HGB 10.5 gm/dL (11.4-16.0); Hypochromasia Slight; MCH 29.1 pg (25.0-35.0); MCHC 31.3 g/dL (31.0-37.0); Mean Platelet Volume 9.5; Platelet Count 184 k/uL (150-450); RDW 14.4 % (11.5-15.5); WBC 15.7 k/uL (3.8-10.6)
[2022-04-08] MEDS: DOCUSATE 100 MG CAP PO SCH (21:10)
[2022-04-08] MEDS: QUEtiapine 25 MG TAB PO SCH (21:10)
[2022-04-08] MEDS: HALOPERIDOL LACTATE 5 MG/ML 1 ML VIAL IVP PRN (23:27)
[2022-04-09 00:36] LABS: HCT 30.7 % (34.0-46.0); HGB 10.1 gm/dL (11.4-16.0); Hypochromasia Moderate; MCH 30.9 pg (25.0-35.0); MCV 93.8 fL (80.0-100.0); Mean Platelet Volume 9.2; Platelet Count 171 k/uL (150-450); RBC 3.27 m/uL (3.80-5.40); RDW 14.2 % (11.5-15.5); WBC 15.5 k/uL (3.8-10.6)
[2022-04-09] MEDS: CEFEPIME 2 GM in SODIUM CHLORIDE 0.9% 100 ML IVPB SCH ×2 (02:30→16:56)
[2022-04-09] MEDS: IPRATROPIUM-ALBUTEROL 3 ML NEB INHALATION SCH ×6 (03:11→23:32)
[2022-04-09 06:22] LABS: Glucose,Whole Blood 95 mg/dL (70-110)
[2022-04-09 09:07] LABS: HCT 32.3 % (34.0-46.0); HGB 10.2 gm/dL (11.4-16.0); Hypochromasia Marked; MCH 29.9 pg (25.0-35.0); MCHC 31.6 g/dL (31.0-37.0); MCV 94.5 fL (80.0-100.0); Mean Platelet Volume 8.8; Platelet Count 167 k/uL (150-450); RBC 3.42 m/uL (3.80-5.40); RDW 14.2 % (11.5-15.5); WBC 13.4 k/uL (3.8-10.6)
[2022-04-09 09:12] LABS: ALT 131 U/L (4-34); AST 76 U/L (14-36); African American GFR (CKD) >90 (>60 ml/min/1.73 sqM); Albumin 3.4 g/dL (3.5-5.0); Alkaline Phosphatase 76 U/L (38-126); Anion Gap 7 mmol/L; Blood Urea Nitrogen 15 mg/dL (7-17); Carbon Dioxide 23 mmol/L (22-30); Chloride 107 mmol/L (98-107); Glucose 102 mg/dL (74-99); Non-African American GFR(CKD) >90 (>60 ml/min/1.73 sqM); Potassium 3.9 mmol/L (3.5-5.1); Sodium 137 mmol/L (137-145); Total Bilirubin 0.8 mg/dL (0.2-1.3); Total Protein 6.1 g/dL (6.3-8.2)
[2022-04-09] MEDS: PANTOPRAZOLE 40 MG/10 ML VIAL IVP SCH ×2 (10:01→22:13)
[2022-04-09] MEDS: predniSONE 10 MG TAB PO SCH (10:01)
--- NOTE | 2022-04-09 10:14 | P.PN ---
Subjective Progress Note Date: 04/08/22 This is a pleasant 66 years old female with past medical history off Fibromyalgia, Hypertension, chronic bronchitis, muscle spasms, UTI,Anxiety, Depression Patient desires because of fall on her left hip area with left hip pain. Patient is poor historian . Case was discussed with and emergency room physician Dr. Flower. Patient was recently diagnosed with UTI and she was placed on antibiotics, Keflex is one of her home medication. However patient was refusing to take medication for her UTI because of concern for diarrhea. Today she presents be cause of altered mental status and patient is poor historian. Patient at baseline and is bedbound, she has vague history of CHF and COPD but that comes with septic picture, she was dyspneic at home and she was placed on BiPAP first in the emergency room . Family were at bedside and discussed with Dr. Flower the wishes for the patient to be DO NOT INTUBATE but they're okay to start pressors was started on small dose of pressors and blood pressure improved up to 142/82. She is currently saturating 100% on BiPAP. Patient is afebrile. She has evidence of leukocytosis with WBC 19.8. Rest of CBC is unremarkable. INR is normal. PH is low at 7.3. Potassium 4.6, creatinine up at 2.3 liver enzymes mildly elevated, troponin is negative. Urinalysis is suspicious for infection. Urine toxicology is positive for tricyclic antidepressants and benzodiazepines. Serum alcohol less than 10. Influenza, RSV and cov undetected.id urine culture from 03/[address] of the chest without contrast showing mild bibasilar compressive atelectasis and/or parenchymal scarring. Chronic elevation of the right hemidiaphragm. CT of the brain: No acute process. EKG: Normal sinus rhythm at [address]-T changes. Chest x-ray: Patchy infiltrate right suprahilar region may reflect developing infiltrate Patient was started on cefepime and IV vancomycin ER. Patient has multiple drug ALLERGIES she missed a dose of antibiotic 04/03/2022 Patient is in the MICU. Patient is awake alert but lethargic and weak. Afebrile. Was admitted to hospital due to septic shock secondary to urinary tract infection and encephalopathy. Patient was requiring BiPAP with 50% FiO2. Currently on oxygen 6 L via nasal cannula. Patient is also on pressor support with Levophed. Current on antibiotics in the form of cefepime and vancomycin. Urine culture and blood cultures are pending. Blood cultures showed gram-positive cocci. Previous history of urinary tract infection with E. coli. No nausea vomiting or diarrhea. No cough or sputum production. Laboratory pressure WBC 16.8 hemoglobin 12.7 platelets 223 Sodium 143 potassium 6.0 chloride 105 BUN 68 and creatinine 1.58 04/04/2022 Patient is in the MICU. Lying in bed. Awake alert and oriented x3. Patient is lethargic and weak. Currently on oxygen via nasal cannula. Off pressor support. Blood cultures growing staph epidermis. Vancomycin has been discontinued and patient is being continued on cefepime. Urine culture showed gram-negative bacilli. Finalized report is pending. Patient has been afebrile. No nausea vomiting or abdominal pain or diarrhea. No cough or sputum production. Laboratory data showed WBC 13.5 hemoglobin 12.6 and platelets 176 Sodium 143 potassium 5.3 chloride 109 BUN 43 creatinine 0.81 04/05/2022 Patient is currently lying in bed. Awake alert and oriented x3. No complaints of chest pain or shortness of breath. No nausea vomiting abdominal pain or diarrhea. Patient is off pressor support. Continue antibiotics and follow cefepime and duo nebs. Patient is also on IV hydration with normal saline at hand-assisted brother. Laboratory data showed WBC 13.4 hemoglobin 12.0 and platelets 172 Sodium 140 potassium 5.0 chloride 106 bicarb is 21 BUN 36 and creatinine 0.62. Liver enzymes are trending down. Urine culture showed E. coli and blood cultures showed staph epidermis. Pulmonary and ID is on board. 04/07/2022 Patient was transferred back to ICU this morning. She was improving and was hemodynamically stable yesterday. Today morning she did have a large maroon-colored bowel movement and large blood clot. Patient was suspected to have acute GI bleed with history of peptic ulcer disease and has been on omeprazole. Denies any active bleeding currently. Denies any complaints of abdominal pain. Patient was transferred to MICU. Currently blood pressure is stable. Slightly tachycardic with heart rate 101. Repeat hemoglobin level is 11.3 and 10.8. General surgery was consulted and patient is scheduled for EGD and will be Continued on Protonix IV twice daily. Other laboratory showed WBC 11.9 platelets 161. 04/08/2022 Patient is in MICU. Less than the benefit awake alert and oriented 3. No complaints of abdominal pain. Denied any further episodes of blood clots per rectum. No nausea vomiting or diarrhea. No cough or sputum production. Patient has been afebrile. Continued on IV Protonix. Laboratory data showed WBC 15.7 hemoglobin 10.5 and platelets 184. General surgery is planned for colonoscopy and EGD tomorrow. Otherwise patient is being continued on antibiotics, cefepime for E. coli urinary tract infection/septic shock. Current medications reviewed. Objective - Vital Signs Vital signs: Vital Signs Temp 98.6 F 04/08/22 16:00 Pulse 98 04/08/22 19:00 Resp 23 04/08/22 19:00 BP 156/74 04/08/22 19:00 Pulse Ox 93 L 04/08/22 19:00 FiO2 50 04/04/22 08:29 Intake & Output 04/08/22 04/08/22 04/09/22 06:59 18:59 06:59 Intake Total 1300 3060 40 Output Total 645 705 50 Balance 655 2355 -10 Intake: IV 1300 1140 40 Cefepime 2 gm In Sodium 100 100 Chloride 0.9% 100 ml @ 25 mls/hr IVPB Q12H [facility] Rx# :[id number] Sodium Chloride 0.9% 1, 1200 1040 40 000 ml @ 100 mls/hr IV . Q10H [facility] Rx#:[id number] Oral 1920 Output: Urine 645 705 50 Other: Voiding Method Indwelling Catheter Indwelling Catheter - Exam --GENERAL: The patient is currently on BiPAP looks confused and cannot provide information, obese HEENT: Pupils are round and equally reacting to light. EOMI. No scleral icterus. No conjunctival pallor. Normocephalic, atraumatic. No pharyngeal erythema. No thyromegaly. CARDIOVASCULAR: S1 and S2 present. No murmurs, rubs, or gallops. PULMONARY: Chest is clear to auscultation, no wheezing or crackles. ABDOMEN: Soft, nontender, nondistended, normoactive bowel sounds. No palpable organomegaly. MUSCULOSKELETAL: No joint swelling or deformity. EXTREMITIES: No cyanosis, clubbing, or pedal edema. NEUROLOGICAL: Gross neurological examination did not reveal any focal deficits. SKIN: No rashes. no petechiae. - Labs CBC & Chem 7: 04/09/22 08:32 04/09/22 08:32 Labs: Abnormal Lab Results - Last 24 Hours (Table) 04/08/22 04/08/22 04/08/22 Range/Units 06:30 06:30 18:06 WBC 11.7 H 15.7 H (3.8-10.6) k/uL RBC 3.34 L 3.60 L (3.80-5.40) m/uL Hgb 10.1 L 10.5 L (11.4-16.0) gm/dL Hct 31.0 L 33.5 L (34.0-46.0) % Neutrophils # 8.6 H (1.3-7.7) k/uL Chloride 108 H (98-107) mmol/L BUN 18 H (7-17) mg/dL Glucose 104 H (74-99) mg/dL Assessment and Plan Assessment: Large maroon-colored bowel movement likely to GI bleed possible upper GI. Septic shock secondary to acute urinary tract infection requiring pressor support. off pressors now. . Metabolic/toxic encephalopathy. improved. Acute urinary tract infection, culture from previous sample growing E. coli Nonadherence to treatment as an outpatient for her UTI Acute kidney injury likely prerenal. Metabolic acidosis Mild COPD exacerbation Morbid obesity with BMI of 62.0 DVT prophylaxis with heparin subcu Plan: Changed Protonix to IV twice daily. Monitor H&H.General surgery is planning for EGD And colonoscopy tomorrow. Continue with antibiotic currently on cefepime and IV vancomycin dced Urine culture showed E coli and blood culture showed staph epi. off Levophed. Critical care team on board. Patient was on BiPAP and currently titrated down to oxygen 6 L--4L via nasal cannula. Monitor mental status continue with IV steroids and duo nebs. DVT and GI prophylaxis. Further recommendations as per clinical course of the patient DVT prophylaxis: Subcutaneous heparin GI Prophylaxis: Pepcid Prognosis is guarded Time with Patient: Greater than 30
[2022-04-09 11:43] VITALS: BMI 63.5
[2022-04-09 12:02] LABS: HGB 10.1 gm/dL (11.4-16.0); Hypochromasia Moderate; MCH 29.8 pg (25.0-35.0); MCHC 31.6 g/dL (31.0-37.0); MCV 94.4 fL (80.0-100.0); Mean Platelet Volume 8.8; Platelet Count 179 k/uL (150-450); RBC 3.39 m/uL (3.80-5.40); RDW 14.3 % (11.5-15.5); WBC 15.2 k/uL (3.8-10.6)
--- NOTE | 2022-04-09 12:43 | P.PN ---
Subjective Progress Note Date: 04/09/22 Principal diagnosis: E. coli sepsis and E. coli urinary tract infection This is a 66-year-old female with a known history of morbid obesity, bedridden, asthma, viral myalgia, hypertension, anxiety/depression, lifelong nonsmoker. On 03/27/2022 she was here in the emergency department with complaints of symptoms of urinary tract infection. She was found to have E. coli at that time and was treated with antibiotics. Currently the patient did not take her antibiotics due to issues with diarrhea. She was brought back into the emergency room earlier today with altered mental status respiratory distress and low blood pressure. She had been unable to take anything by mouth according to her family members are present at the bedside. White count 19.8. Hemoglobin 13.2. Sodium 139. Potassium 4.6. Chloride 98. Bicarb 24. BUN 85. Creatinine 2.37. AST 121. ALT 48. ProBNP 29. Urinalysis revealed dark brown turbid urine with large leukocyte esterase, greater than 182 WBCs. Many WBC clumps. Many bacteria. Urine drug screen was positive for tricyclic antidepressants and benzodiazepines. Computed tomography scan of the brain revealed age-related atrophic and chronic small vessel ischemic changes without acute intracranial process. Computed tomography scan of the chest revealed lungs are clear and free of infiltrate. Some mild basilar compressive atelectasis. Chronic elevation of the right hemidiaphragm. No pulmonary nodules or masses. CoVID screen was negative. RSV screen negative. Influenza screen negative. Serum alcohol less than 10. Arterial blood gases on 50% FiO2 revealed a PaO2 of 91, pCO2 52 and a pH of 7.33. She was placed on BiPAP 12/6 and 50% FiO2. She is seen today in consultation in the emergency department. She initially was unarousable however she did start to respond to painful stimuli. She is opening her eyes. She is obeying simple commands. He's been initiated on cefepime and vancomycin. She's received 2 L of fluid resuscitation. Normal saline at 100 ML's per hour. She is requiring norepinephrine at 0.1 mcg/kg/m. Progress note dated 04/06/2022.66-year-old female seen again in room 262. The patient is currently doing reasonably well. She is on 5 L nasal cannula. She did not use BiPAP last night. She's getting saline at 100 mL an hour. She is getting cefepime for Escherichia coli infection. Clinically, she appears much more stable. White count 12.1, hemoglobin 11.8, hematocrit 37.5, and platelet count normal. Sodium 141, potassium 4.4, chlorides 107, CO2 24, BUN 27, and creatinine 0.67. Patient was reevaluated today on 04/07/2022, patient was doing well as of yesterday on the regular medical floor, however this morning the patient had a sudden episode of large bloody bowel movement with large blood clot. Patient had no previous history of GI bleeding she is not on any nonsteroidal anti- inflammatory drugs. She does have history of peptic ulcer disease, has been on omeprazole. Last EGD was 5 years ago. Colonoscopy was just over 5 years ago. Patient had no previous history of diverticulitis. Considering the massive bleeding patient was transferred to the ICU. Blood pressure remained stable did not require any pressors or any fluids. Hemoglobin dropped from 11.8-11.3 this morning. Rest of the labs were unremarkable. During my evaluation to the patient in ICU, she had no active bleeding at that time. Did not require any blood products, general surgery was consulted, no GI coverage is available. Patient is scheduled to have EGD in the meantime she remains on PPI and she is off subcu heparin. Reevaluated today on 04/08/2022, patient was transferred yesterday to the ICU mostly because of acute onset of lower GI bleeding. Patient had no further bleeding, did not require any blood transfusion. Patient is scheduled to undergo EGD and colonoscopy today. Overall the patient is doing much better today, she has no cough no wheezing no shortness of breath no chest pain, no nausea no vomiting no abdominal pain. Her WBC normal. Electrolytes are normal and renal profile is normal. Patient is hemodynamically stable, and she is slightly tachycardic with a heart rate of 105. O2 saturations 92% on 4 L nasal cannula. Reevaluated today on , patient has no active bleeding, doing well, hemodynamically stable, still scheduled to undergo EGD and colonoscopy but that was postponed and will be done tomorrow. Considering the patient is not having any active bleeding and she did not require any blood transfusion, I will go ahead and recommended to transfer the patient out of the ICU to a regular medical floor. WBC count is 15.2 hemoglobin 10.1 holding yesterday it was 10.5. Not much of a change. And clinically there is no evidence of active bleeding. Electrolytes are normal renal profile is normal. Repeat metabolic profile is basically unremarkable. Objective - Vital Signs Vital signs: Vital Signs Temp 99.1 F 04/09/22 08:00 Pulse 100 04/09/22 11:28 Resp 20 04/09/22 09:00 BP 126/87 04/09/22 09:00 Pulse Ox 94 L 04/09/22 10:00 FiO2 4 04/09/22 07:53 Intake & Output 04/08/22 04/09/22 04/09/22 18:59 06:59 18:59 Intake Total 3060 620 100 Output Total 705 820 145 Balance 2355 -200 -45 Weight 212.372 kg 212.372 kg Intake: IV 1140 620 100 Cefepime 2 gm In Sodium 100 100 Chloride 0.9% 100 ml @ 25 mls/hr IVPB Q12H [facility] Rx# :[id number] Sodium Chloride 0.9% 1, 1040 520 100 000 ml @ 40 mls/hr IV . Q24H [facility] Rx#:[id number] Oral 1920 Output: Urine 705 820 145 Other: Voiding Method Indwelling Catheter Indwelling Catheter Indwelling Catheter # Bowel Movements 1 1 - Exam GENERAL: Revealed a 66-year-old female, morbidly obese, in no distress. HEENT: PERRLA, EOMI, anicteric, chronic masses, no JVD, no stridor. Head atraumatic, normocephalic. NECK: Supple without lymphadenopathy. CHEST: Clear throughout no crackles or rhonchi or wheezes CARDIOVASCULAR: Distant S1 and S2, no S3 gallop, no murmur. ABDOMEN: Obese, soft, nontender, no megaly, no rebound, no guarding. MUSCULOSKELETAL: No deformities and no limitation in range of motion NEUROLOGIC: Alert and oriented 3 focal deficit PSYCH: Normal mood, affect and normal mental status examination SKIN: No rashes. - Labs CBC & Chem 7: 04/09/22 11:46 04/09/22 08:32 Labs: Abnormal Lab Results - Last 24 Hours (Table) 04/08/22 04/09/22 04/09/22 Range/Units 18:06 00:00 08:32 WBC 15.7 H 15.5 H 13.4 H (3.8-10.6) k/uL RBC 3.60 L 3.27 L 3.42 L (3.80-5.40) m/uL Hgb 10.5 L 10.1 L 10.2 L (11.4-16.0) gm/dL Hct 33.5 L 30.7 L 32.3 L (34.0-46.0) % Creatinine (0.52-1.04) mg/dL Glucose (74-99) mg/dL AST (14-36) U/L ALT (4-34) U/L Total Protein (6.3-8.2) g/dL Albumin (3.5-5.0) g/dL 04/09/22 04/09/22 Range/Units 08:32 11:46 WBC 15.2 H (3.8-10.6) k/uL RBC 3.39 L (3.80-5.40) m/uL Hgb 10.1 L (11.4-16.0) gm/dL Hct 32.0 L (34.0-46.0) % Creatinine 0.47 L (0.52-1.04) mg/dL Glucose 102 H (74-99) mg/dL AST 76 H (14-36) U/L ALT 131 H (4-34) U/L Total Protein 6.1 L (6.3-8.2) g/dL Albumin 3.4 L (3.5-5.0) g/dL Microbiology - Last 24 Hours (Table) 04/02/22 11:15 Blood Culture Gram Stain - Final Blood Blood Culture - Final Staphylococcus epidermidis Assessment and Plan Assessment: Impression: Acute GI bleeding with bright red blood per rectum and blood clots. E. coli urinary tract infection with E. coli sepsis History of peptic ulcer disease. Morbid obesity. Benign essential hypertension Acute kidney injury History of GERD Generalized anxiety disorder and depression Recommendation: Transferred to a regular medical floor Continue plans for EGD and colonoscopy tomorrow Continue antibiotics for E. coli urinary tract infection and sepsis Continue IV fluids Continue PPIs Will follow while in ICU Time with Patient: Less than 30
--- NOTE | 2022-04-09 14:50 | P.PN ---
Subjective Progress Note Date: 04/09/22 CHIEF COMPLAINT: GI bleed HISTORY OF PRESENT ILLNESS: Patient remains in the ICU. Patient was admitted to the hospital with UTI and sepsis. Surgical service following regards patient's GI bleed. She has had no further bleeding. Patient is having bowel movements. She is currently undergoing the bowel prep for colonoscopy. Patient denies abdominal pain. Denies any nausea or vomiting. Afebrile. Mild intermittent tachycardia. WBC 15.2 hemoglobin stable at 10.1 platelets 179 sodium is 137 potassium 3.9 creatinine 0.47 PHYSICAL EXAM: VITAL SIGNS: Reviewed GENERAL: Well-developed in no acute distress. HEENT: No sclera icterus. Extraocular movements grossly intact. Moist buccal mucosa. Head is atraumatic, normocephalic. Hears conversational speech. No nasal drainage. NECK: Supple without lymphadenopathy. CHEST: Non-labored respirations and equal bilateral excursions. CARDIOVASCULAR: Palpable 2+ radial pulses. ABDOMEN: Soft. obese. Nondistended. Nontender. MUSCULOSKELETAL: No clubbing or cyanosis. NEUROLOGIC: No focal or lateralizing signs. Cranial nerves II through XII emelia sly intact. PSYCH: Appropriate affect. Alert and oriented to person, place and time. SKIN: Well perfused. Good skin turgor. ASSESSMENT: 1. Acute GI bleed with bright red blood per rectum and blood clots 2. History of peptic ulcer disease 3. UTI with sepsis 4. Morbid obesity 5. Acute hypoxic respiratory failure 6. History of fibromyalgia 7. GERD 8. History of hypertension 9. Leukocytosis 10. Acute renal failure PLAN: -Patient scheduled for EGD and colonoscopy on , 04/10/[address] Zayas -Continue clear liquid diet -Continue bowel prep -Nothing by mouth after midnight -Continue to monitor for any signs or symptoms of bleeding -Continue PPI -Continue IV fluids Physician Financial Accounting Analyst note has been reviewed by physician. Signing provider agrees with the documented findings, assessment, and plan of care. Objective - Vital Signs Vital signs: Vital Signs Temp 99.1 F 04/09/22 08:00 Pulse 100 04/09/22 11:28 Resp 20 04/09/22 09:00 BP 126/87 04/09/22 09:00 Pulse Ox 94 L 04/09/22 10:00 FiO2 4 04/09/22 07:53 Intake & Output 04/08/22 04/09/22 04/09/22 18:59 06:59 18:59 Intake Total 3060 620 100 Output Total 705 820 145 Balance 2355 -200 -45 Weight 212.372 kg 212.372 kg Intake: IV 1140 620 100 Cefepime 2 gm In Sodium 100 100 Chloride 0.9% 100 ml @ 25 mls/hr IVPB Q12H [facility] Rx# :[id number] Sodium Chloride 0.9% 1, 1040 520 100 000 ml @ 40 mls/hr IV . Q24H [facility] Rx#:[id number] Oral 1920 Output: Urine 705 820 145 Other: Voiding Method Indwelling Catheter Indwelling Catheter Indwelling Catheter # Bowel Movements 1 1 - Labs CBC & Chem 7: 04/09/22 11:46 04/09/22 08:32 Labs: Abnormal Lab Results - Last 24 Hours (Table) 04/08/22 04/09/22 04/09/22 Range/Units 18:06 00:00 08:32 WBC 15.7 H 15.5 H 13.4 H (3.8-10.6) k/uL RBC 3.60 L 3.27 L 3.42 L (3.80-5.40) m/uL Hgb 10.5 L 10.1 L 10.2 L (11.4-16.0) gm/dL Hct 33.5 L 30.7 L 32.3 L (34.0-46.0) % Creatinine (0.52-1.04) mg/dL Glucose (74-99) mg/dL AST (14-36) U/L ALT (4-34) U/L Total Protein (6.3-8.2) g/dL Albumin (3.5-5.0) g/dL 04/09/22 04/09/22 Range/Units 08:32 11:46 WBC 15.2 H (3.8-10.6) k/uL RBC 3.39 L (3.80-5.40) m/uL Hgb 10.1 L (11.4-16.0) gm/dL Hct 32.0 L (34.0-46.0) % Creatinine 0.47 L (0.52-1.04) mg/dL Glucose 102 H (74-99) mg/dL AST 76 H (14-36) U/L ALT 131 H (4-34) U/L Total Protein 6.1 L (6.3-8.2) g/dL Albumin 3.4 L (3.5-5.0) g/dL Microbiology - Last 24 Hours (Table) 04/02/22 11:15 Blood Culture Gram Stain - Final Blood Blood Culture - Final Staphylococcus epidermidis
[2022-04-09] MEDS: HALOPERIDOL LACTATE 5 MG/ML 1 ML VIAL IVP PRN (16:55)
[2022-04-09 18:04] LABS: HCT 29.1 % (34.0-46.0); HGB 9.5 gm/dL (11.4-16.0); Hypochromasia Moderate; MCH 30.5 pg (25.0-35.0); MCHC 32.6 g/dL (31.0-37.0); MCV 93.4 fL (80.0-100.0); Mean Platelet Volume 9.1; Platelet Count 170 k/uL (150-450); RBC 3.11 m/uL (3.80-5.40); RDW 14.3 % (11.5-15.5); WBC 13.9 k/uL (3.8-10.6)
--- NOTE | 2022-04-09 20:58 | P.PN ---
Progress Note - Text Progress Note Date: 04/09/22 Patient is tolerating bowel prep with bowel movements. No further ports of bleeding. We will proceed with both upper and lower endoscopy for GI bleed.
[2022-04-09] MEDS: DOCUSATE 100 MG CAP PO SCH (22:13)
[2022-04-09] MEDS: QUEtiapine 25 MG TAB PO SCH (22:13)
[2022-04-10] MEDS: CEFEPIME 2 GM in SODIUM CHLORIDE 0.9% 100 ML IVPB SCH ×2 (03:56→13:47)
[2022-04-10] MEDS: IPRATROPIUM-ALBUTEROL 3 ML NEB INHALATION SCH ×5 (04:19→20:06)
[2022-04-10] MEDS: SODIUM CHLORIDE 0.9% 1,000 ML IV SCH ×2 (05:27→20:45)
[2022-04-10] MEDS: PANTOPRAZOLE 40 MG/10 ML VIAL IVP SCH ×2 (09:01→20:45)
[2022-04-10] MEDS: predniSONE 10 MG TAB PO SCH (09:01)
[2022-04-10 11:25] LABS: African American GFR (CKD) 125.8 (60.0-200.0); Albumin 3.1 g/dL (3.8-4.9); Albumin/Globulin Ratio 1.41 (1.60-3.17); Anion Gap 7.9 mmol/L (10.00-18.00); BUN/Creat Ratio 26.25 Ratio (12.00-20.00); Blood Urea Nitrogen 10.5 mg/dL (9.0-27.0); Carbon Dioxide 24.1 mmol/L (20.0-27.5); Globulin 2.2 g/dL (1.6-3.3); Non-African American GFR(CKD) 108.5 (60.0-200.0); Potassium 3.7 mmol/L (3.5-5.5); Total Bilirubin 0.4 mg/dL (0.30-1.20); Total Protein 5.3 g/dL (6.2-8.2)
[2022-04-10] MEDS ORDERED: MIDAZOLAM 2 MG/2 ML VIAL ONE (11:25)
[2022-04-10] MEDS ORDERED: KETAMINE 10 MG/ML 20 ML VIAL ONE (11:25)
[2022-04-10] MEDS ORDERED: PROPOFOL 10 MG/ML 20 ML VIAL IV ONE (11:25)
[2022-04-10] MEDS ORDERED: GLYCOPYRROLATE 0.2 MG/ML 2 ML VIAL ONE (11:25)
[2022-04-10] MEDS ORDERED: LIDOCAINE 2% INJ 20 MG/ML (2 ML VIAL) ONE (11:25)
[2022-04-10] MEDS ORDERED: IV FLUID CONTINUATION 100 ML IV ONE (11:25)
--- NOTE | 2022-04-10 11:45 | P.PCN ---
Date of Procedure: 04/10/22 Description of Procedure: PREOPERATIVE DIAGNOSIS: Acute gastrointestinal bleeding Positive stool occult blood Status post blood transfusions History of NSAID use POSTOPERATIVE DIAGNOSIS: Acute gastrointestinal bleeding Positive stool occult blood Status post blood transfusions History of NSAID use Atrophic gastritis OPERATION: Esophagogastroduodenoscopy SURGEON: Jocelin Zayas MD ANESTHESIA: MAC. INDICATIONS: The patient is a 66-year-old female who presents with gastrointestinal bleeding. Benefits and risks of the procedure were described. Informed consent was obtained. DESCRIPTION: The patient was brought into the endoscopy suite and laid in the left lateral decubitus position. An Olympus gastroscope was passed along the posterior oropharynx down to the distal esophagus where the squamocolumnar junction was encountered at 40 cm from the incisors. The stomach was entered and no bile r eflux was found. Additional findings are listed below. The first through third portion of the duodenum was examined and unremarkable. Retroflexion of the scope confirmed Hill grade 2 lower esophageal valve. The squamocolumnar junction demonstrated LA grade B erosive esophagitis. The stomach was desufflated. The patient tolerated the procedure well. FINDINGS: Squamocolumnar junction 40 cm from the incisors. Diaphragmatic hiatus at 40 cm. Hill grade 2 lower esophageal valve. LA grade B erosive esophagitis. No active duodenitis. No stigmata of bleeding Presence of atrophic gastritis with cobblestoning appearance of gastric mucosa RECOMMENDATIONS: 1. Diet as tolerated 2. Upper endoscopy as needed
[2022-04-10] MEDS ORDERED: SODIUM CHLORIDE 0.9% 500 ML 500 ML IV ONE ×2 (11:51)
--- NOTE | 2022-04-10 12:12 | P.PCN ---
Date of Procedure: 04/10/22 Description of Procedure: PREOPERATIVE DIAGNOSIS: Gastrointestinal bleeding Acute blood loss anemia POSTOPERATIVE DIAGNOSIS: Tubular adenoma transverse colon OPERATION: Colonoscopy to the ileocecal valve and appendiceal orifice, cecum Colonoscopy with hot snare polypectomy SURGEON: Jocelin Zayas MD. ANESTHESIA: MAC. INDICATIONS: The patient is an 66-year-old female who presents with acute gastrointestinal bleeding with rectal bleeding. Benefits and risks were described and informed consent was obtained. DESCRIPTION OF PROCEDURE: The patient had undergone Sutab prep. The patient had been brought into the operating room and laid in the left lateral decubitus position. After adequate intravenous sedation, the rectum was examined with 2% lidocaine jelly. No external hemorrhoids were encountered. The rectal tone was within normal limits. No lesions were palpated in the rectal vault. An Olympus colonoscope was advanced until the cecum, ileocecal valve and appendiceal orifice were clearly viewed. The prep was fair. No sigmoid diverticulosis was encountered. Colonic polyps were found and removed. No evidence of focal colitis was found. Retroflexion of the scope demonstrated grade 1 internal hemorrhoids without active bleeding or inflammation. The colon was desufflated. The patient had tolerated the procedure well. Withdrawal time was over 6 minutes. FINDINGS: Aronchick preparation quality scale 3 (1-5) Internal hemorrhoids, grade 1 No external hemorrhoids No arteriovenous malformations. No sigmoid diverticulosis Removal of 2 polyps: - Cold forceps biopsy at mid transverse colon 2, 5 to 10 mm mm adenoma - Cold forceps biopsy at proximal transverse colon, 4 mm adenoma No focal colitis. RECOMMENDATIONS: Repeat colonoscopy 3 years, 2024. Plan - Discharge Summary New Discharge Prescriptions: No Action Montelukast [Singulair] 10 mg PO DAILY Diclofenac Sodium [Voltaren] 75 mg PO BID Amitriptyline HCl [Elavil] 50 - 100 mg PO HS Naproxen [EC-Naprosyn] 500 mg PO BID PRN PRN Reason: Pain Cephalexin [Keflex] 500 mg PO Q8HR #21 cap predniSONE 10 mg PO DAILY PRN PRN Reason: Pain/INFLAMMATION lisinopriL 30 mg PO DAILY Omeprazole 40 mg PO DAILY Furosemide [Lasix] 40 mg PO BID PRN PRN Reason: Edema Baclofen [Lioresal] 20 mg PO TID Pregabalin [Lyrica] 150 mg PO TID hydrOXYzine HCL [Atarax] 25 mg PO TID PRN PRN Reason: Anxiety FLUoxetine HCL 40 mg PO DAILY Cyclobenzaprine [Flexeril] 10 mg PO TID PRN PRN Reason: Muscle Spasm Discharge Medication List Amitriptyline HCl [Elavil] 50 - 100 mg PO HS 02/18/21 [History] Baclofen [Lioresal] 20 mg PO TID 02/18/21 [History] Diclofenac Sodium [Voltaren] 75 mg PO BID 02/18/21 [History] Furosemide [Lasix] 40 mg PO BID PRN 02/18/21 [History] Montelukast [Singulair] 10 mg PO DAILY 02/18/21 [History] Omeprazole 40 mg PO DAILY 02/18/21 [History] Pregabalin [Lyrica] 150 mg PO TID 02/18/21 [History] lisinopriL 30 mg PO DAILY 02/18/21 [History] predniSONE 10 mg PO DAILY PRN 02/18/21 [History] Cephalexin [Keflex] 500 mg PO Q8HR #21 cap 03/27/22 [Rx] Cyclobenzaprine [Flexeril] 10 mg PO TID PRN 03/27/22 [History] FLUoxetine HCL 40 mg PO DAILY 03/27/22 [History] Naproxen [EC-Naprosyn] 500 mg PO BID PRN 03/27/22 [History] hydrOXYzine HCL [Atarax] 25 mg PO TID PRN 03/27/22 [History] Follow up Appointment(s)/Referral(s): Juan Carlos Garcia MD [Primary Care Provider] - 1-2 days
[2022-04-10 12:20] LABS: Basophils # (A) 0.08 X 10*3/uL (0.00-0.10); Basophils % (A) 0.6 %; Eosinophils # (A) 0.59 X 10*3/uL (0.04-0.35); Eosinophils % (A) 4.8 %; HCT 27.3 % (37.2-46.3); HGB 8.5 g/dL (12.0-15.0); Immature Grans, Automated 3.5 %; Lymphocytes # (A) 1.36 X 10*3/uL (0.90-5.00); MCH 29.1 pg (27.0-32.0); MCHC 31.1 g/dL (32.0-37.0); MCV 93.5 fL (80.0-97.0); Mean Platelet Volume 11.5 fL (9.5-12.2); Monocytes % (A) 9.7 %; NRBC Per 100 WBC 0 /100 WBCS (0.0-0.0); Neutrophils # (A) 8.75 X 10*3/uL (1.80-7.70); Neutrophils % (A) 70.4 %; Platelet Count 196 X 10*3/uL (140-440); RBC 2.92 X 10*6/uL (4.10-5.20); RDW 15.7 % (11.5-14.5); WBC 12.42 X 10*3/uL (4.50-10.00)
--- NOTE | 2022-04-10 12:38 | P.PN ---
Subjective Progress Note Date: 04/10/22 This is a 66-year-old female with a known history of morbid obesity, bedridden, asthma, viral myalgia, hypertension, anxiety/depression, lifelong nonsmoker. On 03/27/2022 she was here in the emergency department with complaints of symptoms of urinary tract infection. She was found to have E. coli at that time and was treated with antibiotics. Currently the patient did not take her antibiotics due to issues with diarrhea. She was brought back into the emergency room earlier today with altered mental status respiratory distress and low blood pressure. She had been unable to take anything by mouth according to her family members are present at the bedside. White count 19.8. Hemoglobin 13.2. Sodium 139. Potassium 4.6. Chloride 98. Bicarb 24. BUN 85. Creatinine 2.37. AST 121. ALT 48. ProBNP 29. Urinalysis revealed dark brown turbid urine with large leukocyte esterase, greater than 182 WBCs. Many WBC clumps. Many bacteria. Urine drug screen was positive for tricyclic antidepressants and benzodiazepines. Computed tomography scan of the brain revealed age-related atrophic and chronic small vessel ischemic changes without acute intracranial process. Computed tomography scan of the chest revealed lungs are clear and free of infiltrate. Some mild basilar compressive atelectasis. Chronic elevation of the right hemidiaphragm. No pulmonary nodules or masses. CoVID screen was negative. RSV screen negative. Influenza screen negative. Serum alcohol less than 10. Arterial blood gases on 50% FiO2 revealed a PaO2 of 91, pCO2 52 and a pH of 7.33. She was placed on BiPAP 12/6 and 50% FiO2. She is seen today in consultation in the emergency department. She initially was unarousable however she did start to respond to painful stimuli. She is opening her eyes. She is obeying simple commands. He's been initiated on cefepime and vancomycin. She's received 2 L of fluid resuscitation. Normal saline at 100 ML's per hour. She is requiring norepinephrine at 0.1 mcg/kg/m. Progress note dated 04/06/2022.66-year-old female seen again in room 262. The patient is currently doing reasonably well. She is on 5 L nasal cannula. She did not use BiPAP last night. She's getting saline at 100 mL an hour. She is getting cefepime for Escherichia coli infection. Clinically, she appears much more stable. White count 12.1, hemoglobin 11.8, hematocrit 37.5, and platelet count normal. Sodium 141, potassium 4.4, chlorides 107, CO2 24, BUN 27, and creatinine 0.67. Patient was reevaluated today on 04/07/2022, patient was doing well as of yesterday on the regular medical floor, however this morning the patient had a sudden episode of large bloody bowel movement with large blood clot. Patient had no previous history of GI bleeding she is not on any nonsteroidal anti- inflammatory drugs. She does have history of peptic ulcer disease, has been on omeprazole. Last EGD was 5 years ago. Colonoscopy was just over 5 years ago. Patient had no previous history of diverticulitis. Considering the massive bleeding patient was transferred to the ICU. Blood pressure remained stable did not require any pressors or any fluids. Hemoglobin dropped from 11.8-11.3 this morning. Rest of the labs were unremarkable. During my evaluation to the patient in ICU, she had no active bleeding at that time. Did not require any blood products, general surgery was consulted, no GI coverage is available. Patient is scheduled to have EGD in the meantime she remains on PPI and she is off subcu heparin. Reevaluated today on 04/08/2022, patient was transferred yesterday to the ICU mostly because of acute onset of lower GI bleeding. Patient had no further bleeding, did not require any blood transfusion. Patient is scheduled to undergo EGD and colonoscopy today. Overall the patient is doing much better today, she has no cough no wheezing no shortness of breath no chest pain, no nausea no vomiting no abdominal pain. Her WBC normal. Electrolytes are normal and renal profile is normal. Patient is hemodynamically stable, and she is slightly tachycardic with a heart rate of 105. O2 saturations 92% on 4 L nasal cannula. Reevaluated today on , patient has no active bleeding, doing well, hemodynamically stable, still scheduled to undergo EGD and colonoscopy but that was postponed and will be done tomorrow. Considering the patient is not having any active bleeding and she did not require any blood transfusion, I will go ahead and recommended to transfer the patient out of the ICU to a regular medical floor. WBC count is 15.2 hemoglobin 10.1 holding yesterday it was 10.5. Not much of a change. And clinically there is no evidence of active bleeding. Electrolytes are normal renal profile is normal. Repeat metabolic profile is basically unremarkable. The patient is seen today 04/10/2022 in follow-up on the regular medical floor. She is currently resting comfortably in bed. Awake and alert in no acute distress. She is maintaining O2 saturations in the 90s on 4 L per nasal cannula. She's afebrile. Hemodynamically stable. Urine culture was positive for Staphylococcus epidermidis, urine culture positive for E. coli. White count 12.4. Hemoglobin 8.5. Sodium 139. Potassium 3.7. BUN 10. Creatinine 0.4. If she is continued on cefepime. Continued on bronchodilators. Protonix for GI prophylaxis. Maintained on prednisone 10 mg daily. EGD today revealed atrophic gastritis. Colonoscopy revealed a tubular adenoma in the transverse colon. Status post snare polypectomy. Objective - Vital Signs Vital signs: Vital Signs Temp 97.7 F 04/10/22 08:00 Pulse 98 04/10/22 08:30 Resp 20 04/10/22 09:50 BP 107/66 04/10/22 08:00 Pulse Ox 94 L 04/10/22 08:21 FiO2 4 04/10/22 08:21 Intake & Output 04/09/22 04/10/22 04/10/22 18:59 06:59 18:59 Intake Total 360 400 Output Total 425 700 Balance -65 -700 400 Weight 212.372 kg Intake: IV 360 300 Cefepime 2 gm In Sodium 100 Chloride 0.9% 100 ml @ 25 mls/hr IVPB Q12H [facility] Rx# :[id number] Sodium Chloride 0.9% 1, 260 000 ml @ 40 mls/hr IV . Q24H [facility] Rx#:[id number] Oral 100 Output: Urine 425 700 Other: Voiding Method Indwelling Catheter Indwelling Catheter Indwelling Catheter # Bowel Movements 3 - Exam GENERAL EXAM: Alert, morbidly obese, pleasant 66-year-old female, on 4 L nasal cannula, comfortable in no apparent distress. HEAD: Normocephalic. EYES: Normal reaction of pupils, equal size. NOSE: Clear with pink turbinates. THROAT: No erythema or exudates. NECK: No masses, no JVD. CHEST: No chest wall deformity. LUNGS: Equal air entry with no crackles, wheeze, rhonchi or dullness. CVS: S1 and S2 normal with no audible murmur, regular rhythm. ABDOMEN: No hepatosplenomegaly, normal bowel sounds, no guarding or rigidity. SPINE: No scoliosis or deformity SKIN: No rashes CENTRAL NERVOUS SYSTEM: No focal deficits, tone is normal in all 4 extremities. EXTREMITIES: There is no peripheral edema. No clubbing, no cyanosis. Peripheral pulses are intact. - Labs CBC & Chem 7: 04/10/22 06:41 04/10/22 06:41 Labs: Abnormal Lab Results - Last 24 Hours (Table) 04/09/22 04/10/22 04/10/22 Range/Units 17:33 06:41 06:41 WBC 13.9 H 12.42 H (3.8-10.6) k/uL RBC 3.11 L 2.92 L (3.80-5.40) m/uL Hgb 9.5 L 8.5 L (11.4-16.0) gm/dL Hct 29.1 L 27.3 L (34.0-46.0) % MCHC 31.1 L (32.0-37.0) g/dL RDW 15.7 H (11.5-14.5) % Immature Gran # 0.44 H (0.00-0.04) X 10*3/uL Neutrophils # 8.75 H (1.80-7.70) X 10*3/uL Monocytes # 1.20 H (0.20-1.00) X 10*3/uL Eosinophils # 0.59 H (0.04-0.35) X 10*3/uL Anion Gap 7.90 L (10.00-18.00) mmol/L Creatinine 0.4 L (0.6-1.5) mg/dL BUN/Creatinine Ratio 26.25 H (12.00-20.00) Ratio AST 53 H (13-35) U/L ALT 111 H (8-44) U/L Total Protein 5.3 L (6.2-8.2) g/dL Albumin 3.1 L (3.8-4.9) g/dL Albumin/Globulin Ratio 1.41 L (1.60-3.17) g/dL Microbiology - Last 24 Hours (Table) 04/02/22 11:15 Blood Culture Gram Stain - Final Blood Blood Culture - Final Staphylococcus epidermidis Assessment and Plan Assessment: Altered mental status secondary to sepsis secondary to urinary tract infection, recovered Acute hypotension with septic shock secondary to urinary tract infection, recovered Acute hypoxemic respiratory failure secondary to above, currently on BiPAP / and 50% FiO2 alternating with 4 L nasal cannula Urinary tract infection secondary to E coli Acute renal failure secondary to above Leukocytosis secondary to above Acute blood loss anemia status post EGD/colonoscopy with polypectomy Morbid obesity with a BMI of 63.5 kg per metered squared Hypertension, history of Fibromyalgia History of anxiety/depression Gastroesophageal reflux disease Poor overall functional performance based on the above-mentioned multiple comorbidities, bedridden Plan: The patient was seen and evaluated EGD/colonoscopy, medications and labs reviewed Complete a 10 day course of cefepime initiated on 03/03/2022 Continue DuoNeb inhalations and prednisone The patient is a DO NOT RESUSCITATE/DO NOT INTUBATE CODE STATUS I have personally seen and examined the patient, performed the documentation and the assessment and plan as written. Number of minutes spent on the visit: 10.
[2022-04-10] MEDS ORDERED: IPRATROPIUM-ALBUTEROL 3 ML NEB INHALATION PRN (20:12)
[2022-04-10] MEDS: DOCUSATE 100 MG CAP PO SCH ×2 (20:45→20:46)
[2022-04-10] MEDS: QUEtiapine 25 MG TAB PO SCH (20:45)
[2022-04-11] MEDS: CEFEPIME 2 GM in SODIUM CHLORIDE 0.9% 100 ML IVPB SCH ×2 (02:07→15:57)
[2022-04-11] MEDS: predniSONE 10 MG TAB PO SCH (08:40)
[2022-04-11] MEDS: PANTOPRAZOLE 40 MG/10 ML VIAL IVP SCH ×2 (08:40→21:17)
[2022-04-11 08:42] LABS: Basophils # (A) 0.12 X 10*3/uL (0.00-0.10); Eosinophils # (A) 0.59 X 10*3/uL (0.04-0.35); Eosinophils % (A) 4.8 %; HCT 27.6 % (37.2-46.3); HGB 8.4 g/dL (12.0-15.0); Immature Grans, Automated 2.8 %; Lymphocytes # (A) 1.44 X 10*3/uL (0.90-5.00); Lymphocytes % (A) 11.6 %; MCH 28.7 pg (27.0-32.0); MCHC 30.4 g/dL (32.0-37.0); MCV 94.2 fL (80.0-97.0); Mean Platelet Volume 10.9 fL (9.5-12.2); Monocytes # (A) 1.38 X 10*3/uL (0.20-1.00); Monocytes % (A) 11.1 %; NRBC Per 100 WBC 0 /100 WBCS (0.0-0.0); Neutrophils # (A) 8.53 X 10*3/uL (1.80-7.70); Neutrophils % (A) 68.7 %; Platelet Count 193 X 10*3/uL (140-440); RBC 2.93 X 10*6/uL (4.10-5.20); RDW 15.7 % (11.5-14.5); WBC 12.41 X 10*3/uL (4.50-10.00)
[2022-04-11 08:49] LABS: African American GFR (CKD) 116.9 (60.0-200.0); Anion Gap 9.9 mmol/L (10.00-18.00); BUN/Creat Ratio 17.6 Ratio (12.00-20.00); Blood Urea Nitrogen 8.8 mg/dL (9.0-27.0); Calcium 8.8 mg/dL (8.7-10.3); Carbon Dioxide 24.1 mmol/L (20.0-27.5); Non-African American GFR(CKD) 100.9 (60.0-200.0); Potassium 3.6 mmol/L (3.5-5.5)
[2022-04-11] MEDS: IPRATROPIUM-ALBUTEROL 3 ML NEB INHALATION SCH ×4 (08:56→19:10)
--- NOTE | 2022-04-11 12:56 | P.PN ---
Subjective Progress Note Date: 04/11/22 This is a 66-year-old female with a known history of morbid obesity, bedridden, asthma, viral myalgia, hypertension, anxiety/depression, lifelong nonsmoker. On 03/27/2022 she was here in the emergency department with complaints of symptoms of urinary tract infection. She was found to have E. coli at that time and was treated with antibiotics. Currently the patient did not take her antibiotics due to issues with diarrhea. She was brought back into the emergency room earlier today with altered mental status respiratory distress and low blood pressure. She had been unable to take anything by mouth according to her family members are present at the bedside. White count 19.8. Hemoglobin 13.2. Sodium 139. Potassium 4.6. Chloride 98. Bicarb 24. BUN 85. Creatinine 2.37. AST 121. ALT 48. ProBNP 29. Urinalysis revealed dark brown turbid urine with large leukocyte esterase, greater than 182 WBCs. Many WBC clumps. Many bacteria. Urine drug screen was positive for tricyclic antidepressants and benzodiazepines. Computed tomography scan of the brain revealed age-related atrophic and chronic small vessel ischemic changes without acute intracranial process. Computed tomography scan of the chest revealed lungs are clear and free of infiltrate. Some mild basilar compressive atelectasis. Chronic elevation of the right hemidiaphragm. No pulmonary nodules or masses. CoVID screen was negative. RSV screen negative. Influenza screen negative. Serum alcohol less than 10. Arterial blood gases on 50% FiO2 revealed a PaO2 of 91, pCO2 52 and a pH of 7.33. She was placed on BiPAP 12/6 and 50% FiO2. She is seen today in consultation in the emergency department. She initially was unarousable however she did start to respond to painful stimuli. She is opening her eyes. She is obeying simple commands. He's been initiated on cefepime and vancomycin. She's received 2 L of fluid resuscitation. Normal saline at 100 ML's per hour. She is requiring norepinephrine at 0.1 mcg/kg/m. Progress note dated 04/06/2022.66-year-old female seen again in room 262. The patient is currently doing reasonably well. She is on 5 L nasal cannula. She did not use BiPAP last night. She's getting saline at 100 mL an hour. She is getting cefepime for Escherichia coli infection. Clinically, she appears much more stable. White count 12.1, hemoglobin 11.8, hematocrit 37.5, and platelet count normal. Sodium 141, potassium 4.4, chlorides 107, CO2 24, BUN 27, and creatinine 0.67. Patient was reevaluated today on 04/07/2022, patient was doing well as of yesterday on the regular medical floor, however this morning the patient had a sudden episode of large bloody bowel movement with large blood clot. Patient had no previous history of GI bleeding she is not on any nonsteroidal anti- inflammatory drugs. She does have history of peptic ulcer disease, has been on omeprazole. Last EGD was 5 years ago. Colonoscopy was just over 5 years ago. Patient had no previous history of diverticulitis. Considering the massive bleeding patient was transferred to the ICU. Blood pressure remained stable did not require any pressors or any fluids. Hemoglobin dropped from 11.8-11.3 this morning. Rest of the labs were unremarkable. During my evaluation to the patient in ICU, she had no active bleeding at that time. Did not require any blood products, general surgery was consulted, no GI coverage is available. Patient is scheduled to have EGD in the meantime she remains on PPI and she is off subcu heparin. Reevaluated today on 04/08/2022, patient was transferred yesterday to the ICU mostly because of acute onset of lower GI bleeding. Patient had no further bleeding, did not require any blood transfusion. Patient is scheduled to undergo EGD and colonoscopy today. Overall the patient is doing much better today, she has no cough no wheezing no shortness of breath no chest pain, no nausea no vomiting no abdominal pain. Her WBC normal. Electrolytes are normal and renal profile is normal. Patient is hemodynamically stable, and she is slightly tachycardic with a heart rate of 105. O2 saturations 92% on 4 L nasal cannula. Reevaluated today on , patient has no active bleeding, doing well, hemodynamically stable, still scheduled to undergo EGD and colonoscopy but that was postponed and will be done tomorrow. Considering the patient is not having any active bleeding and she did not require any blood transfusion, I will go ahead and recommended to transfer the patient out of the ICU to a regular medical floor. WBC count is 15.2 hemoglobin 10.1 holding yesterday it was 10.5. Not much of a change. And clinically there is no evidence of active bleeding. Electrolytes are normal renal profile is normal. Repeat metabolic profile is basically unremarkable. The patient is seen today 04/10/2022 in follow-up on the regular medical floor. She is currently resting comfortably in bed. Awake and alert in no acute distress. She is maintaining O2 saturations in the 90s on 4 L per nasal cannula. She's afebrile. Hemodynamically stable. Urine culture was positive for Staphylococcus epidermidis, urine culture positive for E. coli. White count 12.4. Hemoglobin 8.5. Sodium 139. Potassium 3.7. BUN 10. Creatinine 0.4. If she is continued on cefepime. Continued on bronchodilators. Protonix for GI prophylaxis. Maintained on prednisone 10 mg daily. EGD today revealed atrophic gastritis. Colonoscopy revealed a tubular adenoma in the transverse colon. Status post snare polypectomy. The patient is seen today 04/11/2022 in follow-up on the regular medical floor. She is awake and alert distress. Resting comfortably in bed. Maintaining good O2 saturations up to 99% on 4 L nasal cannula. No worsening shortness of breath, cough or congestion. Urine culture had been positive for E. coli and 04/02/2022. The cultures positive for Staphylococcus epidermidis. She's been maintained on cefepime. White count 12.4. Hemoglobin 8.4. Sodium 139. Potassium 3.6. BUN 8.8. Creatinine 0.5. Objective - Vital Signs Vital signs: Vital Signs Temp 98.4 F 04/11/22 07:59 Pulse 94 04/11/22 12:20 Resp 17 04/11/22 07:59 BP 125/81 04/11/22 07:59 Pulse Ox 99 04/11/22 08:56 FiO2 4 04/10/22 08:21 Intake & Output 04/10/22 04/11/22 04/11/22 18:59 06:59 18:59 Intake Total 400 Balance 400 Intake: IV 300 Oral 100 Other: Voiding Method Indwelling Catheter Indwelling Catheter - Exam GENERAL EXAM: Alert, morbidly obese, 66-year-old female, on 4 L nasal cannula, comfortable in no apparent distress. HEAD: Normocephalic. EYES: Normal reaction of pupils, equal size. NOSE: Clear with pink turbinates. THROAT: No erythema or exudates. NECK: No masses, no JVD. CHEST: No chest wall deformity. LUNGS: Equal air entry with no crackles, wheeze, rhonchi or dullness. CVS: S1 and S2 normal with no audible murmur, regular rhythm. ABDOMEN: No hepatosplenomegaly, normal bowel sounds, no guarding or rigidity. SPINE: No scoliosis or deformity SKIN: No rashes CENTRAL NERVOUS SYSTEM: No focal deficits, tone is normal in all 4 extremities. EXTREMITIES: There is no peripheral edema. No clubbing, no cyanosis. Peripheral pulses are intact. - Labs CBC & Chem 7: 04/11/22 06:01 04/11/22 06:01 Labs: Abnormal Lab Results - Last 24 Hours (Table) 04/11/22 04/11/22 Range/Units 06:01 06:01 WBC 12.41 H (4.50-10.00) X 10*3/uL RBC 2.93 L (4.10-5.20) X 10*6/uL Hgb 8.4 L (12.0-15.0) g/dL Hct 27.6 L (37.2-46.3) % MCHC 30.4 L (32.0-37.0) g/dL RDW 15.7 H (11.5-14.5) % Immature Gran # 0.35 H (0.00-0.04) X 10*3/uL Neutrophils # 8.53 H (1.80-7.70) X 10*3/uL Monocytes # 1.38 H (0.20-1.00) X 10*3/uL Eosinophils # 0.59 H (0.04-0.35) X 10*3/uL Basophils # 0.12 H (0.00-0.10) X 10*3/uL Anion Gap 9.90 L (10.00-18.00) mmol/L BUN 8.8 L (9.0-27.0) mg/dL Creatinine 0.5 L (0.6-1.5) mg/dL Assessment and Plan Assessment: Altered mental status secondary to sepsis secondary to urinary tract infection, recovered Acute hypotension with septic shock secondary to urinary tract infection, recovered Acute hypoxemic respiratory failure secondary to above, currently on 4 L nasal cannula alternating with BiPAP 12/6 and 50% FiO2 Urinary tract infection secondary to E coli Acute renal failure secondary to above Leukocytosis secondary to above Acute blood loss anemia status post EGD/colonoscopy with polypectomy Morbid obesity with a BMI of 63.5 kg per metered squared Hypertension, history of Fibromyalgia History of anxiety/depression Gastroesophageal reflux disease Poor overall functional performance based on the above-mentioned multiple comorbidities, bedridden Plan: The patient was seen and evaluated Medications and labs reviewed Complete a 10 day course of cefepime initiated on 03/03/2022 Continue DuoNeb inhalations and prednisone Titrate down the FiO2 as tolerated DO NOT RESUSCITATE/DO NOT INTUBATE CODE STATUS We will continue to follow I have personally seen and examined the patient, performed the documentation and the assessment and plan as written. Number of minutes spent on the visit: 10.
--- NOTE | 2022-04-11 13:39 | P.PN ---
Subjective Progress Note Date: 04/11/22 CHIEF COMPLAINT: GI bleed HISTORY OF PRESENT ILLNESS: Patient is currently on a regular medical floor. Sh ghazala is status post EGD and colonoscopy. Results have revealed atrophic gastritis, erosive esophagitis and removal of 2 colon polyps. Patient denies any abdominal pain. She reports having a brown stool last night. Denies any nausea vomiting. Tolerating regular diet. Afebrile. Hemoglobin stable at 8.4. Hemoglobin 8.5 yesterday. PHYSICAL EXAM: VITAL SIGNS: Reviewed GENERAL: Well-developed in no acute distress. HEENT: No sclera icterus. Extraocular movements grossly intact. Moist buccal m ucosa. Head is atraumatic, normocephalic. Hears conversational speech. No nasal drainage. NECK: Supple without lymphadenopathy. CHEST: Non-labored respirations and equal bilateral excursions. CARDIOVASCULAR: Palpable 2+ radial pulses. ABDOMEN: Soft. obese. Nondistended. Nontender. MUSCULOSKELETAL: No clubbing or cyanosis. NEUROLOGIC: No focal or lateralizing signs. Cranial nerves II through XII grossly intact. PSYCH: Appropriate affect. Alert and oriented to person, place and time. SKIN: Well perfused. Good skin turgor. ASSESSMENT: 1. Acute GI bleed with bright red blood per rectum and blood clots 2. History of peptic ulcer disease 3. UTI with sepsis 4. Morbid obesity 5. Acute hypoxic respiratory failure 6. History of fibromyalgia 7. GERD 8. History of hypertension 9. Leukocytosis 10. Acute renal failure 11. History of NSAID use PLAN: -Patient can be discharged from surgical standpoint when medically cleared -Continue regular diet -Continue PPI -Continue supportive care -Recommend repeat colonoscopy in 3 years Physician Operation Research Analyst note has been reviewed by physician. Signing provider agrees with the documented findings, assessment, and plan of care. Objective - Vital Signs Vital signs: Vital Signs Temp 98.4 F 04/11/22 07:59 Pulse 94 04/11/22 12:20 Resp 17 04/11/22 07:59 BP 125/81 04/11/22 07:59 Pulse Ox 99 04/11/22 08:56 FiO2 4 04/10/22 08:21 Intake & Output 04/10/22 04/11/22 04/11/22 18:59 06:59 18:59 Intake Total 400 Balance 400 Intake: IV 300 Oral 100 Other: Voiding Method Indwelling Catheter Indwelling Catheter - Labs CBC & Chem 7: 04/11/22 06:01 04/11/22 06:01 Labs: Abnormal Lab Results - Last 24 Hours (Table) 04/11/22 04/11/22 Range/Units 06:01 06:01 WBC 12.41 H (4.50-10.00) X 10*3/uL RBC 2.93 L (4.10-5.20) X 10*6/uL Hgb 8.4 L (12.0-15.0) g/dL Hct 27.6 L (37.2-46.3) % MCHC 30.4 L (32.0-37.0) g/dL RDW 15.7 H (11.5-14.5) % Immature Gran # 0.35 H (0.00-0.04) X 10*3/uL Neutrophils # 8.53 H (1.80-7.70) X 10*3/uL Monocytes # 1.38 H (0.20-1.00) X 10*3/uL Eosinophils # 0.59 H (0.04-0.35) X 10*3/uL Basophils # 0.12 H (0.00-0.10) X 10*3/uL Anion Gap 9.90 L (10.00-18.00) mmol/L BUN 8.8 L (9.0-27.0) mg/dL Creatinine 0.5 L (0.6-1.5) mg/dL
[2022-04-11] MEDS: DOCUSATE 100 MG CAP PO SCH (21:17)
[2022-04-11] MEDS: QUEtiapine 25 MG TAB PO SCH (21:17)
[2022-04-11] MEDS: SODIUM CHLORIDE 0.9% 1,000 ML IV SCH (22:23)
[2022-04-12] MEDS: CEFEPIME 2 GM in SODIUM CHLORIDE 0.9% 100 ML IVPB SCH ×2 (01:48→14:50)
[2022-04-12] MEDS: IPRATROPIUM-ALBUTEROL 3 ML NEB INHALATION SCH ×4 (08:25→19:57)
[2022-04-12] MEDS: PANTOPRAZOLE 40 MG/10 ML VIAL IVP SCH ×2 (08:42→20:01)
[2022-04-12] MEDS: predniSONE 10 MG TAB PO SCH (08:42)
[2022-04-12 11:24] LABS: Basophils # (A) 0.09 X 10*3/uL (0.00-0.10); Basophils % (A) 0.8 %; Eosinophils % (A) 6.2 %; HCT 28.1 % (37.2-46.3); HGB 8.6 g/dL (12.0-15.0); Immature Grans, Automated 2.5 %; Lymphocytes # (A) 1.45 X 10*3/uL (0.90-5.00); Lymphocytes % (A) 12.9 %; MCH 28.8 pg (27.0-32.0); MCHC 30.6 g/dL (32.0-37.0); Mean Platelet Volume 10.9 fL (9.5-12.2); Monocytes # (A) 1.15 X 10*3/uL (0.20-1.00); Monocytes % (A) 10.2 %; NRBC Per 100 WBC 0 /100 WBCS (0.0-0.0); Neutrophils # (A) 7.57 X 10*3/uL (1.80-7.70); Neutrophils % (A) 67.4 %; Platelet Count 225 X 10*3/uL (140-440); RBC 2.99 X 10*6/uL (4.10-5.20); RDW 15.9 % (11.5-14.5); WBC 11.24 X 10*3/uL (4.50-10.00)
[2022-04-12 11:44] LABS: African American GFR (CKD) 116.9 (60.0-200.0); Anion Gap 8.3 mmol/L (10.00-18.00); BUN/Creat Ratio 18.6 Ratio (12.00-20.00); Blood Urea Nitrogen 9.3 mg/dL (9.0-27.0); Calcium 9.2 mg/dL (8.7-10.3); Carbon Dioxide 27.7 mmol/L (20.0-27.5); Non-African American GFR(CKD) 100.9 (60.0-200.0); Potassium 3.1 mmol/L (3.5-5.5)
--- NOTE | 2022-04-12 18:57 | P.PN ---
Subjective Progress Note Date: 04/12/22 CHIEF COMPLAINT: Gastrointestinal bleeding HISTORY OF PRESENT ILLNESS: The patient is a 66-year-old female who had gastrointestinal bleeding. She had both upper and lower endoscopy. No further bleeding over 5 days. She is tolerating diet. She's been in transfer to rehab. ROS: No reports of nausea and vomiting. She is having bowel movements. No fevers or chills. No new chest pain. No productive sputum PHYSICAL EXAM: VITAL SIGNS: Reviewed CONSTITUTIONAL: Well developed and in no acute distress. EYES: Conjuctivae without sclera icterus. Extraocular movements grossly intact. HEAD, EARS, NOSE, THROAT: Moist buccal mucosa. Head is atraumatic, normocephalic. Hears conversational speech. No nasal drainage. RESPIRATORY: Non-labored respirations and equal bilateral excursions. CARDIOVASCULAR: Palpable 2+ radial pulses. ABDOMEN: Obese. No peritonitis. MUSCULOSKELETAL: No gross deformity of the lower extremities noted. No clubbing. No cyanosis. On air mattress specialty bed. SKIN: Good skin turgor. Well perfused. NEUROLOGIC: Cranial nerves II through XII grossly intact. No focal or lateralizing signs. PSYCH: Appropriate affect. Alert and oriented to person, place and time. CLINICAL LABS: Reviewed. Hemoglobin stable at 8.4-8.6. PATHOLOGY: Hyperplastic polyps of the colon ASSESSMENT: 1. Gastrointestinal bleeding 2. Morbid obesity due to excess calories, BMI 63.5 PLAN: 1. Recommend iron studies and may benefit from iron infusion 2. Monitor hemoglobin 3. Pending transfer to rehab. Objective - Vital Signs Vital signs: Vital Signs Temp 98.3 F 04/12/22 09:06 Pulse 94 04/12/22 12:21 Resp 16 04/12/22 09:53 BP 121/77 04/12/22 09:06 Pulse Ox 95 04/12/22 09:06 FiO2 4 04/10/22 08:21 Intake & Output 04/11/22 04/12/22 04/12/22 18:59 06:59 18:59 Intake Total 100 Balance 100 Weight 212.372 kg Intake: Oral 100 Other: Voiding Method Indwelling Catheter Indwelling Catheter # Bowel Movements 1 - Labs CBC & Chem 7: 04/12/22 06:29 04/12/22 06:29 Labs: Abnormal Lab Results - Last 24 Hours (Table) 04/12/22 04/12/22 Range/Units 06:29 06:29 WBC 11.24 H (4.50-10.00) X 10*3/uL RBC 2.99 L (4.10-5.20) X 10*6/uL Hgb 8.6 L (12.0-15.0) g/dL Hct 28.1 L (37.2-46.3) % MCHC 30.6 L (32.0-37.0) g/dL RDW 15.9 H (11.5-14.5) % Immature Gran # 0.28 H (0.00-0.04) X 10*3/uL Monocytes # 1.15 H (0.20-1.00) X 10*3/uL Eosinophils # 0.70 H (0.04-0.35) X 10*3/uL Potassium 3.1 L (3.5-5.5) mmol/L Carbon Dioxide 27.7 H (20.0-27.5) mmol/L Anion Gap 8.30 L (10.00-18.00) mmol/L Creatinine 0.5 L (0.6-1.5) mg/dL
[2022-04-12] MEDS: DOCUSATE 100 MG CAP PO SCH (20:01)
[2022-04-12] MEDS: QUEtiapine 25 MG TAB PO SCH (20:01)
[2022-04-13] MEDS: SODIUM CHLORIDE 0.9% 1,000 ML IV SCH (05:17)
[2022-04-13] MEDS: CEFEPIME 2 GM in SODIUM CHLORIDE 0.9% 100 ML IVPB SCH ×2 (05:19→14:58)
[2022-04-13] MEDS: predniSONE 10 MG TAB PO SCH (09:03)
[2022-04-13] MEDS: PANTOPRAZOLE 40 MG/10 ML VIAL IVP SCH ×2 (09:04→20:25)
[2022-04-13] MEDS: IPRATROPIUM-ALBUTEROL 3 ML NEB INHALATION SCH ×4 (09:20→19:30)
[2022-04-13 09:25] LABS: Basophils # (A) 0.08 X 10*3/uL (0.00-0.10); Basophils % (A) 0.8 %; Eosinophils % (A) 6.8 %; HCT 27.7 % (37.2-46.3); HGB 8.4 g/dL (12.0-15.0); Immature Grans, Automated 1.9 %; Lymphocytes # (A) 1.38 X 10*3/uL (0.90-5.00); Lymphocytes % (A) 13.4 %; MCH 28.5 pg (27.0-32.0); MCHC 30.3 g/dL (32.0-37.0); MCV 93.9 fL (80.0-97.0); Mean Platelet Volume 10.4 fL (9.5-12.2); Monocytes # (A) 1.27 X 10*3/uL (0.20-1.00); Monocytes % (A) 12.3 %; NRBC Per 100 WBC 0 /100 WBCS (0.0-0.0); Neutrophils % (A) 64.8 %; Platelet Count 249 X 10*3/uL (140-440); RBC 2.95 X 10*6/uL (4.10-5.20); WBC 10.33 X 10*3/uL (4.50-10.00)
[2022-04-13 09:38] LABS: % Iron Saturation 6.88 (12.00-45.00); African American GFR (CKD) 128.8 (60.0-200.0); Anion Gap 8.2 mmol/L (10.00-18.00); BUN/Creat Ratio 20.13 Ratio (12.00-20.00); Blood Urea Nitrogen 7.5 mg/dL (9.0-27.0); Calcium 8.9 mg/dL (8.7-10.3); Carbon Dioxide 28.6 mmol/L (20.0-27.5); Non-African American GFR(CKD) 111.2 (60.0-200.0); Potassium 3.1 mmol/L (3.5-5.5)
[2022-04-13 15:06] LABS: Amorphous Sediment,Urine Rare /hpf; Appearance,Urine Clear (Clear); Bilirubin,Urine Negative (Negative); Blood,Urine Large (Negative); Color,Urine Yellow; Glucose,Urine (UA) Trace (Negative); Ketones,Urine Negative (Negative); Leukocyte Esterase,Urine Trace (Negative); Mucus,Urine Few /hpf; Nitrite,Urine Negative (Negative); PH, Urine 6.5 (5.0-8.0); Protein,Urine Trace (Negative); RBC,Urine 75 /hpf (0-5); Squamous Epithelial Cell,Urine 1 /hpf (0-4); Urobilinogen,Urine <2.0 mg/dL (<2.0); WBC,Urine 8 /hpf (0-5)
[2022-04-13] MEDS: DOCUSATE 100 MG CAP PO SCH (20:15)
[2022-04-13] MEDS: QUEtiapine 25 MG TAB PO SCH (20:25)
--- NOTE | 2022-04-13 22:39 | P.PN ---
Subjective Progress Note Date: 04/13/22 CHIEF COMPLAINT: Gastrointestinal bleeding HISTORY OF PRESENT ILLNESS: The patient is a 66-year-old female who had gastrointestinal bleeding. She had both upper and lower endoscopy. She has had no further bleeding since her scopes. She is tolerating diet. She is pending rehab. ROS: No reports of nausea and vomiting. She is having bowel movements. No fevers or chills. No new chest pain. No productive sputum PHYSICAL EXAM: VITAL SIGNS: Reviewed CONSTITUTIONAL: Well developed and in no acute distress. EYES: Conjuctivae without sclera icterus. Extraocular movements grossly intact. HEAD, EARS, NOSE, THROAT: Moist buccal mucosa. Head is atraumatic, normocephalic. Hears conversational speech. No nasal drainage. RESPIRATORY: Non-labored respirations and equal bilateral excursions. CARDIOVASCULAR: Palpable 2+ radial pulses. ABDOMEN: Obese. No peritonitis. MUSCULOSKELETAL: No gross deformity of the lower extremities noted. No clubbing. No cyanosis. On air mattress specialty bed. SKIN: Good skin turgor. Well perfused. NEUROLOGIC: Cranial nerves II through XII grossly intact. No focal or lateralizing signs. PSYCH: Appropriate affect. Alert and oriented to person, place and time. CLINICAL LABS: Reviewed. Hemoglobin stable at 8.4-8.6, now 8.4. Iron studies consistent with iron deficiency anemia. ASSESSMENT: 1. Gastrointestinal bleeding 2. Morbid obesity due to excess calories, BMI 63.5 3. Iron deficiency anemia PLAN: 1. Iron infusions ordered. 2. Stable for discharge from a surgical standpoint when medically stable. Objective - Vital Signs Vital signs: Vital Signs Temp 98.2 F 04/13/22 14:00 Pulse 97 04/13/22 19:43 Resp 18 04/13/22 08:00 BP 137/81 04/13/22 14:00 Pulse Ox 96 04/13/22 14:00 FiO2 4 04/10/22 08:21 Intake & Output 04/13/22 04/13/22 04/14/22 06:59 18:59 06:59 Intake Total 450 Output Total 850 700 Balance -850 -250 Intake: Oral 450 Output: Urine 850 700 Other: Voiding Method Indwelling Catheter Indwelling Catheter - Labs CBC & Chem 7: 04/13/22 05:07 04/13/22 05:07 Labs: Abnormal Lab Results - Last 24 Hours (Table) 04/13/22 04/13/22 04/13/22 Range/Units 05:07 05:07 14:37 WBC 10.33 H (4.50-10.00) X 10*3/uL RBC 2.95 L (4.10-5.20) X 10*6/uL Hgb 8.4 L (12.0-15.0) g/dL Hct 27.7 L (37.2-46.3) % MCHC 30.3 L (32.0-37.0) g/dL RDW 16.0 H (11.5-14.5) % Immature Gran # 0.20 H (0.00-0.04) X 10*3/uL Monocytes # 1.27 H (0.20-1.00) X 10*3/uL Eosinophils # 0.70 H (0.04-0.35) X 10*3/uL Potassium 3.1 L (3.5-5.5) mmol/L Carbon Dioxide 28.6 H (20.0-27.5) mmol/L Anion Gap 8.20 L (10.00-18.00) mmol/L BUN 7.5 L (9.0-27.0) mg/dL Creatinine 0.4 L (0.6-1.5) mg/dL BUN/Creatinine Ratio 20.13 H (12.00-20.00) Ratio Iron 15 L (50-170) ug/dL TIBC 224 L (228-460) ug/dL % Saturation 6.88 L (12.00-45.00) Transferrin 160.0 L (204.0-354.0) mg/dL Urine Protein Trace H (Negative) Urine Glucose (UA) Trace H (Negative) Urine Blood Large H (Negative) Ur Leukocyte Esterase Trace H (Negative) Urine RBC 75 H (0-5) /hpf Urine WBC 8 H (0-5) /hpf Amorphous Sediment Rare H (None) /hpf Urine Mucus Few H (None) /hpf
--- NOTE | 2022-04-14 01:10 | P.PN ---
Subjective Progress Note Date: 04/09/22 This is a pleasant 66 years old female with past medical history off Fibromyalgia, Hypertension, chronic bronchitis, muscle spasms, UTI,Anxiety, Depression Patient desires because of fall on her left hip area with left hip pain. Patient is poor historian . Case was discussed with and emergency room physician Dr. Flower. Patient was recently diagnosed with UTI and she was placed on antibiotics, Keflex is one of her home medication. However patient was refusing to take medication for her UTI because of concern for diarrhea. Today she presents be cause of altered mental status and patient is poor historian. Patient at baseline and is bedbound, she has vague history of CHF and COPD but that comes with septic picture, she was dyspneic at home and she was placed on BiPAP first in the emergency room . Family were at bedside and discussed with Dr. Flower the wishes for the patient to be DO NOT INTUBATE but they're okay to start pressors was started on small dose of pressors and blood pressure improved up to 142/82. She is currently saturating 100% on BiPAP. Patient is afebrile. She has evidence of leukocytosis with WBC 19.8. Rest of CBC is unremarkable. INR is normal. PH is low at 7.3. Potassium 4.6, creatinine up at 2.3 liver enzymes mildly elevated, troponin is negative. Urinalysis is suspicious for infection. Urine toxicology is positive for tricyclic antidepressants and benzodiazepines. Serum alcohol less than 10. Influenza, RSV and cov undetected.id urine culture from 03/[address] of the chest without contrast showing mild bibasilar compressive atelectasis and/or parenchymal scarring. Chronic elevation of the right hemidiaphragm. CT of the brain: No acute process. EKG: Normal sinus rhythm at [address]-T changes. Chest x-ray: Patchy infiltrate right suprahilar region may reflect developing infiltrate Patient was started on cefepime and IV vancomycin ER. Patient has multiple drug ALLERGIES she missed a dose of antibiotic 04/03/2022 Patient is in the MICU. Patient is awake alert but lethargic and weak. Afebrile. Was admitted to hospital due to septic shock secondary to urinary tract infection and encephalopathy. Patient was requiring BiPAP with 50% FiO2. Currently on oxygen 6 L via nasal cannula. Patient is also on pressor support with Levophed. Current on antibiotics in the form of cefepime and vancomycin. Urine culture and blood cultures are pending. Blood cultures showed gram-positive cocci. Previous history of urinary tract infection with E. coli. No nausea vomiting or diarrhea. No cough or sputum production. Laboratory pressure WBC 16.8 hemoglobin 12.7 platelets 223 Sodium 143 potassium 6.0 chloride 105 BUN 68 and creatinine 1.58 04/04/2022 Patient is in the MICU. Lying in bed. Awake alert and oriented x3. Patient is lethargic and weak. Currently on oxygen via nasal cannula. Off pressor support. Blood cultures growing staph epidermis. Vancomycin has been discontinued and patient is being continued on cefepime. Urine culture showed gram-negative bacilli. Finalized report is pending. Patient has been afebrile. No nausea vomiting or abdominal pain or diarrhea. No cough or sputum production. Laboratory data showed WBC 13.5 hemoglobin 12.6 and platelets 176 Sodium 143 potassium 5.3 chloride 109 BUN 43 creatinine 0.81 04/05/2022 Patient is currently lying in bed. Awake alert and oriented x3. No complaints of chest pain or shortness of breath. No nausea vomiting abdominal pain or diarrhea. Patient is off pressor support. Continue antibiotics and follow cefepime and duo nebs. Patient is also on IV hydration with normal saline at hand-assisted brother. Laboratory data showed WBC 13.4 hemoglobin 12.0 and platelets 172 Sodium 140 potassium 5.0 chloride 106 bicarb is 21 BUN 36 and creatinine 0.62. Liver enzymes are trending down. Urine culture showed E. coli and blood cultures showed staph epidermis. Pulmonary and ID is on board. 04/07/2022 Patient was transferred back to ICU this morning. She was improving and was hemodynamically stable yesterday. Today morning she did have a large maroon-colored bowel movement and large blood clot. Patient was suspected to have acute GI bleed with history of peptic ulcer disease and has been on omeprazole. Denies any active bleeding currently. Denies any complaints of abdominal pain. Patient was transferred to MICU. Currently blood pressure is stable. Slightly tachycardic with heart rate 101. Repeat hemoglobin level is 11.3 and 10.8. General surgery was consulted and patient is scheduled for EGD and will be Continued on Protonix IV twice daily. Other laboratory showed WBC 11.9 platelets 161. 04/08/2022 Patient is in MICU. Less than the benefit awake alert and oriented 3. No complaints of abdominal pain. Denied any further episodes of blood clots per rectum. No nausea vomiting or diarrhea. No cough or sputum production. Patient has been afebrile. Continued on IV Protonix. Laboratory data showed WBC 15.7 hemoglobin 10.5 and platelets 184. General surgery is planned for colonoscopy and EGD tomorrow. Otherwise patient is being continued on antibiotics, cefepime for E. coli urinary tract infection/septic shock. 04/09/2022 Patient is currently in MICU. Hemodynamically stable. Patient is scheduled for EGD and colonoscopy tomorrow. No active bleeding. No complaints of chest pain or shortness of breath. No headache or dizziness lightheadedness. No fever no chills. No other acute overnight issues. Patient is being boarded in the MICU. Laboratory reviewed. Current medications reviewed. Objective - Vital Signs Vital signs: Vital Signs Temp 99.1 F 04/09/22 08:00 Pulse 104 H 04/09/22 08:06 Resp 20 04/09/22 09:00 BP 126/87 04/09/22 09:00 Pulse Ox 96 04/09/22 09:00 FiO2 4 04/09/22 07:53 Intake & Output 04/08/22 04/09/22 04/09/22 18:59 06:59 18:59 Intake Total 3060 620 80 Output Total 705 820 110 Balance 2355 -200 -30 Weight 212.372 kg Intake: IV 1140 620 80 Cefepime 2 gm In Sodium 100 100 Chloride 0.9% 100 ml @ 25 mls/hr IVPB Q12H [facility] Rx# :[id number] Sodium Chloride 0.9% 1, 1040 520 80 000 ml @ 40 mls/hr IV . Q24H [facility] Rx#:[id number] Oral 1920 Output: Urine 705 820 110 Other: Voiding Method Indwelling Catheter Indwelling Catheter Indwelling Catheter # Bowel Movements 1 1 - Exam --GENERAL: The patient is currently on BiPAP looks confused and cannot provide information, obese HEENT: Pupils are round and equally reacting to light. EOMI. No scleral icterus. No conjunctival pallor. Normocephalic, atraumatic. No pharyngeal erythema. No thyromegaly. CARDIOVASCULAR: S1 and S2 present. No murmurs, rubs, or gallops. PULMONARY: Chest is clear to auscultation, no wheezing or crackles. ABDOMEN: Soft, nontender, nondistended, normoactive bowel sounds. No palpable organomegaly. MUSCULOSKELETAL: No joint swelling or deformity. EXTREMITIES: No cyanosis, clubbing, or pedal edema. NEUROLOGICAL: Gross neurological examination did not reveal any focal deficits. SKIN: No rashes. no petechiae. - Labs CBC & Chem 7: 04/13/22 05:07 04/13/22 05:07 Labs: Abnormal Lab Results - Last 24 Hours (Table) 04/08/22 04/09/22 04/09/22 Range/Units 18:06 00:00 08:32 WBC 15.7 H 15.5 H 13.4 H (3.8-10.6) k/uL RBC 3.60 L 3.27 L 3.42 L (3.80-5.40) m/uL Hgb 10.5 L 10.1 L 10.2 L (11.4-16.0) gm/dL Hct 33.5 L 30.7 L 32.3 L (34.0-46.0) % Creatinine (0.52-1.04) mg/dL Glucose (74-99) mg/dL AST (14-36) U/L ALT (4-34) U/L Total Protein (6.3-8.2) g/dL Albumin (3.5-5.0) g/dL 04/09/22 Range/Units 08:32 WBC (3.8-10.6) k/uL RBC (3.80-5.40) m/uL Hgb (11.4-16.0) gm/dL Hct (34.0-46.0) % Creatinine 0.47 L (0.52-1.04) mg/dL Glucose 102 H (74-99) mg/dL AST 76 H (14-36) U/L ALT 131 H (4-34) U/L Total Protein 6.1 L (6.3-8.2) g/dL Albumin 3.4 L (3.5-5.0) g/dL Assessment and Plan Assessment: Large maroon-colored bowel movement likely to GI bleed possible upper GI. Septic shock secondary to acute urinary tract infection requiring pressor support. off pressors now. . Metabolic/toxic encephalopathy. improved. Acute urinary tract infection, culture from previous sample growing E. coli Nonadherence to treatment as an outpatient for her UTI Acute kidney injury likely prerenal. Metabolic acidosis Mild COPD exacerbation Morbid obesity with BMI of 62.0 DVT prophylaxis with heparin subcu Plan: Changed Protonix to IV twice daily. Monitor H&H.General surgery is planning for EGD And colonoscopy tomorrow. Continue with antibiotic currently on cefepime and IV vancomycin dced Urine culture showed E coli and blood culture showed staph epi. off Levophed. Critical care team on board. Patient was on BiPAP and currently titrated down to oxygen 6 L--4L via nasal cannula. Monitor mental status continue with IV steroids and duo nebs. DVT and GI prophylaxis. Further recommendations as per clinical course of the patient DVT prophylaxis: Subcutaneous heparin GI Prophylaxis: Pepcid Prognosis is guarded Time with Patient: Greater than 30
--- NOTE | 2022-04-14 01:11 | P.PN ---
Subjective Progress Note Date: 04/10/22 This is a pleasant 66 years old female with past medical history off Fibromyalgia, Hypertension, chronic bronchitis, muscle spasms, UTI,Anxiety, Depression Patient desires because of fall on her left hip area with left hip pain. Patient is poor historian . Case was discussed with and emergency room physician Dr. Flower. Patient was recently diagnosed with UTI and she was placed on antibiotics, Keflex is one of her home medication. However patient was refusing to take medication for her UTI because of concern for diarrhea. Today she presents be cause of altered mental status and patient is poor historian. Patient at baseline and is bedbound, she has vague history of CHF and COPD but that comes with septic picture, she was dyspneic at home and she was placed on BiPAP first in the emergency room . Family were at bedside and discussed with Dr. Flower the wishes for the patient to be DO NOT INTUBATE but they're okay to start pressors was started on small dose of pressors and blood pressure improved up to 142/82. She is currently saturating 100% on BiPAP. Patient is afebrile. She has evidence of leukocytosis with WBC 19.8. Rest of CBC is unremarkable. INR is normal. PH is low at 7.3. Potassium 4.6, creatinine up at 2.3 liver enzymes mildly elevated, troponin is negative. Urinalysis is suspicious for infection. Urine toxicology is positive for tricyclic antidepressants and benzodiazepines. Serum alcohol less than 10. Influenza, RSV and cov undetected.id urine culture from 03/[address] of the chest without contrast showing mild bibasilar compressive atelectasis and/or parenchymal scarring. Chronic elevation of the right hemidiaphragm. CT of the brain: No acute process. EKG: Normal sinus rhythm at [address]-T changes. Chest x-ray: Patchy infiltrate right suprahilar region may reflect developing infiltrate Patient was started on cefepime and IV vancomycin ER. Patient has multiple drug ALLERGIES she missed a dose of antibiotic 04/03/2022 Patient is in the MICU. Patient is awake alert but lethargic and weak. Afebrile. Was admitted to hospital due to septic shock secondary to urinary tract infection and encephalopathy. Patient was requiring BiPAP with 50% FiO2. Currently on oxygen 6 L via nasal cannula. Patient is also on pressor support with Levophed. Current on antibiotics in the form of cefepime and vancomycin. Urine culture and blood cultures are pending. Blood cultures showed gram-positive cocci. Previous history of urinary tract infection with E. coli. No nausea vomiting or diarrhea. No cough or sputum production. Laboratory pressure WBC 16.8 hemoglobin 12.7 platelets 223 Sodium 143 potassium 6.0 chloride 105 BUN 68 and creatinine 1.58 04/04/2022 Patient is in the MICU. Lying in bed. Awake alert and oriented x3. Patient is lethargic and weak. Currently on oxygen via nasal cannula. Off pressor support. Blood cultures growing staph epidermis. Vancomycin has been discontinued and patient is being continued on cefepime. Urine culture showed gram-negative bacilli. Finalized report is pending. Patient has been afebrile. No nausea vomiting or abdominal pain or diarrhea. No cough or sputum production. Laboratory data showed WBC 13.5 hemoglobin 12.6 and platelets 176 Sodium 143 potassium 5.3 chloride 109 BUN 43 creatinine 0.81 04/05/2022 Patient is currently lying in bed. Awake alert and oriented x3. No complaints of chest pain or shortness of breath. No nausea vomiting abdominal pain or diarrhea. Patient is off pressor support. Continue antibiotics and follow cefepime and duo nebs. Patient is also on IV hydration with normal saline at hand-assisted brother. Laboratory data showed WBC 13.4 hemoglobin 12.0 and platelets 172 Sodium 140 potassium 5.0 chloride 106 bicarb is 21 BUN 36 and creatinine 0.62. Liver enzymes are trending down. Urine culture showed E. coli and blood cultures showed staph epidermis. Pulmonary and ID is on board. 04/07/2022 Patient was transferred back to ICU this morning. She was improving and was hemodynamically stable yesterday. Today morning she did have a large maroon-colored bowel movement and large blood clot. Patient was suspected to have acute GI bleed with history of peptic ulcer disease and has been on omeprazole. Denies any active bleeding currently. Denies any complaints of abdominal pain. Patient was transferred to MICU. Currently blood pressure is stable. Slightly tachycardic with heart rate 101. Repeat hemoglobin level is 11.3 and 10.8. General surgery was consulted and patient is scheduled for EGD and will be Continued on Protonix IV twice daily. Other laboratory showed WBC 11.9 platelets 161. 04/08/2022 Patient is in MICU. Less than the benefit awake alert and oriented 3. No complaints of abdominal pain. Denied any further episodes of blood clots per rectum. No nausea vomiting or diarrhea. No cough or sputum production. Patient has been afebrile. Continued on IV Protonix. Laboratory data showed WBC 15.7 hemoglobin 10.5 and platelets 184. General surgery is planned for colonoscopy and EGD tomorrow. Otherwise patient is being continued on antibiotics, cefepime for E. coli urinary tract infection/septic shock. 04/10/2022 Patient is currently resting in bed comfortable. Awake alert and oriented x3. No acute distress. Currently oxygen at 4 L via nasal cannula. Urine culture positive for E. coli. Patient is being treated cefepime. Patient underwent EGD showed atrophic gastritis and colonoscopy showed tubular adenoma in the transverse colon status post snare polypectomy. No active bleeding noted. Hemoglobin is stable. General surgery and pulmonary is on board. Lab data reviewed. Current medications reviewed. Objective - Vital Signs Vital signs: Vital Signs Temp 97.9 F 04/10/22 19:32 Pulse 95 04/10/22 20:35 Resp 18 04/10/22 20:35 BP 145/76 04/10/22 19:32 Pulse Ox 97 04/10/22 19:32 FiO2 4 04/10/22 08:21 Intake & Output 04/10/22 04/10/22 04/11/22 06:59 18:59 06:59 Intake Total 400 Output Total 700 Balance -700 400 Intake: IV 300 Oral 100 Output: Urine 700 Other: Voiding Method Indwelling Catheter Indwelling Catheter Indwelling Catheter - Exam --GENERAL: The patient is currently on BiPAP looks confused and cannot provide information, obese HEENT: Pupils are round and equally reacting to light. EOMI. No scleral icterus. No conjunctival pallor. Normocephalic, atraumatic. No pharyngeal erythema. No thyromegaly. CARDIOVASCULAR: S1 and S2 present. No murmurs, rubs, or gallops. PULMONARY: Chest is clear to auscultation, no wheezing or crackles. ABDOMEN: Soft, nontender, nondistended, normoactive bowel sounds. No palpable organomegaly. MUSCULOSKELETAL: No joint swelling or deformity. EXTREMITIES: No cyanosis, clubbing, or pedal edema. NEUROLOGICAL: Gross neurological examination did not reveal any focal deficits. SKIN: No rashes. no petechiae. - Labs CBC & Chem 7: 04/13/22 05:07 04/13/22 05:07 Labs: Abnormal Lab Results - Last 24 Hours (Table) 04/10/22 04/10/22 Range/Units 06:41 06:41 WBC 12.42 H (4.50-10.00) X 10*3/uL RBC 2.92 L (4.10-5.20) X 10*6/uL Hgb 8.5 L (12.0-15.0) g/dL Hct 27.3 L (37.2-46.3) % MCHC 31.1 L (32.0-37.0) g/dL RDW 15.7 H (11.5-14.5) % Immature Gran # 0.44 H (0.00-0.04) X 10*3/uL Neutrophils # 8.75 H (1.80-7.70) X 10*3/uL Monocytes # 1.20 H (0.20-1.00) X 10*3/uL Eosinophils # 0.59 H (0.04-0.35) X 10*3/uL Anion Gap 7.90 L (10.00-18.00) mmol/L Creatinine 0.4 L (0.6-1.5) mg/dL BUN/Creatinine Ratio 26.25 H (12.00-20.00) Ratio AST 53 H (13-35) U/L ALT 111 H (8-44) U/L Total Protein 5.3 L (6.2-8.2) g/dL Albumin 3.1 L (3.8-4.9) g/dL Albumin/Globulin Ratio 1.41 L (1.60-3.17) g/dL Assessment and Plan Assessment: Large maroon-colored bowel movement likely to GI bleed possible upper GI.s/pEGD And colonoscopy . no active bleeding noted Septic shock secondary to acute urinary tract infection requiring pressor support. off pressors now. . Metabolic/toxic encephalopathy. improved. Acute urinary tract infection, culture from previous sample growing E. coli Nonadherence to treatment as an outpatient for her UTI Acute kidney injury likely prerenal. Metabolic acidosis Mild COPD exacerbation Morbid obesity with BMI of 62.0 DVT prophylaxis with heparin subcu Plan: Changed Protonix to IV twice daily. Monitor H&H. s/pEGD And colonoscopy . no active bleeding noted HB stable Continue with antibiotic currently on cefepime and IV vancomycin dced Urine culture showed E coli and blood culture showed staph epi. off Levophed. Critical care team on board. Patient was on BiPAP and currently titrated down to oxygen 6 L--4L via nasal cannula. Monitor mental status continue with IV steroids and duo nebs. DVT and GI prophylaxis. Further recommendations as per clinical course of the patient DVT prophylaxis: Subcutaneous heparin GI Prophylaxis: Pepcid Prognosis is guarded Time with Patient: Greater than 30
--- NOTE | 2022-04-14 01:14 | P.PN ---
Subjective Progress Note Date: 04/11/22 This is a pleasant 66 years old female with past medical history off Fibromyalgia, Hypertension, chronic bronchitis, muscle spasms, UTI,Anxiety, Depression Patient desires because of fall on her left hip area with left hip pain. Patient is poor historian . Case was discussed with and emergency room physician Dr. Flower. Patient was recently diagnosed with UTI and she was placed on antibiotics, Keflex is one of her home medication. However patient was refusing to take medication for her UTI because of concern for diarrhea. Today she presents be cause of altered mental status and patient is poor historian. Patient at baseline and is bedbound, she has vague history of CHF and COPD but that comes with septic picture, she was dyspneic at home and she was placed on BiPAP first in the emergency room . Family were at bedside and discussed with Dr. Flower the wishes for the patient to be DO NOT INTUBATE but they're okay to start pressors was started on small dose of pressors and blood pressure improved up to 142/82. She is currently saturating 100% on BiPAP. Patient is afebrile. She has evidence of leukocytosis with WBC 19.8. Rest of CBC is unremarkable. INR is normal. PH is low at 7.3. Potassium 4.6, creatinine up at 2.3 liver enzymes mildly elevated, troponin is negative. Urinalysis is suspicious for infection. Urine toxicology is positive for tricyclic antidepressants and benzodiazepines. Serum alcohol less than 10. Influenza, RSV and cov undetected.id urine culture from 03/[address] of the chest without contrast showing mild bibasilar compressive atelectasis and/or parenchymal scarring. Chronic elevation of the right hemidiaphragm. CT of the brain: No acute process. EKG: Normal sinus rhythm at [address]-T changes. Chest x-ray: Patchy infiltrate right suprahilar region may reflect developing infiltrate Patient was started on cefepime and IV vancomycin ER. Patient has multiple drug ALLERGIES she missed a dose of antibiotic 04/03/2022 Patient is in the MICU. Patient is awake alert but lethargic and weak. Afebrile. Was admitted to hospital due to septic shock secondary to urinary tract infection and encephalopathy. Patient was requiring BiPAP with 50% FiO2. Currently on oxygen 6 L via nasal cannula. Patient is also on pressor support with Levophed. Current on antibiotics in the form of cefepime and vancomycin. Urine culture and blood cultures are pending. Blood cultures showed gram-positive cocci. Previous history of urinary tract infection with E. coli. No nausea vomiting or diarrhea. No cough or sputum production. Laboratory pressure WBC 16.8 hemoglobin 12.7 platelets 223 Sodium 143 potassium 6.0 chloride 105 BUN 68 and creatinine 1.58 04/04/2022 Patient is in the MICU. Lying in bed. Awake alert and oriented x3. Patient is lethargic and weak. Currently on oxygen via nasal cannula. Off pressor support. Blood cultures growing staph epidermis. Vancomycin has been discontinued and patient is being continued on cefepime. Urine culture showed gram-negative bacilli. Finalized report is pending. Patient has been afebrile. No nausea vomiting or abdominal pain or diarrhea. No cough or sputum production. Laboratory data showed WBC 13.5 hemoglobin 12.6 and platelets 176 Sodium 143 potassium 5.3 chloride 109 BUN 43 creatinine 0.81 04/05/2022 Patient is currently lying in bed. Awake alert and oriented x3. No complaints of chest pain or shortness of breath. No nausea vomiting abdominal pain or diarrhea. Patient is off pressor support. Continue antibiotics and follow cefepime and duo nebs. Patient is also on IV hydration with normal saline at hand-assisted brother. Laboratory data showed WBC 13.4 hemoglobin 12.0 and platelets 172 Sodium 140 potassium 5.0 chloride 106 bicarb is 21 BUN 36 and creatinine 0.62. Liver enzymes are trending down. Urine culture showed E. coli and blood cultures showed staph epidermis. Pulmonary and ID is on board. 04/07/2022 Patient was transferred back to ICU this morning. She was improving and was hemodynamically stable yesterday. Today morning she did have a large maroon-colored bowel movement and large blood clot. Patient was suspected to have acute GI bleed with history of peptic ulcer disease and has been on omeprazole. Denies any active bleeding currently. Denies any complaints of abdominal pain. Patient was transferred to MICU. Currently blood pressure is stable. Slightly tachycardic with heart rate 101. Repeat hemoglobin level is 11.3 and 10.8. General surgery was consulted and patient is scheduled for EGD and will be Continued on Protonix IV twice daily. Other laboratory showed WBC 11.9 platelets 161. 04/08/2022 Patient is in MICU. Less than the benefit awake alert and oriented 3. No complaints of abdominal pain. Denied any further episodes of blood clots per rectum. No nausea vomiting or diarrhea. No cough or sputum production. Patient has been afebrile. Continued on IV Protonix. Laboratory data showed WBC 15.7 hemoglobin 10.5 and platelets 184. General surgery is planned for colonoscopy and EGD tomorrow. Otherwise patient is being continued on antibiotics, cefepime for E. coli urinary tract infection/septic shock. 04/10/2022 Patient is currently resting in bed comfortable. Awake alert and oriented x3. No acute distress. Currently oxygen at 4 L via nasal cannula. Urine culture positive for E. coli. Patient is being treated cefepime. Patient underwent EGD showed atrophic gastritis and colonoscopy showed tubular adenoma in the transverse colon status post snare polypectomy. No active bleeding noted. Hemoglobin is stable. General surgery and pulmonary is on board. Lab data reviewed. 04/11/2022 Patient is currently resting in the bed comfortably. Awake alert and oriented x3. No complaints of chest pain or shortness of breath. No nausea vomiting abdominal pain or diarrhea. Did have a bowel movement. No blood noted. Tolerating oral diet. Laboratory data WBC 12.4 hemoglobin 8.4 and sodium 139 potassium 3.6, BUN 8.8 and creatinine 0.5. Pulmonary edema surgery is on board. Current medications reviewed. Objective - Vital Signs Vital signs: Vital Signs Temp 99.1 F 04/11/22 19:01 Pulse 92 04/11/22 19:22 Resp 18 04/11/22 19:22 BP 130/73 04/11/22 19:01 Pulse Ox 94 L 04/11/22 19:01 FiO2 4 04/10/22 08:21 Intake & Output 04/11/22 04/11/22 04/12/22 06:59 18:59 06:59 Weight 212.372 kg Other: Voiding Method Indwelling Catheter Indwelling Catheter - Exam --GENERAL: The patient is currently on BiPAP looks confused and cannot provide information, obese HEENT: Pupils are round and equally reacting to light. EOMI. No scleral icterus. No conjunctival pallor. Normocephalic, atraumatic. No pharyngeal erythema. No thyromegaly. CARDIOVASCULAR: S1 and S2 present. No murmurs, rubs, or gallops. PULMONARY: Chest is clear to auscultation, no wheezing or crackles. ABDOMEN: Soft, nontender, nondistended, normoactive bowel sounds. No palpable organomegaly. MUSCULOSKELETAL: No joint swelling or deformity. EXTREMITIES: No cyanosis, clubbing, or pedal edema. NEUROLOGICAL: Gross neurological examination did not reveal any focal deficits. SKIN: No rashes. no petechiae. - Labs CBC & Chem 7: 04/13/22 05:07 04/13/22 05:07 Labs: Abnormal Lab Results - Last 24 Hours (Table) 04/11/22 04/11/22 Range/Units 06:01 06:01 WBC 12.41 H (4.50-10.00) X 10*3/uL RBC 2.93 L (4.10-5.20) X 10*6/uL Hgb 8.4 L (12.0-15.0) g/dL Hct 27.6 L (37.2-46.3) % MCHC 30.4 L (32.0-37.0) g/dL RDW 15.7 H (11.5-14.5) % Immature Gran # 0.35 H (0.00-0.04) X 10*3/uL Neutrophils # 8.53 H (1.80-7.70) X 10*3/uL Monocytes # 1.38 H (0.20-1.00) X 10*3/uL Eosinophils # 0.59 H (0.04-0.35) X 10*3/uL Basophils # 0.12 H (0.00-0.10) X 10*3/uL Anion Gap 9.90 L (10.00-18.00) mmol/L BUN 8.8 L (9.0-27.0) mg/dL Creatinine 0.5 L (0.6-1.5) mg/dL Assessment and Plan Assessment: Large maroon-colored bowel movement likely to GI bleed possible upper GI.s/pEGD And colonoscopy . no active bleeding noted Septic shock secondary to acute urinary tract infection requiring pressor support. off pressors now. . Metabolic/toxic encephalopathy. improved. Acute urinary tract infection, culture from previous sample growing E. coli Nonadherence to treatment as an outpatient for her UTI Acute kidney injury likely prerenal. Metabolic acidosis Mild COPD exacerbation Morbid obesity with BMI of 62.0 DVT prophylaxis with heparin subcu Plan: Changed Protonix to IV twice daily. Monitor H&H. s/pEGD And colonoscopy . no a ctive bleeding noted HB stable Continue with antibiotic currently on cefepime and IV vancomycin dced Urine culture showed E coli and blood culture showed staph epi. off Levophed. Critical care team on board. Patient was on BiPAP and currently titrated down to oxygen 6 L--4L via nasal cannula. Monitor mental status continue with IV steroids and duo nebs. DVT and GI prophylaxis. Further recommendations as per clinical course of the patient DVT prophylaxis: Subcutaneous heparin GI Prophylaxis: Pepcid Prognosis is guarded Time with Patient: Greater than 30
[2022-04-14] MEDS ORDERED: POTASSIUM CHLORIDE ER 20 MEQ TAB.ER PO STA (01:16)
--- NOTE | 2022-04-14 01:18 | P.PN ---
Subjective Progress Note Date: 04/12/22 This is a pleasant 66 years old female with past medical history off Fibromyalgia, Hypertension, chronic bronchitis, muscle spasms, UTI,Anxiety, Depression Patient desires because of fall on her left hip area with left hip pain. Patient is poor historian . Case was discussed with and emergency room physician Dr. Flower. Patient was recently diagnosed with UTI and she was placed on antibiotics, Keflex is one of her home medication. However patient was refusing to take medication for her UTI because of concern for diarrhea. Today she presents be cause of altered mental status and patient is poor historian. Patient at baseline and is bedbound, she has vague history of CHF and COPD but that comes with septic picture, she was dyspneic at home and she was placed on BiPAP first in the emergency room . Family were at bedside and discussed with Dr. Flower the wishes for the patient to be DO NOT INTUBATE but they're okay to start pressors was started on small dose of pressors and blood pressure improved up to 142/82. She is currently saturating 100% on BiPAP. Patient is afebrile. She has evidence of leukocytosis with WBC 19.8. Rest of CBC is unremarkable. INR is normal. PH is low at 7.3. Potassium 4.6, creatinine up at 2.3 liver enzymes mildly elevated, troponin is negative. Urinalysis is suspicious for infection. Urine toxicology is positive for tricyclic antidepressants and benzodiazepines. Serum alcohol less than 10. Influenza, RSV and cov undetected.id urine culture from 03/[address] of the chest without contrast showing mild bibasilar compressive atelectasis and/or parenchymal scarring. Chronic elevation of the right hemidiaphragm. CT of the brain: No acute process. EKG: Normal sinus rhythm at [address]-T changes. Chest x-ray: Patchy infiltrate right suprahilar region may reflect developing infiltrate Patient was started on cefepime and IV vancomycin ER. Patient has multiple drug ALLERGIES she missed a dose of antibiotic 04/03/2022 Patient is in the MICU. Patient is awake alert but lethargic and weak. Afebrile. Was admitted to hospital due to septic shock secondary to urinary tract infection and encephalopathy. Patient was requiring BiPAP with 50% FiO2. Currently on oxygen 6 L via nasal cannula. Patient is also on pressor support with Levophed. Current on antibiotics in the form of cefepime and vancomycin. Urine culture and blood cultures are pending. Blood cultures showed gram-positive cocci. Previous history of urinary tract infection with E. coli. No nausea vomiting or diarrhea. No cough or sputum production. Laboratory pressure WBC 16.8 hemoglobin 12.7 platelets 223 Sodium 143 potassium 6.0 chloride 105 BUN 68 and creatinine 1.58 04/04/2022 Patient is in the MICU. Lying in bed. Awake alert and oriented x3. Patient is lethargic and weak. Currently on oxygen via nasal cannula. Off pressor support. Blood cultures growing staph epidermis. Vancomycin has been discontinued and patient is being continued on cefepime. Urine culture showed gram-negative bacilli. Finalized report is pending. Patient has been afebrile. No nausea vomiting or abdominal pain or diarrhea. No cough or sputum production. Laboratory data showed WBC 13.5 hemoglobin 12.6 and platelets 176 Sodium 143 potassium 5.3 chloride 109 BUN 43 creatinine 0.81 04/05/2022 Patient is currently lying in bed. Awake alert and oriented x3. No complaints of chest pain or shortness of breath. No nausea vomiting abdominal pain or diarrhea. Patient is off pressor support. Continue antibiotics and follow cefepime and duo nebs. Patient is also on IV hydration with normal saline at hand-assisted brother. Laboratory data showed WBC 13.4 hemoglobin 12.0 and platelets 172 Sodium 140 potassium 5.0 chloride 106 bicarb is 21 BUN 36 and creatinine 0.62. Liver enzymes are trending down. Urine culture showed E. coli and blood cultures showed staph epidermis. Pulmonary and ID is on board. 04/07/2022 Patient was transferred back to ICU this morning. She was improving and was hemodynamically stable yesterday. Today morning she did have a large maroon-colored bowel movement and large blood clot. Patient was suspected to have acute GI bleed with history of peptic ulcer disease and has been on omeprazole. Denies any active bleeding currently. Denies any complaints of abdominal pain. Patient was transferred to MICU. Currently blood pressure is stable. Slightly tachycardic with heart rate 101. Repeat hemoglobin level is 11.3 and 10.8. General surgery was consulted and patient is scheduled for EGD and will be Continued on Protonix IV twice daily. Other laboratory showed WBC 11.9 platelets 161. 04/08/2022 Patient is in MICU. Less than the benefit awake alert and oriented 3. No complaints of abdominal pain. Denied any further episodes of blood clots per rectum. No nausea vomiting or diarrhea. No cough or sputum production. Patient has been afebrile. Continued on IV Protonix. Laboratory data showed WBC 15.7 hemoglobin 10.5 and platelets 184. General surgery is planned for colonoscopy and EGD tomorrow. Otherwise patient is being continued on antibiotics, cefepime for E. coli urinary tract infection/septic shock. 04/10/2022 Patient is currently resting in bed comfortable. Awake alert and oriented x3. No acute distress. Currently oxygen at 4 L via nasal cannula. Urine culture positive for E. coli. Patient is being treated cefepime. Patient underwent EGD showed atrophic gastritis and colonoscopy showed tubular adenoma in the transverse colon status post snare polypectomy. No active bleeding noted. Hemoglobin is stable. General surgery and pulmonary is on board. Lab data reviewed. 04/11/2022 Patient is currently resting in the bed comfortably. Awake alert and oriented x3. No complaints of chest pain or shortness of breath. No nausea vomiting abdominal pain or diarrhea. Did have a bowel movement. No blood noted. Tolerating oral diet. Laboratory data WBC 12.4 hemoglobin 8.4 and sodium 139 potassium 3.6, BUN 8.8 and creatinine 0.5. Pulmonary edema surgery is on board. 04/12/2022 Patient is currently resting in bed. Awake alert and oriented x3. No complaints of chest pain or shortness of breath. No nausea vomiting abdominal diarrhea. Tolerating oral diet. No active bleeding noted. No headache or dizziness or lightheadedness. Patient is being continued on cefepime for E. coli urinary tract infection Hemoglobin is stable. Laboratory showed WBC 11.24 hemoglobin 8.6 and platelets 225 Sodium 139 potassium 3.1 BUN 9.3 and creatinine 0.5 General surgery is on board. Current medications reviewed. Objective - Vital Signs Vital signs: Vital Signs Temp 98.3 F 04/12/22 14:56 Pulse 96 04/12/22 20:07 Resp 14 04/12/22 14:56 BP 134/65 04/12/22 14:56 Pulse Ox 94 L 04/12/22 16:39 FiO2 4 04/10/22 08:21 Intake & Output 04/12/22 04/12/22 04/13/22 06:59 18:59 06:59 Intake Total 600 Output Total 2300 Balance -1700 Intake: Oral 600 Output: Urine 2300 Other: Voiding Method Indwelling Catheter # Bowel Movements 2 - Exam --GENERAL: The patient is currently on BiPAP looks confused and cannot provide information, obese HEENT: Pupils are round and equally reacting to light. EOMI. No scleral icterus. No conjunctival pallor. Normocephalic, atraumatic. No pharyngeal erythema. No thyromegaly. CARDIOVASCULAR: S1 and S2 present. No murmurs, rubs, or gallops. PULMONARY: Chest is clear to auscultation, no wheezing or crackles. ABDOMEN: Soft, nontender, nondistended, normoactive bowel sounds. No palpable organomegaly. MUSCULOSKELETAL: No joint swelling or deformity. EXTREMITIES: No cyanosis, clubbing, or pedal edema. NEUROLOGICAL: Gross neurological examination did not reveal any focal deficits. SKIN: No rashes. no petechiae. - Labs CBC & Chem 7: 04/13/22 05:07 04/13/22 05:07 Labs: Abnormal Lab Results - Last 24 Hours (Table) 04/12/22 04/12/22 Range/Units 06:29 06:29 WBC 11.24 H (4.50-10.00) X 10*3/uL RBC 2.99 L (4.10-5.20) X 10*6/uL Hgb 8.6 L (12.0-15.0) g/dL Hct 28.1 L (37.2-46.3) % MCHC 30.6 L (32.0-37.0) g/dL RDW 15.9 H (11.5-14.5) % Immature Gran # 0.28 H (0.00-0.04) X 10*3/uL Monocytes # 1.15 H (0.20-1.00) X 10*3/uL Eosinophils # 0.70 H (0.04-0.35) X 10*3/uL Potassium 3.1 L (3.5-5.5) mmol/L Carbon Dioxide 27.7 H (20.0-27.5) mmol/L Anion Gap 8.30 L (10.00-18.00) mmol/L Creatinine 0.5 L (0.6-1.5) mg/dL Assessment and Plan Assessment: Large maroon-colored bowel movement likely to GI bleed possible upper GI.s/pEGD And colonoscopy . no active bleeding noted Septic shock secondary to acute urinary tract infection requiring pressor support. off pressors now. . Metabolic/toxic encephalopathy. improved. Acute urinary tract infection, culture from previous sample growing E. coli Nonadherence to treatment as an outpatient for her UTI Acute kidney injury likely prerenal. Metabolic acidosis Mild COPD exacerbation Morbid obesity with BMI of 62.0 Iron deficiency anemia. DVT prophylaxis with heparin subcu Plan: Changed Protonix to IV twice daily. Monitor H&H. s/pEGD And colonoscopy . no active bleeding noted HB stable Continue with antibiotic currently on cefepime and IV vancomycin dced Urine culture showed E coli and blood culture showed staph epi. off Levophed. Patient was on BiPAP and currently titrated down to oxygen 6 L--4L via nasal cannula. Monitor mental status continue with IV steroids -->PO and duo nebs. DVT and GI prophylaxis. Further recommendations as per clinical course of the patient DVT prophylaxis: Subcutaneous heparin GI Prophylaxis: PPI Prognosis is guarded Time with Patient: Greater than 30
--- NOTE | 2022-04-14 01:21 | P.PN ---
Subjective Progress Note Date: 04/13/22 This is a pleasant 66 years old female with past medical history off Fibromyalgia, Hypertension, chronic bronchitis, muscle spasms, UTI,Anxiety, Depression Patient desires because of fall on her left hip area with left hip pain. Patient is poor historian . Case was discussed with and emergency room physician Dr. Flower. Patient was recently diagnosed with UTI and she was placed on antibiotics, Keflex is one of her home medication. However patient was refusing to take medication for her UTI because of concern for diarrhea. Today she presents be cause of altered mental status and patient is poor historian. Patient at baseline and is bedbound, she has vague history of CHF and COPD but that comes with septic picture, she was dyspneic at home and she was placed on BiPAP first in the emergency room . Family were at bedside and discussed with Dr. Flower the wishes for the patient to be DO NOT INTUBATE but they're okay to start pressors was started on small dose of pressors and blood pressure improved up to 142/82. She is currently saturating 100% on BiPAP. Patient is afebrile. She has evidence of leukocytosis with WBC 19.8. Rest of CBC is unremarkable. INR is normal. PH is low at 7.3. Potassium 4.6, creatinine up at 2.3 liver enzymes mildly elevated, troponin is negative. Urinalysis is suspicious for infection. Urine toxicology is positive for tricyclic antidepressants and benzodiazepines. Serum alcohol less than 10. Influenza, RSV and cov undetected.id urine culture from 03/[address] of the chest without contrast showing mild bibasilar compressive atelectasis and/or parenchymal scarring. Chronic elevation of the right hemidiaphragm. CT of the brain: No acute process. EKG: Normal sinus rhythm at [address]-T changes. Chest x-ray: Patchy infiltrate right suprahilar region may reflect developing infiltrate Patient was started on cefepime and IV vancomycin ER. Patient has multiple drug ALLERGIES she missed a dose of antibiotic 04/03/2022 Patient is in the MICU. Patient is awake alert but lethargic and weak. Afebrile. Was admitted to hospital due to septic shock secondary to urinary tract infection and encephalopathy. Patient was requiring BiPAP with 50% FiO2. Currently on oxygen 6 L via nasal cannula. Patient is also on pressor support with Levophed. Current on antibiotics in the form of cefepime and vancomycin. Urine culture and blood cultures are pending. Blood cultures showed gram-positive cocci. Previous history of urinary tract infection with E. coli. No nausea vomiting or diarrhea. No cough or sputum production. Laboratory pressure WBC 16.8 hemoglobin 12.7 platelets 223 Sodium 143 potassium 6.0 chloride 105 BUN 68 and creatinine 1.58 04/04/2022 Patient is in the MICU. Lying in bed. Awake alert and oriented x3. Patient is lethargic and weak. Currently on oxygen via nasal cannula. Off pressor support. Blood cultures growing staph epidermis. Vancomycin has been discontinued and patient is being continued on cefepime. Urine culture showed gram-negative bacilli. Finalized report is pending. Patient has been afebrile. No nausea vomiting or abdominal pain or diarrhea. No cough or sputum production. Laboratory data showed WBC 13.5 hemoglobin 12.6 and platelets 176 Sodium 143 potassium 5.3 chloride 109 BUN 43 creatinine 0.81 04/05/2022 Patient is currently lying in bed. Awake alert and oriented x3. No complaints of chest pain or shortness of breath. No nausea vomiting abdominal pain or diarrhea. Patient is off pressor support. Continue antibiotics and follow cefepime and duo nebs. Patient is also on IV hydration with normal saline at hand-assisted brother. Laboratory data showed WBC 13.4 hemoglobin 12.0 and platelets 172 Sodium 140 potassium 5.0 chloride 106 bicarb is 21 BUN 36 and creatinine 0.62. Liver enzymes are trending down. Urine culture showed E. coli and blood cultures showed staph epidermis. Pulmonary and ID is on board. 04/07/2022 Patient was transferred back to ICU this morning. She was improving and was hemodynamically stable yesterday. Today morning she did have a large maroon-colored bowel movement and large blood clot. Patient was suspected to have acute GI bleed with history of peptic ulcer disease and has been on omeprazole. Denies any active bleeding currently. Denies any complaints of abdominal pain. Patient was transferred to MICU. Currently blood pressure is stable. Slightly tachycardic with heart rate 101. Repeat hemoglobin level is 11.3 and 10.8. General surgery was consulted and patient is scheduled for EGD and will be Continued on Protonix IV twice daily. Other laboratory showed WBC 11.9 platelets 161. 04/08/2022 Patient is in MICU. Less than the benefit awake alert and oriented 3. No complaints of abdominal pain. Denied any further episodes of blood clots per rectum. No nausea vomiting or diarrhea. No cough or sputum production. Patient has been afebrile. Continued on IV Protonix. Laboratory data showed WBC 15.7 hemoglobin 10.5 and platelets 184. General surgery is planned for colonoscopy and EGD tomorrow. Otherwise patient is being continued on antibiotics, cefepime for E. coli urinary tract infection/septic shock. 04/10/2022 Patient is currently resting in bed comfortable. Awake alert and oriented x3. No acute distress. Currently oxygen at 4 L via nasal cannula. Urine culture positive for E. coli. Patient is being treated cefepime. Patient underwent EGD showed atrophic gastritis and colonoscopy showed tubular adenoma in the transverse colon status post snare polypectomy. No active bleeding noted. Hemoglobin is stable. General surgery and pulmonary is on board. Lab data reviewed. 04/11/2022 Patient is currently resting in the bed comfortably. Awake alert and oriented x3. No complaints of chest pain or shortness of breath. No nausea vomiting abdominal pain or diarrhea. Did have a bowel movement. No blood noted. Tolerating oral diet. Laboratory data WBC 12.4 hemoglobin 8.4 and sodium 139 potassium 3.6, BUN 8.8 and creatinine 0.5. Pulmonary edema surgery is on board. 04/12/2022 Patient is currently resting in bed. Awake alert and oriented x3. No complaints of chest pain or shortness of breath. No nausea vomiting abdominal diarrhea. Tolerating oral diet. No active bleeding noted. No headache or dizziness or lightheadedness. Patient is being continued on cefepime for E. coli urinary tract infection Hemoglobin is stable. Laboratory showed WBC 11.24 hemoglobin 8.6 and platelets 225 Sodium 139 potassium 3.1 BUN 9.3 and creatinine 0.5 General surgery is on board. 04/13/2022 Patient is currently resting in bed. Awake alert and oriented x3. No complaints of dark-colored stools blood in the stool. Hemoglobin is fairly stable. Patient is also found to have iron deficient and iron infusion was ordered for tomorrow. Continue to monitor H&H. Otherwise patient is being continued on cefepime for urinary tract infection with E. coli. Completed antibiotic course and possible discontinuation of antibiotics tomorrow. No fever no chills. No headache or dizziness redness. Hemodynamically stable. PPI will be changed to by mouth. Anticipate discharge to rehab in the next 24 hours. Current medications reviewed. Objective - Vital Signs Vital signs: Vital Signs Temp 98.2 F 04/13/22 14:00 Pulse 100 04/13/22 14:59 Resp 18 04/13/22 08:00 BP 137/81 04/13/22 14:00 Pulse Ox 96 04/13/22 14:00 FiO2 4 04/10/22 08:21 Intake & Output 04/12/22 04/13/22 04/13/22 18:59 06:59 18:59 Intake Total 600 450 Output Total 2300 850 700 Balance -1700 -850 -250 Intake: Oral 600 450 Output: Urine 2300 850 700 Other: Voiding Method Indwelling Catheter Indwelling Catheter Indwelling Catheter # Bowel Movements 2 - Exam --GENERAL: The patient is currently on BiPAP looks confused and cannot provide information, obese HEENT: Pupils are round and equally reacting to light. EOMI. No scleral icterus. No conjunctival pallor. Normocephalic, atraumatic. No pharyngeal erythema. No thyromegaly. CARDIOVASCULAR: S1 and S2 present. No murmurs, rubs, or gallops. PULMONARY: Chest is clear to auscultation, no wheezing or crackles. ABDOMEN: Soft, nontender, nondistended, normoactive bowel sounds. No palpable organomegaly. MUSCULOSKELETAL: No joint swelling or deformity. EXTREMITIES: No cyanosis, clubbing, or pedal edema. NEUROLOGICAL: Gross neurological examination did not reveal any focal deficits. SKIN: No rashes. no petechiae. - Labs CBC & Chem 7: 04/13/22 05:07 04/13/22 05:07 Labs: Abnormal Lab Results - Last 24 Hours (Table) 04/13/22 04/13/22 04/13/22 Range/Units 05:07 05:07 14:37 WBC 10.33 H (4.50-10.00) X 10*3/uL RBC 2.95 L (4.10-5.20) X 10*6/uL Hgb 8.4 L (12.0-15.0) g/dL Hct 27.7 L (37.2-46.3) % MCHC 30.3 L (32.0-37.0) g/dL RDW 16.0 H (11.5-14.5) % Immature Gran # 0.20 H (0.00-0.04) X 10*3/uL Monocytes # 1.27 H (0.20-1.00) X 10*3/uL Eosinophils # 0.70 H (0.04-0.35) X 10*3/uL Potassium 3.1 L (3.5-5.5) mmol/L Carbon Dioxide 28.6 H (20.0-27.5) mmol/L Anion Gap 8.20 L (10.00-18.00) mmol/L BUN 7.5 L (9.0-27.0) mg/dL Creatinine 0.4 L (0.6-1.5) mg/dL BUN/Creatinine Ratio 20.13 H (12.00-20.00) Ratio Iron 15 L (50-170) ug/dL TIBC 224 L (228-460) ug/dL % Saturation 6.88 L (12.00-45.00) Transferrin 160.0 L (204.0-354.0) mg/dL Urine Protein Trace H (Negative) Urine Glucose (UA) Trace H (Negative) Urine Blood Large H (Negative) Ur Leukocyte Esterase Trace H (Negative) Urine RBC 75 H (0-5) /hpf Urine WBC 8 H (0-5) /hpf Amorphous Sediment Rare H (None) /hpf Urine Mucus Few H (None) /hpf Assessment and Plan Assessment: Large maroon-colored bowel movement likely to GI bleed possible upper GI.s/pEGD And colonoscopy . no active bleeding noted Septic shock secondary to acute urinary tract infection requiring pressor support. off pressors now. . Metabolic/toxic encephalopathy. improved. Acute urinary tract infection, culture from previous sample growing E. coli Nonadherence to treatment as an outpatient for her UTI Acute kidney injury likely prerenal. Metabolic acidosis Mild COPD exacerbation Morbid obesity with BMI of 62.0 Iron deficiency anemia. DVT prophylaxis with heparin subcu Plan: Changed Protonix to IV twice daily. Monitor H&H. s/pEGD And colonoscopy . no active bleeding noted HB stable Continue with antibiotic currently on cefepime and IV vancomycin dced Urine culture showed E coli and blood culture showed staph epi. off Levophed. Patient was on BiPAP and currently titrated down to oxygen 6 L--4L via nasal cannula. Monitor mental status continue with IV steroids -->PO and duo nebs. DVT and GI prophylaxis. Further recommendations as per clinical course of the patient DVT prophylaxis: Subcutaneous heparin GI Prophylaxis: PPI Prognosis is guarded Time with Patient: Greater than 30
[2022-04-14] MEDS: CEFEPIME 2 GM in SODIUM CHLORIDE 0.9% 100 ML IVPB SCH ×2 (01:59→15:39)
[2022-04-14] MEDS: SODIUM CHLORIDE 0.9% 1,000 ML IV SCH ×2 (01:59→22:16)
[2022-04-14 06:00] LABS: Glucose,Whole Blood 92 mg/dL (70-110)
[2022-04-14] MEDS: PANTOPRAZOLE 40 MG TABLET PO SCH ×2 (06:14→18:04)
[2022-04-14] MEDS: FERROUS SULFATE 325 MG TAB PO SCH ×2 (06:14→18:04)
[2022-04-14] MEDS: IPRATROPIUM-ALBUTEROL 3 ML NEB INHALATION SCH ×4 (08:07→21:27)
[2022-04-14] MEDS: SODIUM FERRIC GLUCONAT-SUCROSE 125 MG in SODIUM CHLORIDE 0.9% 100 ML IVPB SCH (09:19)
[2022-04-14] MEDS: predniSONE 10 MG TAB PO SCH (09:19)
[2022-04-14] MEDS: POTASSIUM CHLORIDE ER 20 MEQ TAB.ER PO SCH ×2 (09:19→22:16)
[2022-04-14 10:19] LABS: Basophils # (A) 0.09 X 10*3/uL (0.00-0.10); Basophils % (A) 0.9 %; Eosinophils # (A) 0.65 X 10*3/uL (0.04-0.35); Eosinophils % (A) 6.6 %; HCT 29.9 % (37.2-46.3); Immature Grans, Automated 1.2 %; Lymphocytes # (A) 1.14 X 10*3/uL (0.90-5.00); Lymphocytes % (A) 11.5 %; MCH 28.7 pg (27.0-32.0); MCHC 30.1 g/dL (32.0-37.0); MCV 95.2 fL (80.0-97.0); Mean Platelet Volume 10.1 fL (9.5-12.2); Monocytes # (A) 1.09 X 10*3/uL (0.20-1.00); NRBC Per 100 WBC 0 /100 WBCS (0.0-0.0); Neutrophils # (A) 6.81 X 10*3/uL (1.80-7.70); Neutrophils % (A) 68.8 %; Platelet Count 270 X 10*3/uL (140-440); RBC 3.14 X 10*6/uL (4.10-5.20); RDW 15.9 % (11.5-14.5)
[2022-04-14 10:44] LABS: African American GFR (CKD) 116.9 (60.0-200.0); Anion Gap 7.8 mmol/L (10.00-18.00); BUN/Creat Ratio 13.8 Ratio (12.00-20.00); Blood Urea Nitrogen 6.9 mg/dL (9.0-27.0); Calcium 9.2 mg/dL (8.7-10.3); Carbon Dioxide 29.2 mmol/L (20.0-27.5); Non-African American GFR(CKD) 100.9 (60.0-200.0); Potassium 3.8 mmol/L (3.5-5.5)
--- NOTE | 2022-04-14 10:53 | P.PN ---
Subjective Progress Note Date: 04/14/22 CHIEF COMPLAINT: GI bleed HISTORY OF PRESENT ILLNESS: Patient is currently on a regular medical floor. Sh ghazala is status post EGD and colonoscopy. Results have revealed atrophic gastritis, erosive esophagitis and removal of 2 colon polyps. Patient denies any abdominal pain. She's having bowel movements. No further blood reported. Denies any abdominal pain. She is tolerating diet. She likely be discharged to [facility] today. Afebrile. WBC 9.9 hemoglobin 9.0 platelets 270 PHYSICAL EXAM: VITAL SIGNS: Reviewed GENERAL: Well-developed in no acute distress. HEENT: No sclera icterus. Extraocular movements grossly intact. Moist buccal mucosa. Head is atraumatic, normocephalic. Hears conversational speech. No nasal drainage. NECK: Supple without lymphadenopathy. CHEST: Non-labored respirations and equal bilateral excursions. CARDIOVASCULAR: Palpable 2+ radial pulses. ABDOMEN: Soft. obese. Nondistended. Nontender. MUSCULOSKELETAL: No clubbing or cyanosis. NEUROLOGIC: No focal or lateralizing signs. Cranial nerves II through XII grossly intact. PSYCH: Appropriate affect. Alert and oriented to person, place and time. SKIN: Well perfused. Good skin turgor. ASSESSMENT: 1. Acute GI bleed with bright red blood per rectum and blood clots 2. History of peptic ulcer disease 3. UTI with sepsis 4. Morbid obesity 5. Acute hypoxic respiratory failure 6. History of fibromyalgia 7. GERD 8. History of hypertension 9. Leukocytosis 10. Acute renal failure 11. History of NSAID use 12. Iron deficiency anemia PLAN: -Patient can be discharged from surgical standpoint when medically cleared -Continue regular diet -Continue PPI -Continue supportive care -Patient receiving IV iron -Recommend repeat colonoscopy in 3 years Physician Microsoft Net Developer note has been reviewed by physician. Signing provider agrees with the documented findings, assessment, and plan of care. Patient seen and evaluated with above. CHIEF COMPLAINT: Gastrointestinal bleeding HISTORY OF PRESENT ILLNESS: The patient is a 66-year-old female who had gastrointestinal bleeding. She denies any further bleeding since her upper or lower endoscopy. She is tolerating diet. She is receiving iron infusions due to severe in deficiency anemia. ROS: No reports of nausea and vomiting. She is having bowel movements. No fevers or chills. No new chest pain. No productive sputum PHYSICAL EXAM: VITAL SIGNS: Reviewed CONSTITUTIONAL: Well developed and in no acute distress. EYES: Conjuctivae without sclera icterus. Extraocular movements grossly intact. HEAD, EARS, NOSE, THROAT: Moist buccal mucosa. Head is atraumatic, normocephalic. Hears conversational speech. No nasal drainage. RESPIRATORY: Non-labored respirations and equal bilateral excursions. CARDIOVASCULAR: Palpable 2+ radial pulses. ABDOMEN: Obese. No peritonitis. MUSCULOSKELETAL: No gross deformity of the lower extremities noted. No clubbing. No cyanosis. On air mattress specialty bed. SKIN: Good skin turgor. Well perfused. NEUROLOGIC: Cranial nerves II through XII grossly intact. No focal or lateralizing signs. PSYCH: Appropriate affect. Alert and oriented to person, place and time. CLINICAL LABS: Reviewed. Hemoglobin improved to 8.4-9.0. WBC normal. ASSESSMENT: 1. Gastrointestinal bleeding 2. Morbid obesity due to excess calories, BMI 63.5 3. Iron deficiency anemia PLAN: 1. Diet as tolerated 2. Stable for discharge medically stable Objective - Vital Signs Vital signs: Vital Signs Temp 98.2 F 04/14/22 09:17 Pulse 101 H 04/14/22 09:17 Resp 20 04/14/22 09:17 BP 135/79 04/14/22 09:17 Pulse Ox 96 04/14/22 09:17 FiO2 4 04/10/22 08:21 Intake & Output 04/13/22 04/14/22 04/14/22 18:59 06:59 18:59 Intake Total 450 Output Total 700 2250 Balance -250 -2250 Intake: Oral 450 Output: Urine 700 2250 Other: Voiding Method Indwelling Catheter Indwelling Catheter - Labs CBC & Chem 7: 04/14/22 07:36 04/14/22 07:36 Labs: Abnormal Lab Results - Last 24 Hours (Table) 04/13/22 04/14/22 04/14/22 Range/Units 14:37 07:36 07:36 RBC 3.14 L (4.10-5.20) X 10*6/uL Hgb 9.0 L (12.0-15.0) g/dL Hct 29.9 L (37.2-46.3) % MCHC 30.1 L (32.0-37.0) g/dL RDW 15.9 H (11.5-14.5) % Immature Gran # 0.12 H (0.00-0.04) X 10*3/uL Monocytes # 1.09 H (0.20-1.00) X 10*3/uL Eosinophils # 0.65 H (0.04-0.35) X 10*3/uL Carbon Dioxide 29.2 H (20.0-27.5) mmol/L Anion Gap 7.80 L (10.00-18.00) mmol/L BUN 6.9 L (9.0-27.0) mg/dL Creatinine 0.5 L (0.6-1.5) mg/dL Urine Protein Trace H (Negative) Urine Glucose (UA) Trace H (Negative) Urine Blood Large H (Negative) Ur Leukocyte Esterase Trace H (Negative) Urine RBC 75 H (0-5) /hpf Urine WBC 8 H (0-5) /hpf Amorphous Sediment Rare H (None) /hpf Urine Mucus Few H (None) /hpf
--- NOTE | 2022-04-14 14:01 | P.PN ---
Subjective This is a pleasant 66 years old female with past medical history off Fibromyalgia, Hypertension, chronic bronchitis, muscle spasms, UTI,Anxiety, De pression Patient desires because of fall on her left hip area with left hip pain. Patient is poor historian . Case was discussed with and emergency room physician Dr. Flower. Patient was recently diagnosed with UTI and she was placed on antibiotics, Keflex is one of her home medication. However patient was refusing to take medication for her UTI because of concern for diarrhea. Today she presents because of altered mental status and patient is poor historian. Patient at baseline and is bedbound, she has vague history of CHF and COPD but that comes with septic picture, she was dyspneic at home and she was placed on BiPAP first in the emergency room . Family were at bedside and discussed with Dr. Flower the wishes for the patient to be DO NOT INTUBATE but they're okay to start pressors was started on small dose of pressors and blood pressure improved up to 142/82. She is currently saturating 100% on BiPAP. Patient is afebrile. She has evidence of leukocytosis with WBC 19.8. Rest of CBC is unremarkable. INR is normal. PH is low at 7.3. Potassium 4.6, creatinine up at 2.3 liver enzymes mildly elevated, troponin is negative. Urinalysis is suspicious for infection. Urine toxicology is positive for tricyclic antidepressants and benzodiazepines. Serum alcohol less than 10. Influenza, RSV and cov undetected.id urine culture from 03/[address] of the chest without contrast showing mild bibasilar compressive atelectasis and/or parenchymal scarring. Chronic elevation of the right hemidiaphragm. CT of the brain: No acute process. EKG: Normal sinus rhythm at [address]-T changes. Chest x-ray: Patchy infiltrate right suprahilar region may reflect developing infiltrate Patient was started on cefepime and IV vancomycin ER. Patient has multiple drug ALLERGIES she missed a dose of antibiotic 04/03/2022 Patient is in the MICU. Patient is awake alert but lethargic and weak. Afebrile. Was admitted to hospital due to septic shock secondary to urinary tract infection and encephalopathy. Patient was requiring BiPAP with 50% FiO2. Currently on oxygen 6 L via nasal cannula. Patient is also on pressor support with Levophed. Current on antibiotics in the form of cefepime and vancomycin. Urine culture and blood cultures are pending. Blood cultures showed gram-positive cocci. Previous history of urinary tract infection with E. coli. No nausea vomiting or diarrhea. No cough or sputum production. Laboratory pressure WBC 16.8 hemoglobin 12.7 platelets 223 Sodium 143 potassium 6.0 chloride 105 BUN 68 and creatinine 1.58 04/04/2022 Patient is in the MICU. Lying in bed. Awake alert and oriented x3. Patient is lethargic and weak. Currently on oxygen via nasal cannula. Off pressor support. Blood cultures growing staph epidermis. Vancomycin has been discontinued and patient is being continued on cefepime. Urine culture showed gram-negative bacilli. Finalized report is pending. Patient has been afebrile. No nausea vomiting or abdominal pain or diarrhea. No cough or sputum production. Laboratory data showed WBC 13.5 hemoglobin 12.6 and platelets 176 Sodium 143 potassium 5.3 chloride 109 BUN 43 creatinine 0.81 04/05/2022 Patient is currently lying in bed. Awake alert and oriented x3. No complaints of chest pain or shortness of breath. No nausea vomiting abdominal pain or diarrhea. Patient is off pressor support. Continue antibiotics and follow cefepime and duo nebs. Patient is also on IV hydration with normal saline at hand-assisted brother. Laboratory data showed WBC 13.4 hemoglobin 12.0 and platelets 172 Sodium 140 potassium 5.0 chloride 106 bicarb is 21 BUN 36 and creatinine 0.62. Liver enzymes are trending down. Urine culture showed E. coli and blood cultures showed staph epidermis. Pulmonary and ID is on board. 04/07/2022 Patient was transferred back to ICU this morning. She was improving and was hemodynamically stable yesterday. Today morning she did have a large maroon-colored bowel movement and large blood clot. Patient was suspected to have acute GI bleed with history of peptic ulcer disease and has been on omeprazole. Denies any active bleeding currently. Denies any comp laints of abdominal pain. Patient was transferred to MICU. Currently blood pressure is stable. Slightly tachycardic with heart rate 101. Repeat hemoglobin level is 11.3 and 10.8. General surgery was consulted and patient is scheduled for EGD and will be Continued on Protonix IV twice daily. Other laboratory showed WBC 11.9 platelets 161. 04/08/2022 Patient is in MICU. Less than the benefit awake alert and oriented 3. No complaints of abdominal pain. Denied any further episodes of blood clots per rectum. No nausea vomiting or diarrhea. No cough or sputum production. Patient has been afebrile. Continued on IV Protonix. Laboratory data showed WBC 15.7 hemoglobin 10.5 and platelets 184. General surgery is planned for colonoscopy and EGD tomorrow. Otherwise patient is being continued on antibiotics, cefepime for E. coli urinary tract infection/septic shock. 04/10/2022 Patient is currently resting in bed comfortable. Awake alert and oriented x3. No acute distress. Currently oxygen at 4 L via nasal cannula. Urine culture positive for E. coli. Patient is being treated cefepime. Patient underwent EGD showed atrophic gastritis and colonoscopy showed tubular adenoma in the transverse colon status post snare polypectomy. No active bleeding noted. Hemoglobin is stable. General surgery and pulmonary is on board. Lab data reviewed. 04/11/2022 Patient is currently resting in the bed comfortably. Awake alert and oriented x3. No complaints of chest pain or shortness of breath. No nausea vomiting abdominal pain or diarrhea. Did have a bowel movement. No blood noted. Tolerating oral diet. Laboratory data WBC 12.4 hemoglobin 8.4 and sodium 139 potassium 3.6, BUN 8.8 and creatinine 0.5. Pulmonary edema surgery is on board. 04/12/2022 Patient is currently resting in bed. Awake alert and oriented x3. No complaints of chest pain or shortness of breath. No nausea vomiting abdominal diarrhea. Tolerating oral diet. No active bleeding noted. No headache or dizziness or lightheadedness. Patient is being continued on cefepime for E. coli urinary tract infection Hemoglobin is stable. Laboratory showed WBC 11.24 hemoglobin 8.6 and platelets 225 Sodium 139 potassium 3.1 BUN 9.3 and creatinine 0.5 General surgery is on board. 04/13/2022 Patient is currently resting in bed. Awake alert and oriented x3. No complaints of dark-colored stools blood in the stool. Hemoglobin is fairly stable. Patient is also found to have iron deficient and iron infusion was ordered for tomorrow. Continue to monitor H&H. Otherwise patient is being continued on cefepime for urinary tract infection with E. coli. Completed antibiotic course and possible discontinuation of antibiotics tomorrow. No fever no chills. No headache or dizziness redness. Hemodynamically stable. PPI will be changed to by mouth. Anticipate discharge to rehab in the next 24 hours. 04/14/2022 Patient lying in bed looks comfortable, looks very tired and weak but she denies any specific complaints. No chest pain or dyspnea. No abdominal pain. Her urinary tract infection is been treated since admission and currently denies any urinary symptoms. Le catheter in place and patient remains on cefepime. Repeat urinalysis today still abnormal therefore we will keep the antibiotic for now. She has positive blood culture but looks like contaminant however the bacteria are sensitive to the antibiotic she is receiving now. Several consultants on the case, all. For discharge, surgery team after the patient for discharge. We recommend patient follow up with PCP Dr. Ward, surgeon Dr. Thompson and lineman upon discharge Patient would benefit from urologist evaluation as an outpatient as well, please refer to discharge instructions Objective - Vital Signs Vital signs: Vital Signs Temp 98.2 F 04/14/22 09:17 Pulse 82 04/14/22 11:59 Resp 20 04/14/22 09:17 BP 135/79 04/14/22 09:17 Pulse Ox 96 04/14/22 09:17 FiO2 4 04/10/22 08:21 Intake & Output 04/13/22 04/14/22 04/14/22 18:59 06:59 18:59 Intake Total 450 Output Total 700 2250 Balance -250 -2250 Intake: Oral 450 Output: Urine 700 2250 Other: Voiding Method Indwelling Catheter Indwelling Catheter Indwelling Catheter - Exam -GENERAL: The patient is alert and oriented x3, not in any acute distress. Morbidly obese. Generally weak HEENT: Pupils are round and equally reacting to light. EOMI. No scleral icterus. No conjunctival pallor. Normocephalic, atraumatic. No pharyngeal erythema. No thyromegaly. CARDIOVASCULAR: S1 and S2 present. No murmurs, rubs, or gallops. PULMONARY: Chest is clear to auscultation, no wheezing or crackles. ABDOMEN: Soft, nontender, nondistended, normoactive bowel sounds. No palpable organomegaly. MUSCULOSKELETAL: No joint swelling or deformity. EXTREMITIES: No cyanosis, clubbing, or pedal edema. NEUROLOGICAL: Gross neurological examination did not reveal any focal deficits. SKIN: No rashes. no petechiae. - Labs CBC & Chem 7: 04/14/22 07:36 04/14/22 07:36 Labs: Abnormal Lab Results - Last 24 Hours (Table) 04/13/22 04/14/22 04/14/22 Range/Units 14:37 07:36 07:36 RBC 3.14 L (4.10-5.20) X 10*6/uL Hgb 9.0 L (12.0-15.0) g/dL Hct 29.9 L (37.2-46.3) % MCHC 30.1 L (32.0-37.0) g/dL RDW 15.9 H (11.5-14.5) % Immature Gran # 0.12 H (0.00-0.04) X 10*3/uL Monocytes # 1.09 H (0.20-1.00) X 10*3/uL Eosinophils # 0.65 H (0.04-0.35) X 10*3/uL Carbon Dioxide 29.2 H (20.0-27.5) mmol/L Anion Gap 7.80 L (10.00-18.00) mmol/L BUN 6.9 L (9.0-27.0) mg/dL Creatinine 0.5 L (0.6-1.5) mg/dL Urine Protein Trace H (Negative) Urine Glucose (UA) Trace H (Negative) Urine Blood Large H (Negative) Ur Leukocyte Esterase Trace H (Negative) Urine RBC 75 H (0-5) /hpf Urine WBC 8 H (0-5) /hpf Amorphous Sediment Rare H (None) /hpf Urine Mucus Few H (None) /hpf Assessment and Plan Assessment: Acute urinary tract infection, culture from previous sample growing E. coli Septic shock secondary to acute urinary tract infection, resolved Acute GI bleed status post colonoscopy showing internal hemorrhoids and edema, status post biopsy showing hyperplastic polyp. No more bleeding Metabolic/toxic encephalopathy. Resolved Nonadherence to treatment as an outpatient for her UTI Acute kidney injury Metabolic acidosis Possible COPD exacerbation Morbid obesity with BMI of 54 Plan: Continue with antibiotic currently on cefepime Continue prednisone 10 mg daily (patient confirmed to me it is a home dose) Continue iron replacement therapy General surgery and pulmonary had cleared the patient for discharge Continue with Le catheter and possible consider for discontinue it Labs and medication were reviewed.. Continue same treatment. Continue with symptomatic treatment. Resume home medication. Monitor labs and vitals. DVT and GI prophylaxis. Further recommendations as per clinical course of the patient DVT prophylaxis:no Subcutaneous heparin for GI bleed GI Prophylaxis: Ppi Prognosis remains guarded Pending placement
[2022-04-14] MEDS: DOCUSATE 100 MG CAP PO SCH (22:16)
[2022-04-14] MEDS: QUEtiapine 25 MG TAB PO SCH (22:16)
[2022-04-15] MEDS: CEFEPIME 2 GM in SODIUM CHLORIDE 0.9% 100 ML IVPB SCH ×2 (01:22→13:23)
[2022-04-15] MEDS: PANTOPRAZOLE 40 MG TABLET PO SCH (06:33)
[2022-04-15] MEDS: FERROUS SULFATE 325 MG TAB PO SCH (06:34)
[2022-04-15 07:25] VITALS: RESP 20
[2022-04-15] MEDS: IPRATROPIUM-ALBUTEROL 3 ML NEB INHALATION SCH ×3 (07:51→16:45)
[2022-04-15] MEDS: predniSONE 10 MG TAB PO SCH (10:29)
[2022-04-15] MEDS: SODIUM FERRIC GLUCONAT-SUCROSE 125 MG in SODIUM CHLORIDE 0.9% 100 ML IVPB SCH (10:29)
--- NOTE | 2022-04-15 11:08 | P.PN ---
Subjective Progress Note Date: 04/15/22 CHIEF COMPLAINT: GI bleed HISTORY OF PRESENT ILLNESS: Patient is status post EGD and colonoscopy. Results have revealed atrophic gastritis, erosive esophagitis and removal of 2 colon polyps. Patient denies any abdominal pain. She's having bowel movements. No further blood reported. Denies any abdominal pain. She is tolerating diet. She is scheduled for discharge to [facility] today. Hemoglobin 9 yesterday PHYSICAL EXAM: VITAL SIGNS: Reviewed GENERAL: Well-developed in no acute distress. HEENT: No sclera icterus. Extraocular movements grossly intact. Moist buccal mucosa. Head is atraumatic, normocephalic. Hears conversational speech. No nasal drainage. NECK: Supple without lymphadenopathy. CHEST: Non-labored respirations and equal bilateral excursions. CARDIOVASCULAR: Palpable 2+ radial pulses. ABDOMEN: Soft. obese. Nondistended. Nontender. MUSCULOSKELETAL: No clubbing or cyanosis. NEUROLOGIC: No focal or lateralizing signs. Cranial nerves II through XII grossly intact. PSYCH: Appropriate affect. Alert and oriented to person, place and time. SKIN: Well perfused. Good skin turgor. ASSESSMENT: 1. Acute GI bleed with bright red blood per rectum and blood clots 2. History of peptic ulcer disease 3. UTI with sepsis 4. Morbid obesity 5. Acute hypoxic respiratory failure 6. History of fibromyalgia 7. GERD 8. History of hypertension 9. Leukocytosis 10. Acute renal failure 11. History of NSAID use 12. Iron deficiency anemia PLAN: -Patient can be discharged from surgical standpoint when medically cleared -Continue regular diet -Continue PPI -Continue supportive care -Patient receiving IV iron -Recommend repeat colonoscopy in 3 years Physician Truck Greaser note has been reviewed by physician. Signing provider agrees with the documented findings, assessment, and plan of care. Objective - Vital Signs Vital signs: Vital Signs Temp 98.0 F 04/15/22 07:24 Pulse 94 04/15/22 08:03 Resp 20 04/15/22 07:24 BP 130/72 04/15/22 07:24 Pulse Ox 96 04/15/22 07:53 FiO2 4 04/10/22 08:21 Intake & Output 04/14/22 04/15/22 04/15/22 18:59 06:59 18:59 Output Total 1300 Balance -1300 Output: Urine 1300 Le #2 1300 Other: Voiding Method Indwelling Catheter External Catheter - Labs CBC & Chem 7: 04/14/22 07:36 04/14/22 07:36 Labs: Abnormal Lab Results - Last 24 Hours (Table) 04/14/22 04/14/22 Range/Units 07:36 07:36 RBC 3.14 L (4.10-5.20) X 10*6/uL Hgb 9.0 L (12.0-15.0) g/dL Hct 29.9 L (37.2-46.3) % MCHC 30.1 L (32.0-37.0) g/dL RDW 15.9 H (11.5-14.5) % Immature Gran # 0.12 H (0.00-0.04) X 10*3/uL Monocytes # 1.09 H (0.20-1.00) X 10*3/uL Eosinophils # 0.65 H (0.04-0.35) X 10*3/uL Carbon Dioxide 29.2 H (20.0-27.5) mmol/L Anion Gap 7.80 L (10.00-18.00) mmol/L BUN 6.9 L (9.0-27.0) mg/dL Creatinine 0.5 L (0.6-1.5) mg/dL
[2022-04-15] MEDS ORDERED: TAMSULOSIN 0.4 MG CAP.ER.24H PO SCH (11:30)
[2022-04-15 11:49] LABS: HCT 29.9 % (34.0-46.0); HGB 9.1 gm/dL (11.4-16.0); Hypochromasia Moderate; MCH 28.7 pg (25.0-35.0); MCHC 30.5 g/dL (31.0-37.0); MCV 94.3 fL (80.0-100.0); Mean Platelet Volume 8.1; Platelet Count 256 k/uL (150-450); RBC 3.17 m/uL (3.80-5.40); RDW 15.1 % (11.5-15.5); WBC 8.8 k/uL (3.8-10.6)
[2022-04-15 14:58] VITALS: BP 141/75; PULSE 102; TEMP 97.3
--- NOTE | 2022-04-15 22:05 | P.DS ---
Providers Date of admission: 04/02/22 14:54 Attending physician: Konrad Josue MD Consults: 04/02/22 14:31 Consult Physician Routine Consulting Provider: Shane Zarate Consult Reason/Comments: UTI, septic shock on vasopressors Do you want consulting provider notified?: Already Contacted 04/07/22 09:43 Consult Physician Urgent Consulting Provider: Jocelin Zayas Consult Reason/Comments: GI bleed Do you want consulting provider notified?: Yes Primary care physician: Jose Rangel Hospital Course: Diagnoses: Acute urinary tract infection, culture from previous sample growing E. coli Septic shock secondary to acute urinary tract infection, resolved Acute GI bleed status post colonoscopy showing internal hemorrhoids and edema, status post biopsy showing hyperplastic polyp. No more bleeding Metabolic/toxic encephalopathy. Resolved Nonadherence to treatment as an outpatient for her UTI Acute kidney injury Metabolic acidosis Possible COPD exacerbation Morbid obesity with BMI of 54 Hospital course: This is a pleasant 66 years old female with past medical history off Fibromyalgia, Hypertension, chronic bronchitis, muscle spasms, UTI,Anxiety, Depression Patient was recently diagnosed with UTI and she was placed on antibiotics, Keflex is one of her home medication. However patient was refusing to take medication for her UTI because of concern for diarrhea. she presents because of altered mental status and patient is poor historian. Patient was diagnosed with septic shock secondary to acute urinary tract infection and she was treated in the ICU, she's been followed closely by pulmonary/critical care team. She was treated with broad-spectrum antibiotics and IV fluids and she showed interval improvement patient gets stabilized and transferred to the general medical floor. She is off pressors fully awake and oriented, denies any chest pain or dyspnea, no diarrhea or vomiting and tolerated his diet well. 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 at bedside and they have lengthy discussion with the patient with the recommendation Patient also had anemia with colonoscopy showing hemorrhoids which is most likely the source, patient did quite other surgery for discharge. Hemoglobin is stable. Patient was cleared for discharge by all consultants including general surgery and pulmonary. Patient will be discharged on short course of oral antibiotic Patient is saturating high 90s on room air. And workup showing anemia of chronic disease. Le catheter was discontinued and PVR was checked today and was 45. Problems and management plan were discussed with the patient and he verbalized understanding and acceptance Patient was found stable and can be discharged home in guarded prognosis however he needs follow-up as an outpatient. Patient was instructed to follow up with PCP Dr. Ward within one week and patient agrees with the appointments made for her on 04/18 Also I discussed with the patient and her appointments made with Dr. Zayas on 04/[address] Zarate and and she verbalized understanding and acceptance to these appointments with her . Also patient was instructed to follow up with urologist Dr. Waters in 7-10 days and she agrees Physical exam -Gen: patient is a AAOx3, no distress. Morbidly obese. Generally weak CVS: S1-S2, RRR, no murmur Lungs: B/L CTA, no wheezing Abdomen: soft, no distention, no tenderness, positive bowel sounds Extremity: no leg edema or induration Time spent more than 35 minutes Patient Condition at Discharge: Serious Plan - Discharge Summary New Discharge Prescriptions: New cefUROXime axetiL [Ceftin] 500 mg PO BID 7 Days #14 tab Ferrous Sulfate [Iron (65 MG Elemental)] 325 mg PO BID-W/MEALS #60 tab QUEtiapine [SEROquel] 25 mg PO HS #30 tab Pantoprazole [Protonix] 40 mg PO AC-BID #60 tab Albuterol Inhaler [Ventolin Hfa Inhaler] 2 puff INHALATION QID PRN #8 gm PRN Reason: Shortness Of Breath Or Wheezing Continue Montelukast [Singulair] 10 mg PO DAILY Amitriptyline HCl [Elavil] 50 - 100 mg PO HS FLUoxetine HCL 40 mg PO DAILY Changed predniSONE 10 mg PO DAILY #0 Discontinued Diclofenac Sodium [Voltaren] 75 mg PO BID Naproxen [EC-Naprosyn] 500 mg PO BID PRN PRN Reason: Pain Cephalexin [Keflex] 500 mg PO Q8HR #21 cap lisinopriL 30 mg PO DAILY Omeprazole 40 mg PO DAILY Furosemide [Lasix] 40 mg PO BID PRN PRN Reason: Edema Baclofen [Lioresal] 20 mg PO TID Pregabalin [Lyrica] 150 mg PO TID hydrOXYzine HCL [Atarax] 25 mg PO TID PRN PRN Reason: Anxiety Cyclobenzaprine [Flexeril] 10 mg PO TID PRN PRN Reason: Muscle Spasm Discharge Medication List Amitriptyline HCl [Elavil] 50 - 100 mg PO HS 02/18/21 [History] Montelukast [Singulair] 10 mg PO DAILY 02/18/21 [History] FLUoxetine HCL 40 mg PO DAILY 03/27/22 [History] Albuterol Inhaler [Ventolin Hfa Inhaler] 2 puff INHALATION QID PRN #8 gm 04/15/22 [Rx] Ferrous Sulfate [Iron (65 MG Elemental)] 325 mg PO BID-W/MEALS #60 tab 04/15/22 [Rx] Pantoprazole [Protonix] 40 mg PO AC-BID #60 tab 04/15/22 [Rx] QUEtiapine [SEROquel] 25 mg PO HS #30 tab 04/15/22 [Rx] cefUROXime axetiL [Ceftin] 500 mg PO BID 7 Days #14 tab 04/15/22 [Rx] predniSONE 10 mg PO DAILY #0 04/15/22 [Rx] Follow up Appointment(s)/Referral(s): Juan Carlos Garcia MD [Primary Care Provider] - 04/18/22 11:00 am Jocelin Zayas MD [STAFF PHYSICIAN] - 04/22/22 1:30 pm Esteban Ignacio MD [STAFF PHYSICIAN] - 1 Week (urologist office will call with appointment time) Shane Zarate MD [STAFF PHYSICIAN] - 05/07/22 1:00 pm Activity/Diet/Wound Care/Special Instructions: Heart healthy diet Activity is restricted till you see your doctor Discharge Disposition: HOME WITH HOME HEALTH SERVICES
--- NOTE | 2022-04-17 08:27 | CDI ---
Documentation Clarification Form Date: 04/17/22 From: Helene Manuel Admit Date: 04/02/2022 02:54:00 PM Patient Name: Angie Abdi Visit Number: [id number] Discharge Date: 04/15/2022 05:09:00 PM ATTENTION: The Clinical Documentation Specialists (CDI) and [facility] Coding Staff appreciate your assistance in clarifying documentation. Please respond to the clarification below the line at the bottom and electronically sign. The CDI & [facility] Coding staff will review the response and follow-up if needed. Please note: Queries are made part of the Legal Health Record. If you have any questions, please contact the author of this message via ITS. Dr. Konrad Josue, UTI is documented in ED Notes and patient presented with Le which was replaced in ED. Additional clarification regarding the etiology of the UTI is requested. History/Risk Factors: sepsis w septic shock, toxic metabolic encephalopathy, acute hypoxic respiratory failure, APOLONIA, morbid obesity w BMI of 63, ABLA, COPD w acute exacerbation, HTN w CHF Clinical Indicators: Presented to ED with El catheter in place. Urinalysis: dark brown, turbid, 2+ protein, large leukocyte esterase, RBC large, WBC >182, WBC clumps many Urine culture: E. coli Lab results: WBC 19.8, Neutrophils 15.9, lactic acid 0.9, Cr 2.37 Treatment: Le replaced in ED, IV Vancomycin, IV Maxipime Please clarify the etiology of the UTI, if known: [ ] Le catheter [ ] UTI not related to catheter [ ] Other condition, please specify [ ] Unable to determine Unable to determine MTDD
--- NOTE | 2022-04-17 08:45 | CDI ---
Documentation Clarification Form Date: 04/17/22 From: Helene Manuel Admit Date: 04/02/2022 02:54:00 PM Patient Name: Angie Abdi Visit Number: [id number] Discharge Date: 04/15/2022 05:09:00 PM ATTENTION: The Clinical Documentation Specialists (CDI) and [facility] Coding Staff appreciate your assistance in clarifying documentation. Please respond to the clarification below the line at the bottom and electronically sign. The CDI & [facility] Coding staff will review the response and follow-up if needed. Please note: Queries are made part of the Legal Health Record. If you have any questions, please contact the author of this message via ITS. Dr. Silvestre E Sheet, Acute GI bleed with bright red blood per rectum and blood clots is documented starting on 04/07 progress notes. Additional clarification regarding the etiology of the GI bleed is requested. History/risk factors: sepsis w septic shock, toxic metabolic encephalopathy, acute hypoxic respiratory failure, APOLONIA, morbid obesity w BMI of 63, ABLA, COPD w acute exacerbation, HTN w CHF Clinical Indicators: Acute GI bleeding with bright red blood per rectum and blood clots, transferred to ICU. Acute blood loss anemia, no transfusions. EGD/colonoscopy performed and findings: atrophic gastritis, LA grade B erosive esophagitis, Grade i internal hemorrhoids, no external hemorrhoids, no AV malformations, no sigmoid diverticulosis, transverse polypectomy Treatment: EGD, colonoscopy w polypectomy Medication: Protonix IV Please clarify the etiology of the GI bleed, if known: [ ] GIB due to LA grade B erosive esophagitis [ ] GIB due to atrophic gastritus [ ] GIB due to internal hemorrohoids, grade 1 [ ] GIB due to transverse polyps [ ] GIB, etiology unknown [ ] Other, please specify [ ] Unable to determine GIB due to internal hemorrohoids, grade 1 MTDD
== END 2022-04-15 17:09 | disposition home health service (06) | DRG 871 ==
LOC: EC 11:09 → 2SICU 14:54 → 4SSUR 04-07 07:37 → 2SICU 04-07 08:58 → 4SSUR 04-09 17:55
PROVIDERS: ADMIT Internal Medicine; ATTEND Internal Medicine
PROC: 5A09457 Assistance with Respiratory Ventilation, 24-96 Consecutive Hours, Continuous Positive Airway Pressure (ICD-10-PCS; principal; 2022-04-02)
PROC: 02HV33Z Insertion of Infusion Device into Superior Vena Cava, Percutaneous Approach (ICD-10-PCS; principal; 2022-04-02)
PROC: 3E043XZ Introduction of Vasopressor into Central Vein, Percutaneous Approach (ICD-10-PCS; principal; 2022-04-02)
PROC: 0DJ08ZZ Inspection of Upper Intestinal Tract, Via Natural or Artificial Opening Endoscopic (ICD-10-PCS; 2022-04-10 10:30)
PROC: 0DBL8ZX Excision of Transverse Colon, Via Natural or Artificial Opening Endoscopic, Diagnostic (ICD-10-PCS; 2022-04-10 10:30)
DX: A41.51 Sepsis due to Escherichia coli [E. coli] (principal); G92.8 Other toxic encephalopathy; R65.21 Severe sepsis with septic shock; J96.01 Acute respiratory failure with hypoxia; N17.9 Acute kidney failure, unspecified; N39.0 Urinary tract infection, site not specified; Z68.44 Body mass index [BMI] 60.0-69.9, adult; J98.11 Atelectasis; E87.20 Acidosis, unspecified; D62 Acute posthemorrhagic anemia; J44.1 Chronic obstructive pulmonary disease with (acute) exacerbation; K22.10 Ulcer of esophagus without bleeding; I11.0 Hypertensive heart disease with heart failure; I50.9 Heart failure, unspecified; E66.01 Morbid (severe) obesity due to excess calories; Z66 Do not resuscitate; Z20.822 Contact with and (suspected) exposure to COVID-19; Z28.310 Unvaccinated for COVID-19; D63.8 Anemia in other chronic diseases classified elsewhere; K64.0 First degree hemorrhoids; K29.40 Chronic atrophic gastritis without bleeding; D12.3 Benign neoplasm of transverse colon; K21.9 Gastro-esophageal reflux disease without esophagitis; T36.1X6A Underdosing of cephalosporins and other beta-lactam antibiotics, initial encounter; F32.A Depression, unspecified; F41.1 Generalized anxiety disorder; M79.7 Fibromyalgia; M25.552 Pain in left hip; M62.838 Other muscle spasm; R74.01 Elevation of levels of liver transaminase levels; Z91.128 Patient's intentional underdosing of medication regimen for other reason; Z79.899 Other long term (current) drug therapy; Z74.01 Bed confinement status; Z87.440 Personal history of urinary (tract) infections; Z87.11 Personal history of peptic ulcer disease; Z71.3 Dietary counseling and surveillance; Z88.1 Allergy status to other antibiotic agents; Z88.0 Allergy status to penicillin; Z88.2 Allergy status to sulfonamides
CPT/HCPCS: 36415; 36556; 36600; 43235; 45385; 70450; 71045; 71250; 76770; 80048; 80053; 80306; 80320; 81001; 82140; 82805; 83540; 83550; 83605; 83735; 83880; 84132; 84484; 85025; 85027; 85610; 85730; 86850; 86900; 86901; 87040; 87077; 87086; 87186; 87636; 88305; 93005; 94640; 94660; 94760; 96365; 96366; 96368; 96375; 99291